=== PATIENT | male | born 1960 | race Caucasian/White ===

== ENCOUNTER → 2017-03-05 | Day surgery (SDC) | payer BC ==
[~2017-03-05] MED LIST: AMLODIPINE PO; ASPIR-LOW81 MG PO; BELLADONNA/OPIUM 60 MG SUPP PR ONE; DEXAMETHASONE SOD PHOS INJ 4 MG/ML VIAL ONE; FENTANYL CITRATE/PF 100MCG/2 ML INJ ONE; FENTANYL PATCH TOP; FENTANYL1 EAC1 TOP; FLUCONAZOLE PO; HYDROCODONE PO; IBUPROFEN PO; IOPAMIDOL 610MG/1ML 300 MG/ML VIAL IV ONE; KEYTRUDA IV; KLOR-CON20 MEQ PO; LIDOCAINE HCL 2% LOCAL INJ 5 ML SDV VIAL INJ ONE; LIOTHYRONINE SO5 MCG PO; LOSARTAN PO; METFORMIN HCL500 M2 PO; MIDAZOLAM HCL 2 MG/2 ML VIAL ONE; MYRBETRIQ50 MG PO; ONDANSETRON HCL INJ 2 MG/ML VIAL ONE; PANTOPRAZOLE SO40 MG PO; PIPERACILLIN/TAZO 2.25 GM 50 ML IV ONE; PRAVASTATIN PO; PRAVASTATIN SOD40 MG PO; PROPOFOL IV EMULSION 10 MG/ML 20 ML VIAL ONE; RANITIDINE HCL150 MG PO; SENNA LAX8.6 MG PO; SEVOFLURANE INHAL SOLN 250 ML PEN BTL ONE; TAMSULOSIN HCL0.4 MG PO; TYLENOL WITH C1 EAC1; TYLENOL WITH C1 EACH PO; VITAMIN D PO
--- NOTE | 2017-04-15 05:51 | Operative Report ---
DATE OF PROCEDURE: March 05, 2017 PREOPERATIVE DIAGNOSES 1. Bilateral ureteral strictures. 2. Bilateral hydronephrosis due to stricture. 3. Bilateral indwelling ureteral stents. POSTOPERATIVE DIAGNOSES 1. Bilateral ureteral strictures. 2. Bilateral hydronephrosis due to stricture. 3. Bilateral indwelling ureteral stents. OPERATIONS PERFORMED 1. Cystourethroscopy with complicated removal of bilateral indwelling double ureteral stents (separate procedure performed for the diagnosis of stents). 2. Cystourethroscopy with dilation of bilateral ureteral strictures (separate procedure performed for diagnosis of stricture). 3. Cystourethroscopy with insertion of a total of 4 indwelling ureteral stents, 2 in each side (separate procedure performed to relieve the hydronephrosis). 4. Radiological services for supervision and interpretation of stricture dilation. 5. Interpretation of retrograde ureteropyelography. 6. Supervision of fluoroscopy. No radiologist present. ANESTHESIA: General. COMPLICATIONS: None. CLINICAL SUMMARY: Please refer to prior operative reports. The patient's clinical status is unchanged. OPERATIVE PROCEDURE IN DETAIL: Informed consent was verified. Paulo Wolf was properly identified, taken to the operating room, placed on the cystoscopy table in supine position. Anesthesia was uneventfully begun. The patient was then carefully and gently repositioned in the dorsal lithotomy position with all pressure points well padded. His genitalia were prepared and draped in the usual sterile fashion. A 22.5-[place] cystoscope sheath with the visual obturator in place was atraumatically inserted into the patient's urethra. It was guided down the unremarkable distal urethra past the prostate bed and into the patient's bladder where panendoscopy revealed stents emerging from both ureteral orifices. A guidewire was then placed into the right ureter. We were then able to grasp both stents and extract them entirely and discard them. Dual lumen ureteral catheter was then utilized as a coaxial dilator sheath. It was introduced over the guidewire and guided to the level of the patient's kidney. Clear fluid was obtained. Contrast was injected. A secondary guidewire was placed. With cystoscopic and fluoroscopic guidance, 2 separate indwelling ureteral stents were placed on the right. They were both 6-[place] in size. An identical maneuver and identical results was obtained on the left hand side with the exception of the fact that dark cola colored urine was obtained from the left-sided hydronephrosis. This was sent for culture and sensitivity. With cystoscopic and fluoroscopic guidance, 2 separate indwelling ureteral stents were placed on left hand side, a 7-[place] and 6-[place] ureteral catheter. The retaining sutures were cut short. Interpretation of retrograde ureteropyelography: Contrast was instilled in a retrograde fashion bilaterally. There was bilateral hydronephrosis. It was worse on the left. The stents were in good position, coiled in the patient's kidneys as well as the patient's bladder at the end of the case. The patient's bladder was then drained. Cystoscope was withdrawn. A belladonna and opium suppository was placed revealing a smooth prostate that is difficult to size. No nodules were identified. The patient was then uneventfully reversed from anesthesia and taken to the recovery room in stable condition. There were no complications to the procedure. He tolerated the procedure well. Explicit postoperative instructions were given. We plan to follow the patient up in the office of course on a long-term basis. Job#: [id number] cc:MADALYN LAU MD
== END | disposition home or self-care (01) ==
LOC: OR 06:16
PROVIDERS: ATTEND Urology
DX: N13.1 Hydronephrosis with ureteral stricture, not elsewhere classified (principal); Z46.6 Encounter for fitting and adjustment of urinary device; E11.22 Type 2 diabetes mellitus with diabetic chronic kidney disease; I12.9 Hypertensive chronic kidney disease with stage 1 through stage 4 chronic kidney disease, or unspecified chronic kidney disease; N18.9 Chronic kidney disease, unspecified; Z85.118 Personal history of other malignant neoplasm of bronchus and lung
CPT/HCPCS: 52332; 52341; 74420; 87086; C2617 ×2; J1100; J2001; J2250; J2405; J2543; Q9967

== ENCOUNTER → 2017-05-04 | Outpatient (CLI) | payer BC ==
[~2017-05-04] MED LIST changes: -BELLADONNA/OPIUM 60 MG SUPP PR ONE; -DEXAMETHASONE SOD PHOS INJ 4 MG/ML VIAL ONE; -FENTANYL CITRATE/PF 100MCG/2 ML INJ ONE; -IOPAMIDOL 610MG/1ML 300 MG/ML VIAL IV ONE; -LIDOCAINE HCL 2% LOCAL INJ 5 ML SDV VIAL INJ ONE; -MIDAZOLAM HCL 2 MG/2 ML VIAL ONE; -ONDANSETRON HCL INJ 2 MG/ML VIAL ONE; -PIPERACILLIN/TAZO 2.25 GM 50 ML IV ONE; -PROPOFOL IV EMULSION 10 MG/ML 20 ML VIAL ONE; -SEVOFLURANE INHAL SOLN 250 ML PEN BTL ONE
--- NOTE | 2017-05-04 19:56 | Diagnostic Imaging Report ---
Renal Scan Reason for exam: 56 M with bilateral kidney stones x 30 years; dual bilateral ureteral stents replaced every 3 months since 08/2016. Radiopharmaceutical: Tc-99m MAG3 10 mCi Report: After administration of the radiopharmaceutical, dynamic images of the kidneys were obtained through 40 minutes. LEFT KIDNEY: Perfusion is prompt. The left kidney has a reniform shape with marked thinning of the renal cortex. Extraction of tracer from the blood pool by the remaining renal cortex is markedly decreased. No clearance of tracer from the renal parenchyma is seen during the study. The pelvicaliceal system is dilated. There is no pooling of tracer within the pelvicaliceal system. No drainage of tracer from the pelvicaliceal study occurs. No tracer is seen in the left ureter. RIGHT KIDNEY: Perfusion is prompt. The kidney has a reniform shape with mildly irregular contour and slight narrowing of the lower pole. Extraction of tracer from the blood pool is normal. Clearance of tracer from the renal parenchyma is prompt. The pelvicaliceal system is mild to moderately dilated. Increased pooling of tracer is seen within the pelvicaliceal system, predominantly in the renal pelvis. No net drainage of tracer is seen from the pelvicaliceal study during the study. No stasis of tracer is seen in the right ureter. DIFFERENTIAL RENAL FUNCTION: Left kidney 12% and right kidney 88% (normal 43-57%). Impression: 1. The left kidney consists of a thin rim of cortex but no tubular function is seen. The kidney contributes 12% of total renal function. 2. The right kidney shows some scarring but remaining renal parenchyma functions normally. Absence of net drainage of tracer from the pelvicalyceal system is worrisome for physiologically significant UPJ obstruction although this is not adequately assessed without Lasix washout. Signed by: Dr. Merary Castillo M.D. on 05/04/2017 7:53 PM
== END ==
LOC: NM 16:07
PROVIDERS: ATTEND Urology
DX: N13.30 Unspecified hydronephrosis (principal)
CPT/HCPCS: 78708; A9562

== ENCOUNTER → 2017-05-26 | Day surgery (SDC) | payer BC ==
[~2017-05-26] MED LIST changes: +BELLADONNA/OPIUM 60 MG SUPP PR ONE; +DEXAMETHASONE SOD PHOS INJ 4 MG/ML VIAL ONE; +FENTANYL CITRATE/PF 100MCG/2 ML INJ ONE; +FLUCONAZOLE 200 MG/100 ML 100 ML IV ONE; +IOPAMIDOL 610MG/1ML 300 MG/ML VIAL IV ONE; +LEVOTHYROXINE88 MCG PO; +LIDOCAINE HCL 2% LOCAL INJ 5 ML SDV VIAL INJ ONE; +MIDAZOLAM HCL 2 MG/2 ML VIAL ONE; +ONDANSETRON HCL INJ 2 MG/ML VIAL ONE; +PIPER-TAZ 3.375 GM 50 ML ONE; +PROPOFOL IV EMULSION 10 MG/ML 20 ML VIAL ONE; +SEVOFLURANE INHAL SOLN 250 ML PEN BTL ONE
--- OUTSIDE RECORDS SUMMARY | 2017-05-26 07:47 | XMS REPORT ---
Author Author [facility] Address Unknown Phone Unavailable Care Team Providers [facility] Specialist Name Role Phone SABRINA MARTINS Unavailable Unavailable Problems This patient has no known problems. Allergies, Adverse Reactions, Alerts This patient has no known allergies or adverse reactions. Medications This patient has no known medications. Results Test Description Test Time Test Comments Text Results Atomic Results Result Comments RENAL SCAN W/LASIX [place] [address] Patient Name: MARYBETH BISWAS MR #: [id number] : 1960 Age/Sex: 56/M Req #: [id number] Adm Physician: Ordered by: SABRINA MARTINS MD Report #: [id number] Location: [place] Room/Bed: Procedure: [id number] NM/ RENAL SCAN W/LASLARS Exam Date: 05/04/17 Exam Time: 1615 REPORT STATUS: Signed Renal Scan Reason for exam: 56 M with bilateral kidney stones x 30 years; dual bilateral ureteral stents replaced every 3 months since 08/2016. Radiopharmaceutical: Tc-99m MAG3 10 mCi Report: After administration of the radiopharmaceutical, dynamic images of the kidneys were obtained through 40 minutes. LEFT KIDNEY: Perfusion is prompt. The left kidney has a reniform shape with marked thinning of the renal cortex. Extraction of tracer from the blood pool by the remaining renal cortex is markedly decreased. No clearance of tracer from the renal parenchyma is seen during the study. The pelvicaliceal system is dilated. There is no pooling of tracer within the pelvicaliceal system. No drainage of tracer from the pelvicaliceal study occurs. No tracer is seen in the left ureter. RIGHT KIDNEY: Perfusion is prompt. The kidney has a reniform shape with mildly irregular contour and slight narrowing of the lower pole. Extraction of tracer from the blood pool is normal. Clearance of tracer from the renal parenchyma is prompt. The pelvicaliceal system is mild to moderately dilated. Increased pooling of tracer is seen within the pelvicaliceal system, predominantly in the renal pelvis. No net drainage of tracer is seen from the pelvicaliceal study during the study. No stasis of tracer is seen in the right ureter. DIFFERENTIAL RENAL FUNCTION: Left kidney 12% and right kidney 88% (normal 43-57%). Impression: 1. The left kidney consists of a thin rim of cortex but no tubular function is seen. The kidney contributes 12% of total renal function. 2. The right kidney shows some scarring but remaining renal parenchyma functions normally. Absence of net drainage of tracer from the pelvicalyceal system is worrisome for physiologically significant UPJ obstruction although this is not adequately assessed without Lasix washout. Signed by: Dr. Moshe Cast M.D. on 05/04/2017 7:53 PM Dictated By: MOSHE CAST MD 52 Transcribed By: RIKKI on 05/04/171952 COPY TO: SABRINA MARTINS MD
--- NOTE | 2017-07-18 13:08 | Operative Report ---
DATE OF PROCEDURE: May 26, 2017 PREOPERATIVE DIAGNOSES 1. Elevated prostate specific antigen. 2. Bilateral ureteral strictures. 3. Bilateral hydronephrosis due to stricture. 4. Bilateral ureteral stents (foreign bodies). POSTOPERATIVE DIAGNOSES 1. Elevated prostate specific antigen. 2. Bilateral ureteral strictures. 3. Bilateral hydronephrosis due to stricture. 4. Bilateral ureteral stents (foreign bodies). PROCEDURES PERFORMED 1. Prostate biopsies (separately performed from a separate approach for a separate diagnosis). 2. Interpretation of prostate ultrasound. 3. Interpretation of ultrasonographic guidance for needle biopsies of the prostate. 4. Cystourethroscopy with removal of bilateral ureteral stents (separate procedure performed for the diagnosis of stents). 5. Cystourethroscopy with dilation of bilateral ureteral strictures (separate procedure performed for the bilateral strictures). 6. Cystourethroscopy with placement of bilateral double ureteral stents (separate procedure performed to relieve the hydronephrosis with placing of 4 total stents into 2 ureters). 7. Urological services for supervision and interpretation for stricture dilation. 8. Interpretation of retrograde ureteropyelography. 9. Supervision of fluoroscopy; no radiologist present. ANESTHESIA: General. COMPLICATIONS: None. CLINICAL SUMMARY: Please refer to patient's voluminous chart and previous operative reports. The patient does have an elevated PSA and we plan on evaluating that further. OPERATIVE PROCEDURE IN DETAIL: Informed consent was verified. Paulo Wolf was properly identified, taken to the operating room, and placed on the cystoscopy table in supine position. Anesthesia was uneventfully begun. Patient was then carefully and gently repositioned in dorsal lithotomy position with all pressure points well padded. Transrectal sonography was performed. Real time sonography was performed. The patient's prostate was rather large at 95 mL. There were calcifications that were present diffusely. No suspicious hypoechoic lesions were identified. With ultrasonographic guidance, needle biopsies of the prostate were taken. Two biopsies were taken at each of 6 places. These were differentiated right versus left and base versus mid versus apex. Once all biopsies were obtained, the patient's genitalia were prepared and draped in usual sterile fashion. The 22.5-[place] cystoscope sheath with a visual obturator in place was atraumatically inserted in the patient's urethra and guided down the unremarkable urethra past some wide caliber non-clinically significant stricturing at the bulbar region and went through a normal sphincteric region and through the long prostate bed with significantly firm and visually obstructing bilateral BPH. Panendoscopy in the bladder revealed no suspicious lesions, no tumors, and no stones. Two sets of stents were each emerging from the respective ureteral orifices. We first gave our attention to the right kidney. A guidewire was then placed alongside the stents. The stents were grasped, completely removed, and discarded. Double-lumen ureteral catheter was then placed over the guidewire and utilized as a coaxial dilator sheath. It was passed to the level of the proximal ureter in the renal pelvis. Contrast was injected performing retrograde pyelograms and a secondary guidewire was placed. With cystoscopic and fluoroscopic guidance, 2 separate right-sided indwelling ureteral stents were placed. They were coiled in patient's kidney as well as patient's bladder. The retaining sutures were removed. An identical maneuver was performed on the left hand side with identical results. Interpretation of retrograde ureteropyelography: Contrast was instilled in a retrograde fashion bilaterally via the coaxial dilating double-lumen catheter. There was bilateral hydronephrosis and bilateral calyceal blunting. No suspicious lesions were identified. There was no evidence of any stones. The stents were in good position, coiled in the patient's kidneys as well as the patient's bladder at the end of the case. The patient's bladder was drained. Cystoscope was withdrawn. We will plan to follow the patient up in the office. Urine culture specimens were obtained from both renal pelves. Job#: [id number] RONI cc:Robi Card MD
== END | disposition home or self-care (01) ==
LOC: OR 07:45
PROVIDERS: ATTEND Urology
DX: N13.1 Hydronephrosis with ureteral stricture, not elsewhere classified (principal); R97.20 Elevated prostate specific antigen [PSA]; N42.30 Unspecified dysplasia of prostate; Z46.6 Encounter for fitting and adjustment of urinary device; N40.1 Benign prostatic hyperplasia with lower urinary tract symptoms; N41.0 Acute prostatitis; N13.8 Other obstructive and reflux uropathy; N42.89 Other specified disorders of prostate; E66.01 Morbid (severe) obesity due to excess calories; I10 Essential (primary) hypertension; I45.10 Unspecified right bundle-branch block; Z01.810 Encounter for preprocedural cardiovascular examination; Z79.82 Long term (current) use of aspirin; Z85.118 Personal history of other malignant neoplasm of bronchus and lung
CPT/HCPCS: 52332; 52341; 55700; 74420; 76872; 76942; 87086; 88305; 93005; C2617 ×2; J1100; J1450; J2001; J2250; J2405; J2543; Q9967

== ENCOUNTER → 2017-08-20 | Day surgery (SDC) | payer BC ==
[~2017-08-20] MED LIST changes: +FINASTERIDE5 MG PO; +FLUCONAZOLE100 MG PO; +VALACYCLOVIR500 MG PO
--- NOTE | 2017-08-20 10:07 | Diagnostic Imaging Report ---
PROCEDURE:ABDOMEN-1VIEW (KUB) TECHNIQUE:Supine AP abdomen totaling 2 radiographs INDICATION:Preoperative evaluation for urology surgery COMPARISON:[facility], DX, RETROGRADE PYELOGRAM, 05/26/2017, 8:26. FINDINGS: Double-J ureteral stents are in place bilaterally, 2 on each side. No evidence of stent encrustation or migration. 0.4 cm stone over the left mid segment. Otherwise, no conspicuous calcifications. Normal bowel gas pattern. L1 kyphoplasty. Intact regional skeleton. CONCLUSION: Indwelling double-J ureteral stents without acute abnormality. Dictated by: You Dan M.D. on 08/20/2017 at 10:09 Electronically approved by: You Dan M.D. on 08/20/2017 at 10:09
--- NOTE | 2017-09-26 02:52 | Operative Report ---
DATE OF PROCEDURE: August 20, 2017 PREOPERATIVE DIAGNOSES 1. Bilateral urethral strictures. 2. Bilateral hydronephrosis. 3. Bilateral double indwelling ureteral stents. POSTOPERATIVE DIAGNOSES 1. Bilateral urethral strictures. 2. Bilateral hydronephrosis. 3. Bilateral double indwelling ureteral stents. PROCEDURES PERFORMED 1. Cystourethroscopy with complicated removal of bilateral indwelling ureteral stents (separately performed for diagnosis of stents). 2. Cystourethroscopy with bilateral dilation of the urethral strictures (separately performed for diagnosis of the strictures). 3. Cystourethroscopy with placement of 2 indwelling ureteral stents on each side for a total of 4 stents being placed (separately performed to relieve the hydronephrosis). 4. Urological services for supervision and interpretation of stricture dilation. 5. Interpretation of retrograde ureteropyelography. 6. Supervision of fluoroscopy; no radiologist present. ANESTHESIA: General. COMPLICATIONS: None. CLINICAL SUMMARY: Paulo Wolf is a complicated 56-year-old man with advanced cancer. The patient has severe bilateral urethral strictures and has necessitated the maintenance of 2 separate indwelling ureteral stents on each side. The patient is brought for routine change. He has chronic renal insufficiency. He is aware of the risks of bleeding, infection and injury to adjacent structures, need for additional procedures. He understands these indwelling stents are temporary and require changing on a regular basis. He understood all these risks and elected to proceed. OPERATIVE PROCEDURE IN DETAIL: Informed consent was verified. Paulo Wolf properly identified, taken to the operating room, and placed on the cystoscopy table in supine position. Anesthesia was uneventfully begun. The patient was then carefully and gently repositioned in dorsal lithotomy position with all pressure points well padded. His genitalia were prepared and draped in usual sterile fashion. A 22.5-[place] cystoscope sheath with a visual obturator in place was atraumatically inserted per patient's urethra. It was guided down the urethra, which exhibited blanching of the mucosa and wide caliber scarring but no clinically significant strictures could be appreciated. The sphincter was normal. Prostate was significant for visually obstructing bilobar BPH. We entered the patient's bladder and panendoscopy revealed 2 stents emerging from each ureteral orifice. A guidewire was then placed into the right ureter and guided to the level of the patient's kidney. Both stents were then grasped and removed. We then placed a double-lumen ureteral catheter over the initial guidewire and brought it up to the renal pelvis as we injected contrast. We then dilated the patient's right ureter to the size of the coaxial dilator sheath. We obtained a relatively clear hydronephrotic drip. A secondary guidewire was then placed and the coaxial dilator was removed. Two separate right-sided indwelling ureteral stents were then placed with cystoscope and fluoroscopic guidance. These stents were coiled in the patient's kidney as well as the patient's bladder. The guidewire was then placed in the left ureter and guided to the level of the patient's kidney. The stents were then grasped and removed and discarded. Coaxial dilator sheath was then utilized in the form of the double lumen ureteral catheter was brought up into the patient's left kidney, and we obtained a slightly cloudy hydronephrotic drip. Once we dilated the stricture, contrast was left in place and a secondary guidewire was left in place. Two separate indwelling ureteral stents were then placed on the left hand side as well with cystoscopic and fluoroscopic guidance. The stents were coiled in the patient's kidney as well as the patient's bladder. Interpretation of retrograde ureteropyelography: Contrast was instilled in retrograde fashion bilaterally. There was bilateral hydronephrosis that was worse on the left hand side. There was calyceal blunting. The stents were in good position coiled in the patient's kidneys as well as the patient's bladder at the end of the case. Patient's bladder was drained. The cystoscope was withdrawn. A belladonna and opium suppository was placed, and the patient was uneventfully reversed from anesthesia and taken to the recovery room in stable condition. There were no complications to the procedure. He tolerated the procedure well. Explicit postoperative instructions were given and we will plan to return to the operating room in approximately one month, and of course, at that point in time, we will reevaluate him and determine the next operative date for the performance of this entire procedure again. Job#: [id number] RONI cc:MADALYN LAU MD
== END | disposition home or self-care (01) ==
LOC: OR 09:08
PROVIDERS: ATTEND Urology
DX: N13.5 Crossing vessel and stricture of ureter without hydronephrosis (principal); N13.30 Unspecified hydronephrosis; N40.1 Benign prostatic hyperplasia with lower urinary tract symptoms; N13.8 Other obstructive and reflux uropathy; N36.8 Other specified disorders of urethra; Z46.6 Encounter for fitting and adjustment of urinary device; B37.49 Other urogenital candidiasis; R97.20 Elevated prostate specific antigen [PSA]; E29.1 Testicular hypofunction; I12.9 Hypertensive chronic kidney disease with stage 1 through stage 4 chronic kidney disease, or unspecified chronic kidney disease; N18.9 Chronic kidney disease, unspecified; E66.01 Morbid (severe) obesity due to excess calories; I45.10 Unspecified right bundle-branch block; R73.03 Prediabetes; Z88.8 Allergy status to other drugs, medicaments and biological substances; Z79.82 Long term (current) use of aspirin; Z68.39 Body mass index [BMI] 39.0-39.9, adult; Z87.442 Personal history of urinary calculi; Z85.118 Personal history of other malignant neoplasm of bronchus and lung; Z80.42 Family history of malignant neoplasm of prostate
CPT/HCPCS: 52332; 52341; 74018; 87086; C2617; J1100; J1450; J2001; J2250; J2405; J2543; Q9967; 74420

== ENCOUNTER → 2018-01-14 | Day surgery (SDC) | payer BC ==
[~2018-01-14] MED LIST changes: +ACETAMINOPHEN325 M1 PO; +AMLODIPINE BESY10 MG PO; +CEFTRIAXONE SOD 1 GM VIAL ONE; -PIPER-TAZ 3.375 GM 50 ML ONE
--- NOTE | 2018-01-14 09:16 | Diagnostic Imaging Report ---
PROCEDURE:X-RAY ABDOMEN - KUB COMPARISON:08/20/2017. INDICATIONS:PREOPERATIVE XRAY FOR STENT EXCHANGE FINDINGS: A total of 4 internal ureteral stents are noted, 2 on each side. Proximal locking loops project over the expected areas of the renal pelves. The distal locking loops project over the urinary bladder at midline. No definite calcifications project over the renal shadows or along side the ureteral portion of the stent. No evidence of stent encrustation. Vertebroplasty cement at L1. Otherwise intact regional skeletal structures. Bowel gas pattern is nonobstructive. CONCLUSION: Appropriately positioned indwelling ureteral stents. No plain film evidence of urolithiasis. Dictated by: Paulo Pettit M.D. on 01/14/2018 at 9:24 Electronically approved by: Paulo Pettit M.D. on 01/14/2018 at 9:24
[2018-01-14 10:55] VITALS: BP 125/76
--- NOTE | 2018-03-03 01:22 | Operative Report ---
DATE OF PROCEDURE: January 14, 2018 PREOPERATIVE DIAGNOSES 1. Bilateral ureteral strictures. 2. Bilateral hydronephrosis due to stricture. 3. Bilateral indwelling ureteral stents. POSTOPERATIVE DIAGNOSES 1. Bilateral ureteral strictures. 2. Bilateral hydronephrosis due to stricture. 3. Bilateral indwelling ureteral stents. OPERATIONS PERFORMED 1. Cystourethroscopy with removal of bilateral indwelling ureteral stents (separate procedure performed for the diagnosis of stents). 2. Cystourethroscopy with bilateral dilation of ureteral strictures (separate procedure for the diagnosis of strictures). 3. Radiological services for supervision and interpretation of stricture dilation. 4. Cystourethroscopy with insertion of 4 separate indwelling ureteral stents, 2 on each side (separate procedure performed to relieve the hydronephrosis caused by the strictures). 5. Interpretation of retrograde ureteropyelography. 6. Supervision of fluoroscopy. No radiologist present. ANESTHESIA: General. COMPLICATIONS: None. CLINICAL SUMMARY: Paulo Wolf is a very complicated patient. Please refer to prior dictations for details. He has the above preoperative diagnoses and he is brought for the above procedures. He is aware of the risks of bleeding, infection, injury to adjacent structures, need for regular stent changes, and need for regular urological followup. He understood all these risks and elected to proceed. OPERATIVE PROCEDURE IN DETAIL: Informed consent was verified. Paulo Wolf was properly identified, taken to the operating room, placed on the cystoscopy table in supine position. Anesthesia was uneventfully begun. The patient was then carefully and gently repositioned in dorsal lithotomy position with all pressure points well padded. His genitalia were prepared and draped in usual sterile fashion. A 22.5-Jordanian cystoscope sheath was inserted in patient's urethra. It was guided down the relatively unremarkable urethra past a normal sphincteric region through the prostate bed, was significant for bilobar prostatic hypertrophy with kissing lateral lobes and visual obstruction. Panendoscopy of urinary bladder revealed no suspicious mucosal lesions. Two stents were emerging from each ureteral orifice. A guidewire was then placed into the right ureter and guided to level of patient's kidney. The stents were grasped, completely removed, and discarded. A double-lumen ureteral catheter was then placed over the guidewire and guided to the level of the patient's kidney. A relatively clear hydronephrotic drip was obtained. We dilated the ureteral strictures utilizing a double-lumen ureteral catheter as a coaxial dilator sheath. Contrast was injected. A secondary guidewire was placed. Under cystoscopic fluoroscopic guidance, 2 separate indwelling ureteral stents were placed. They were coiled in the patient's kidney, as well as patient's bladder. The retaining suture was cut short on the right. An identical procedure with identical results was performed on the left-hand side. Interpretation of retrograde ureteropyelography: Contrast was instilled in retrograde fashion bilaterally. There was bilateral chronic hydronephrosis. The stents were in good position and coiled in the patient's kidney, as well as patient's bladder at the end of the case. During this procedure, we changed the patient from having a total of 4 stents that were all 7-Jordanian x 26 cm in length, 2 of the stents that were 7-Jordanian x 24 cm in length. They seemed to fit better within the patient's collecting system. The patient's bladder was then drained. Cystoscope was withdrawn. Digital rectal examination revealed a 40-g prostate, smooth, and non-fluctuant, without any nodules. Patient was then uneventfully reversed from anesthesia and taken to recovery room in stable condition. There were no complications to the procedure. He tolerated the procedure well. Explicit postop instructions were given and will follow the patient up in the office and of course for regular stent changes. Job#: [id number]
== END | disposition home or self-care (01) ==
LOC: OR 07:55
PROVIDERS: ATTEND Urology
DX: N13.1 Hydronephrosis with ureteral stricture, not elsewhere classified (principal); N40.1 Benign prostatic hyperplasia with lower urinary tract symptoms; N13.8 Other obstructive and reflux uropathy; Z46.6 Encounter for fitting and adjustment of urinary device; Z96.0 Presence of urogenital implants; I12.9 Hypertensive chronic kidney disease with stage 1 through stage 4 chronic kidney disease, or unspecified chronic kidney disease; N18.9 Chronic kidney disease, unspecified; E03.9 Hypothyroidism, unspecified; I45.10 Unspecified right bundle-branch block; Z88.8 Allergy status to other drugs, medicaments and biological substances; Z01.810 Encounter for preprocedural cardiovascular examination; Z79.82 Long term (current) use of aspirin; Z85.118 Personal history of other malignant neoplasm of bronchus and lung
CPT/HCPCS: 52332; 52341; 74420; 93005; C2617; J0696; J1100; J1450; J2001; J2250; J2405; J2704; Q9967; 74018

== ENCOUNTER 2018-02-23 13:09 | Inpatient (IN) | payer BC ==
[~2018-02-23] VITALS: Ht 175.3 cm; Wt 113.0 kg
[~2018-02-23 13:09] MED LIST changes: -ACETAMINOPHEN325 M1 PO; -BELLADONNA/OPIUM 60 MG SUPP PR ONE; -CEFTRIAXONE SOD 1 GM VIAL ONE; -DEXAMETHASONE SOD PHOS INJ 4 MG/ML VIAL ONE; -FENTANYL CITRATE/PF 100MCG/2 ML INJ ONE; -FLUCONAZOLE 200 MG/100 ML 100 ML IV ONE; -IOPAMIDOL 610MG/1ML 300 MG/ML VIAL IV ONE; -LIDOCAINE HCL 2% LOCAL INJ 5 ML SDV VIAL INJ ONE; -MIDAZOLAM HCL 2 MG/2 ML VIAL ONE; -ONDANSETRON HCL INJ 2 MG/ML VIAL ONE; -PROPOFOL IV EMULSION 10 MG/ML 20 ML VIAL ONE; -SEVOFLURANE INHAL SOLN 250 ML PEN BTL ONE
[2018-02-23 13:49] LABS: BASOPHILS % 0.6 % (0.0-1.0); EOSINOPHILS # (AUTO) 0.2 (0.0-0.4); EOSINOPHILS % 3.1 % (0.0-6.0); HEMATOCRIT 36.8 % (38.2-49.6); LYMPHOCYTES # (AUTO) 0.5 (1.0-3.2); LYMPHOCYTES % 6.7 % (18.0-39.1); MEAN CORPUSCULAR HEMOGLOBIN 27.1 pg (28-32); MEAN CORPUSCULAR HGB CONC 32.6 g/dL (31-35); MEAN CORPUSCULAR VOLUME 83.1 fL (81-99); MONOCYTES # (AUTO) 0.6 (0.2-0.8); MONOCYTES % 8.4 % (4.4-11.3); NEUTROPHILS # (AUTO) 5.6 (2.1-6.9); NEUTROPHILS % 79.6 % (38.7-80.0); PLATELET COUNT 201 x10e3/uL (140-360); RED BLOOD COUNT 4.43 x10e6/uL (4.3-5.7); RED CELL DISTRIBUTION WIDTH 15.9 % (11.7-14.4)
[2018-02-23 14:01] LABS: ALBUMIN 3.1 g/dL (3.5-5.0); ALBUMIN/GLOBULIN RATIO 0.7 (0.8-2.0); ANION GAP 19.2 mmol/L (8-16); CALCIUM 9.6 mg/dL (8.4-10.2); CREATININE, SERUM 9.66 mg/dL (0.72-1.25)
[2018-02-23 14:07] LABS: POTASSIUM 5.2 mmol/L (3.5-5.1)
[2018-02-23 14:08] LABS: CREATINE KINASE MB 1.8 ng/mL (0-5.0)
--- NOTE | 2018-02-23 14:53 | Diagnostic Imaging Report ---
CT Abdomen and Pelvis without contrast INDICATION: Left flank pain and burning with urination, elevated creatinine, metastatic lung cancer. TECHNIQUE: Thin collimation axial images obtained from the diaphragm to the level of the pubic symphysis without nonionic intravenous contrast. Dose reduction techniques used: Automated exposure control, adjustment of the mAs and/or kVp according to patient size, standardized low-dose protocol, and/or iterative reconstruction technique. RADIATION DOSE: Total DLP: 917.3 mGy*cm Estimated effective dose: (DLP x 0.015 x size factor) mSv CTDIvol has been reviewed. It is below the limits set by the Radiation Protocol Committee (RPC). COMPARISON: Abdomen x-ray 09/30/2016, renal scan 05/04/2017. ABDOMEN FINDINGS: Lung Bases: Posterior layering right pleural effusion measures 3.3 cm. There is eventration of the right diaphragm. No evidence of left pleural effusion. There are calcifications along the mediastinum and right hilum that may or may not be postoperative. There is atelectasis at the hilum of the right lung. Coronary artery calculi are present, moderate. Small pericardial effusion. The esophagus is collapsed. Liver: Normal in attenuation without mass. Gallbladder: Present and appears normal. No ductal dilatation. Pancreas: Fatty atrophy. No mass or ductal dilatation. Spleen: Measures 13.3 cm in length. No mass. Adrenal Glands: No evidence for mass. Kidneys: Diffuse perinephric inflammation. Right: Marked hydronephrosis with 2 stents in the collecting system extending into the bladder. No encrustations. No calculus in the collecting system. An upper pole cyst measures 5.0 x 5.1 cm. Left: Marked hydronephrosis with 2 stents in the collecting system extending into the bladder. No encrustations. No intrarenal calculi. There is diffuse cortical atrophy. No mass. Lymph Nodes: A right paracaval lymph node measures 1.1 x 1.0 cm. Left periaortic lymph nodes are increased in number and size, measuring up to 13 mm. Aorta: Normal in diameter with scattered calcifications. PELVIS FINDINGS: Bowel: Stomach: Normal. Small Bowel: Normal in caliber with normal wall thickness. There is suggestion of a duodenal diverticulum at the second/third portion of the duodenum. Large Bowel: Normal in caliber with normal wall thickness. Appendix: Normal. Bladder: Mild circumferential mural thickening. No intraluminal calculi. Ureters: No calcifications along the course of the stents. The prostate gland measures 5.4 x 5.9 cm. No free fluid or fluid collection. Bones: Treated compression deformity of T1 is stable. There is mild kyphosis at T12-L1. No new compression deformities. Sclerotic, nondestructive lesion in the right seventh rib. No destructive lesions. IMPRESSION: 1. Bilateral hydronephrosis with 2 stents in each collecting system terminating in the bladder. If there has been a sudden marked increase in patient's creatinine, consider percutaneous nephrostomy to decompress the right renal collecting system. 2. Prominent retroperitoneal lymph nodes and may be secondary to chronic hydroureteronephrosis. A superimposed infection cannot be excluded. 3. Prostate hypertrophy. 4. Small right pleural and pericardial effusions. 5. Right renal cyst. 6. 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 Signed by: Dr. Teressa Petersen MD on 02/23/2018 2:49 PM
[2018-02-23] MEDS ORDERED: SOD POLYSTYRENE SULFONATE SUSP 15 GM/60 ML BTL PR ONE (17:15)
[2018-02-23 18:10] VITALS: BP 154/71
[2018-02-23 18:36] VITALS: BP 143/67
[2018-02-23 20:00] VITALS: BP 163/74
[2018-02-23] MEDS ORDERED: ACETAMINOPHEN325 M1 PO (21:35)
[2018-02-23] MEDS ORDERED: ACETAMINOPHEN 325 MG TAB PO PRN (21:45)
[2018-02-24] VITALS (7 sets, daily range): BP systolic 124–157; BP diastolic 67–86
[2018-02-24] MEDS: LEVOTHYROXINE SODIUM 75 MCG TAB PO SCH (02:00)
[2018-02-24] MEDS ORDERED: LIOTHYRONINE SODIUM 5 MCG TAB PO SCH ×2 (02:00→09:00)
[2018-02-24] MEDS ORDERED: LEVOTHYROXINE SODIUM 75 MCG TAB PO SCH (06:00)
[2018-02-24 06:05] LABS: ANION GAP 16.5 mmol/L (8-16); CALCIUM 8.9 mg/dL (8.4-10.2); CREATININE, SERUM 9.19 mg/dL (0.72-1.25); MAGNESIUM 2.1 MG/DL (1.3-2.1); POTASSIUM 4.5 mmol/L (3.5-5.1)
[2018-02-24 06:35] LABS: BASOPHILS % 0.5 % (0.0-1.0); EOSINOPHILS # (AUTO) 0.5 (0.0-0.4); EOSINOPHILS % 5.9 % (0.0-6.0); HEMOGLOBIN 11.2 g/dL (14.0-18.0); LYMPHOCYTES # (AUTO) 0.4 (1.0-3.2); LYMPHOCYTES % 5.5 % (18.0-39.1); MEAN CORPUSCULAR HEMOGLOBIN 27.3 pg (28-32); MEAN CORPUSCULAR HGB CONC 32.9 g/dL (31-35); MEAN CORPUSCULAR VOLUME 82.7 fL (81-99); MONOCYTES # (AUTO) 0.9 (0.2-0.8); MONOCYTES % 11.2 % (4.4-11.3); NEUTROPHILS % 75.2 % (38.7-80.0); PLATELET COUNT 182 x10e3/uL (140-360); RED BLOOD COUNT 4.11 x10e6/uL (4.3-5.7)
--- NOTE | 2018-02-24 06:36 | History and Physical ---
Patient is a 57-year-old gentleman who presented with elevated creatinine to . HISTORY OF PRESENT ILLNESS: The patient is a 57-year-old gentleman with a history of cancer, on chronic immunotherapy with treatment. Has a history of bilateral kidney stones due to hydronephrosis from stones, BPH, was seen as outpatient where creatinine was elevated to 10. He was admitted for further diagnosis and treatment. PAST MEDICAL HISTORY: Significant for cancer, BPH, hypothyroidism, hyperlipidemia. MEDICATIONS: See MAR. ALLERGIES: PHENERGAN. SOCIAL HISTORY: Lives at home with his . Nonsmoker and nondrinker. REVIEW OF SYSTEMS: No fevers. . PHYSICAL EXAMINATION VITALS: Temperature 96.1, pulse 91, blood pressure 121/67, sats 97% on room air. GENERAL: No apparent distress. NECK: Supple. No lymphadenopathy. CARDIOVASCULAR: Regular rate and rhythm. LUNGS: Clear to auscultation bilaterally. ABDOMEN: Good bowel sounds. EXTREMITIES: No clubbing or cyanosis. NEUROLOGICAL: Nonfocal. ASSESSMENT AND PLAN 1. [id number] renal failure: Will consult renal. Dr. Zendejas has already seen and evaluated the patient. 2. Bilateral hydronephrosis with stents: Dr. Zendejas will see the patient today to help out. 3. BPH: Continue with his Flomax. 4. Hyperlipidemia: Continue with his Pravastatin. 5. Hypothyroidism: Continue with his medications. Please see hospital chart for details. Job#: [id number] AL
[2018-02-24] MEDS: AMLODIPINE BESYLATE 10 MG TAB PO SCH (08:15)
[2018-02-24] MEDS: TAMSULOSIN HCL 0.4 MG CAP PO SCH ×2 (08:15→17:36)
[2018-02-24] MEDS: ASPIRIN 81 MG CHEW TAB PO SCH (08:15)
[2018-02-24] MEDS: SENNOSIDES 8.6 MG TAB PO SCH (08:47)
[2018-02-24] MEDS ORDERED: SENNOSIDES 8.6 MG TAB PO SCH (09:00)
[2018-02-24] MEDS ORDERED: LEVOTHYROXINE SODIUM 88 MCG TAB PO SCH (09:00)
[2018-02-24] MEDS ORDERED: NON-FORMULARY MEDICATION (Pravastatin Sodium 40 MG) PO SCH (09:00)
--- NOTE | 2018-02-24 16:20 | Consultation ---
DATE OF CONSULTATION: February 24, 2018 A 57-year-old gentleman with existing history of chronic kidney disease, history of lung cancer, lobectomy, chemotherapy, and now on immunotherapy with a history of bilateral hydronephrosis. Has had frequent stent exchanged. Went for his immunotherapy and found to have a creatinine of 10. Was referred here to the hospital. He chose to come to [facility] because he wanted to maintain his care with Dr. Jorge Zendejas. Dr. Jorge Zendejas has seen the patient. CT scan suggestive of the bilateral hydronephrosis, right more than left. He is afebrile. Denies any fever, chills, chest pain, shortness of breath. Sitting up. ALLERGIES: PROMETHAZINE. CURRENT LABS: Show a white count of 8, hemoglobin 11.2. Potassium 4.5, bicarbonate 16, creatinine 9.19. The patient states that he is making urine though. Urine cultures are pending. PAST HISTORY: Significant for chronic kidney disease, stage 3 with history of recurrent hydronephrosis and ureteral obstruction requiring frequent stent exchanges usually every 3 months. He missed in September. Also, history of hypertension. MEDICATIONS: Currently on: 1. Amlodipine 10 mg daily. 2. Aspirin 81 mg daily. 3. Levothyroxine 75 mcg once a day. 4. 5 mcg p.o. daily. 5. Pravastatin 40 mg at bedtime. 6. Flomax 0.4 mg p.o. b.i.d. SOCIAL HISTORY: Patient is . Does not smoke or drink. FAMILY HISTORY: Significant for hypertension. PHYSICAL EXAMINATION GENERAL: Awake, alert, and laying supine. No apparent distress. VITALS: Blood pressure of 130/60, pulse rate 80. HEAD AND NECK: Cornea clear. Mucosa moist. LUNGS: Clear. No rales. HEART: S1 and S2 audible. ABDOMEN: Otherwise soft and nontender. LOWER EXTREMITY EXAMINATION: Shows no edema. IMPRESSION 1. Bilateral hydronephrosis. 2. Obstructive uropathy with consequent distal renal tubular acidosis. 3. Underlying chronic kidney disease. 4. Nephrosclerosis. 5. Lung cancer survivor with multiple other comorbidities. Patient needs his stents replaced as soon as possible. Deferred to Dr. Jorge Zendejas. CT scan noted. CT scan reviewed with the patient. of lymph nodes. There is prostatic hypertrophy. There is a small right and small pericardial effusion with some elevation of right hemidiaphragm on CT scan. Please see official report. Job#: [id number] RI
[2018-02-24] MEDS: SODIUM BICARBONATE 8.4% SYRING 150 ML in DEXTROSE 5% 1,000 ML IV SCH (17:36)
[2018-02-24] MEDS ORDERED: PRAVASTATIN 20 MG TAB PO SCH (21:00)
[2018-02-24] MEDS ORDERED: CEFTRIAXONE SOD 1 GM VIAL IV SCH (21:30)
[2018-02-24] MEDS ORDERED: DIPHENHYDRAMINE HCL INJ 50 MG/ML VIAL IV PRN (22:15)
[2018-02-24] MEDS ORDERED: FLUCONAZOLE 200 MG/100 ML 100 ML IV ONE (23:14)
[2018-02-24] MEDS: FLUCONAZOLE 100 MG/NS 50 ML 50 ML IV SCH (23:18)
[2018-02-25] VITALS (8 sets, daily range): BP systolic 119–137; BP diastolic 59–86
[2018-02-25] MEDS: LEVOTHYROXINE SODIUM 75 MCG TAB PO SCH (02:01)
[2018-02-25] MEDS: LIOTHYRONINE SODIUM 5 MCG TAB PO SCH (02:01)
[2018-02-25 05:52] LABS: ALBUMIN 2.8 g/dL (3.5-5.0); ALBUMIN/GLOBULIN RATIO 0.8 (0.8-2.0); ANION GAP 18.9 mmol/L (8-16); CALCIUM 9.2 mg/dL (8.4-10.2); CREATININE, SERUM 8.45 mg/dL (0.72-1.25); POTASSIUM 3.9 mmol/L (3.5-5.1)
[2018-02-25] MEDS ORDERED: IOPAMIDOL 610MG/1ML 300 MG/ML VIAL IV ONE (08:46)
[2018-02-25] MEDS: TAMSULOSIN HCL 0.4 MG CAP PO SCH ×2 (09:00→18:06)
[2018-02-25] MEDS ORDERED: BELLADONNA/OPIUM 60 MG SUPP PR ONE (12:07)
[2018-02-25] MEDS: AMLODIPINE BESYLATE 10 MG TAB PO SCH (13:23)
[2018-02-25] MEDS: SODIUM BICARBONATE 8.4% SYRING 150 ML in DEXTROSE 5% 1,000 ML IV SCH ×2 (13:23→23:19)
[2018-02-25] MEDS: ASPIRIN 81 MG CHEW TAB PO SCH (13:23)
[2018-02-25] MEDS: PHENAZOPYRIDINE HCL 100 MG TAB PO SCH ×2 (13:23→18:06)
[2018-02-25] MEDS: SENNOSIDES 8.6 MG TAB PO SCH (13:23)
[2018-02-25] MEDS ORDERED: DEXAMETHASONE SOD PHOS INJ 4 MG/ML VIAL ONE (15:20)
[2018-02-25] MEDS ORDERED: DESFLURANE 240 ML BTL INH ONE (15:20)
[2018-02-25] MEDS ORDERED: ONDANSETRON HCL INJ 2 MG/ML VIAL ONE (15:20)
[2018-02-25] MEDS ORDERED: PROPOFOL IV EMULSION 10 MG/ML 20 ML VIAL ONE (15:20)
[2018-02-25] MEDS ORDERED: LIDOCAINE HCL 2% LOCAL INJ 5 ML SDV VIAL INJ ONE (15:20)
[2018-02-25] MEDS ORDERED: FINASTERIDE5 MG PO (15:37)
[2018-02-25] MEDS: FINASTERIDE 5 MG TAB PO SCH (15:52)
[2018-02-25] MEDS ORDERED: MIDAZOLAM HCL 2 MG/2 ML VIAL ONE (16:25)
[2018-02-25] MEDS ORDERED: FENTANYL CITRATE/PF 100MCG/2 ML INJ ONE (16:25)
[2018-02-25] MEDS ORDERED: MYRBETRIQ 50 MG PO SCH (21:00)
[2018-02-25] MEDS: FLUCONAZOLE 100 MG/NS 50 ML 50 ML IV SCH (21:11)
[2018-02-25] MEDS: SIMVASTATIN 20 MG TAB PO SCH (21:11)
[2018-02-26] VITALS (9 sets, daily range): BP systolic 119–137; BP diastolic 59–83
[2018-02-26] MEDS: LEVOTHYROXINE SODIUM 75 MCG TAB PO SCH (00:41)
[2018-02-26] MEDS: LIOTHYRONINE SODIUM 5 MCG TAB PO SCH (00:41)
[2018-02-26 08:25] LABS: ANION GAP 17.1 mmol/L (8-16); CALCIUM 9.5 mg/dL (8.4-10.2); CREATININE, SERUM 7.63 mg/dL (0.72-1.25); POTASSIUM 4.1 mmol/L (3.5-5.1)
--- NOTE | 2018-02-26 10:35 | Progress Note ---
DATE: SUBJECTIVE: Patient is here for nephrolithiasis, stents by Dr. Zendejas. Patient has ATN with creatinine, last of 8.46, seen by Dr. Waldron for that. Currently, no complaints except for aphthous ulcers in the oral cavity. No abdominal pain. 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 PHYSICAL EXAMINATION VITAL SIGNS: Temperature is 97.4, pulse of 87, blood pressure is 119/74, SpO2 of 95%. GENERAL: Alert and oriented x3, obese. LUNGS: Clear to auscultation bilaterally. NECK: No JVD present. CARDIOVASCULAR: S1, S2 normal. ABDOMEN: Nontender, nondistended. EXTREMITIES: Trace edema. MEDICATIONS: On fluconazole at this time. No other antibiotics. Blood pressure controlled with amlodipine and also anticoagulated with aspirin. Simvastatin on board. LAST LAB VALUES: BUN of 101, creatinine of 8.45, hemoglobin is 11.2, hematocrit of 34. No left shift present. ASSESSMENT 1. Status post revision of stents by Dr. Zendejas of her kidney stones. 2. Acute tubular necrosis, followed by Dr. Waldron. Continue with bicarb and also with fluid resuscitation. 3. Benign prostatic hypertrophy, on tamsulosin and finasteride. 4. History of small cell cancer. He is currently on Keytruda. Continue with this and simvastatin for his hyperlipidemia. 5. Labs to be followed today. We have not gotten a creatinine today. We will look into it and check his numbers today. 6. Further recommendations as per the clinical course. We will continue to monitor the patient and for further information, look in the chart. Job#: [id number] LPA
[2018-02-26] MEDS: ASPIRIN 81 MG CHEW TAB PO SCH (10:36)
[2018-02-26] MEDS: PHENAZOPYRIDINE HCL 100 MG TAB PO SCH ×3 (10:37→18:07)
[2018-02-26] MEDS: SENNOSIDES 8.6 MG TAB PO SCH (10:37)
[2018-02-26] MEDS: FINASTERIDE 5 MG TAB PO SCH (10:37)
[2018-02-26] MEDS: AMLODIPINE BESYLATE 10 MG TAB PO SCH (10:37)
[2018-02-26] MEDS: VALACYCLOVIR HCL 500 MG TAB PO SCH ×2 (10:37→18:07)
[2018-02-26] MEDS: TAMSULOSIN HCL 0.4 MG CAP PO SCH ×2 (11:08→18:38)
[2018-02-26] MEDS: SODIUM BICARBONATE 8.4% SYRING 150 ML in DEXTROSE 5% 1,000 ML IV SCH (13:31)
--- NOTE | 2018-02-26 16:10 | Progress Note ---
DATE: February 26, 2018 NEPHROLOGY PROGRESS NOTE SUBJECTIVE: Mr. Wolf feels well. He is urinating freely. His urine output has been increasing. Nephrology events noted. PHYSICAL EXAMINATION GENERAL: Alert, oriented adult male, in no acute distress. is at the bedside. VITAL SIGNS: Blood pressure 119/74, heart rate 87 per minute, afebrile. LUNGS: Bilaterally clear to auscultation. HEART: Normal heart sounds. No additional sounds. ABDOMEN: Soft, nontender. No organomegaly. EXTREMITIES: No cyanosis, clubbing, or edema. LABORATORY FINDINGS: Noted and reviewed. ASSESSMENT AND PLAN 1. Acute kidney injury on chronic kidney disease secondary to obstructive uropathy. BUN and creatinine are improving. His urine output is increasing. 2. Metabolic acidosis. Bicarbonate is improving. We will continue the sodium bicarbonate drip for now. 1. Hyperkalemia, corrected. 2. Disposition. We will follow this patient with you. I have evaluated the patient, discussed my evaluation, assessment and plan of care with the patient and his at the bedside in all details. All the questions were answered until he had none. Job#: [id number] DIRK
[2018-02-26] MEDS: FLUCONAZOLE 100 MG/NS 50 ML 50 ML IV SCH (21:00)
[2018-02-26] MEDS: MYRBETRIQ 50 MG PO SCH (21:00)
[2018-02-26] MEDS: SIMVASTATIN 20 MG TAB PO SCH (21:00)
[2018-02-27] VITALS (8 sets, daily range): BP systolic 109–137; BP diastolic 64–79
[2018-02-27] MEDS: LEVOTHYROXINE SODIUM 75 MCG TAB PO SCH (02:56)
[2018-02-27] MEDS: LIOTHYRONINE SODIUM 5 MCG TAB PO SCH (02:56)
[2018-02-27 06:20] LABS: BASOPHILS % 0.4 % (0.0-1.0); EOSINOPHILS # (AUTO) 0.3 (0.0-0.4); EOSINOPHILS % 2.7 % (0.0-6.0); HEMATOCRIT 35.5 % (38.2-49.6); HEMOGLOBIN 11.5 g/dL (14.0-18.0); LYMPHOCYTES # (AUTO) 0.5 (1.0-3.2); LYMPHOCYTES % 5.4 % (18.0-39.1); MEAN CORPUSCULAR HEMOGLOBIN 26.8 pg (28-32); MEAN CORPUSCULAR HGB CONC 32.4 g/dL (31-35); MEAN CORPUSCULAR VOLUME 82.8 fL (81-99); MONOCYTES # (AUTO) 0.9 (0.2-0.8); MONOCYTES % 9.1 % (4.4-11.3); NEUTROPHILS # (AUTO) 7.6 (2.1-6.9); NEUTROPHILS % 79.8 % (38.7-80.0); PLATELET COUNT 241 x10e3/uL (140-360); RED BLOOD COUNT 4.29 x10e6/uL (4.3-5.7); RED CELL DISTRIBUTION WIDTH 16.3 % (11.7-14.4)
[2018-02-27 06:37] LABS: ANION GAP 16.7 mmol/L (8-16); CALCIUM 9.4 mg/dL (8.4-10.2); CREATININE, SERUM 6.74 mg/dL (0.72-1.25); POTASSIUM 3.7 mmol/L (3.5-5.1)
--- NOTE | 2018-02-27 08:15 | Progress Note ---
DATE: SUBJECTIVE: Patient is here for nephrolithiasis, status post revision of stent, acute kidney injury, and metabolic acidosis. Patient alert and oriented x3. Complains of some aphthous ulcers, but are getting better. OBJECTIVE VITAL SIGNS: Temperature is 97.0, pulse 86, blood pressure is 119/73, and SpO2 of 97%. GENERAL: Patient is alert and oriented x3, obese. HEENT: Normocephalic, atraumatic. NECK: No JVD present. LUNGS: Clear to auscultation bilaterally. CARDIOVASCULAR: S1, S2 normal. ABDOMEN: Nontender, nondistended. EXTREMITIES: Trace edema present. LABORATORY DATA: BUN is improved to 6.74. Hemoglobin is stable at 11. ASSESSMENT 1. Status post revision of stent by Dr. Zendejas. 2. Acute kidney injury. Follow up with Dr. Waldron. 3. Metabolic acidosis. Bicarb has improved. 4. Benign prostatic hypertrophy. Continue on tamsulosin and finasteride. 5. History of small cell cancer. He is currently on Keytruda. We will continue with medication. Further recommendations as per clinical course. Patient is improving and will continue on his valacyclovir for his aphthous ulcer and currently on a renal diet. For further information, look into the chart. Job#: [id number] RONI
[2018-02-27] MEDS: AMLODIPINE BESYLATE 10 MG TAB PO SCH (08:55)
[2018-02-27] MEDS: FINASTERIDE 5 MG TAB PO SCH (08:55)
[2018-02-27] MEDS: VALACYCLOVIR HCL 500 MG TAB PO SCH ×2 (08:55→17:38)
[2018-02-27] MEDS: PHENAZOPYRIDINE HCL 100 MG TAB PO SCH ×3 (08:55→17:38)
[2018-02-27] MEDS: ASPIRIN 81 MG CHEW TAB PO SCH (08:55)
[2018-02-27] MEDS: SENNOSIDES 8.6 MG TAB PO SCH (08:55)
[2018-02-27] MEDS: TAMSULOSIN HCL 0.4 MG CAP PO SCH ×2 (09:55→18:27)
[2018-02-27 13:36] LABS: EOSINOPHILS % (MANUAL) 4 % (0-7); LYMPHOCYTES % (MANUAL) 8 % (19-48); MONOCYTES % (MANUAL) 9 % (3.4-9.0); NEUTROPHILS % (MANUAL) 79 % (40-74); PLATELET ESTIMATE ADEQUATE; PLATELET MORPHOLOGY COMMENT NORMAL; RBC MORPHOLOGY COMMENT NORMAL
[2018-02-27] MEDS: FLUCONAZOLE 100 MG/NS 50 ML 50 ML IV SCH (20:45)
[2018-02-27] MEDS: SIMVASTATIN 20 MG TAB PO SCH (20:45)
[2018-02-27] MEDS: MYRBETRIQ 50 MG PO SCH (20:45)
[2018-02-27] MEDS: SODIUM BICARBONATE 8.4% SYRING 150 ML in DEXTROSE 5% 1,000 ML IV SCH (20:51)
--- NOTE | 2018-02-27 23:36 | Operative Report ---
DATE OF PROCEDURE: February 25, 2018 PREOPERATIVE DIAGNOSES: 1. Bilateral ureteral strictures. 2. Bilateral hydronephrosis due to stricture. 3. Bilateral indwelling ureteral stents. POSTOPERATIVE DIAGNOSES: 1. Bilateral ureteral strictures. 2. Bilateral hydronephrosis due to stricture. 3. Bilateral indwelling ureteral stents. PROCEDURES PERFORMED: 1. Cystourethroscopy with complicated removal of bilateral double ureteral stents (separate procedure performed for the 4 stents present). 2. Bilateral cystourethroscopy with dilation of bilateral ureteral strictures (separate procedure performed for the diagnosis of strictures). 3. Urological services for supervision and interpretation for stricture dilation. 4. Cystourethroscopy with insertion of 4 ureteral stents, 2 stents on each side (separate procedures performed to relieve the hydronephrosis). 5. Interpretation of retrograde ureteropyelography. 6. Supervision of fluoroscopy. No radiologist present. ANESTHESIA: General. COMPLICATION: None. CLINICAL SUMMARY: Paulo Wolf is a 57-year-old man, who is extremely complicated. He has bilateral ureteral strictures. He has gone into renal failure when his stent seemed to be malfunctioning. Even though he is producing urine, his creatinine shot up to almost 10 from his baseline of around 3. He is brought for the above procedures to be performed on more urgent basis. He is aware of the risks of bleeding, infection, injury to adjacent structures, need for additional procedures and elected to proceed. OPERATIVE PROCEDURE IN DETAIL: Informed consent was verified. Paulo Wolf was properly identified, taken to the operating room and placed on the cystoscopy table in supine position. Anesthesia was uneventfully begun. The patient was then carefully and gently repositioned in the dorsal lithotomy position with all pressure points well padded. His genitalia were prepared and draped in the usual sterile fashion. The 22.5-Tongan cystourethroscope sheath with the visual obturator in place was atraumatically inserted into the patient's urethra and it was guided down the unremarkable urethra through the prostate bed which was significant for visually obstructing BPH with an significantly elevated median bar. The patient's bladder was entered and drained. Panendoscopy revealed 2 stents emerging from each ureteral orifice. The stents were not significantly encrusted with all. A guidewire was then placed into the right ureter and guided to the level of the patient's kidney. Both stents were then grasped completely and was then discarded. Double lumen ureteral catheter was then placed over the guidewire and guided to the level of the patient's renal pelvis. Contrast was injected. We utilized this double lumen catheter to dilate the ureteral strictures. This dilator received very minimal amount of resistance. The efflux obtained from the kidney was clear. Secondary guidewire was placed. With cystoscopic and fluoroscopic guidance, 2 separate indwelling ureteral stents were then placed. They were both coiled in the patient's kidney as well as the patient's bladder. The retaining sutures were removed. An identical set of procedures with identical results occurred then on the left hand side. On this side as well, the efflux was clear, coming out of the kidney upon placement of the double lumen ureteral catheter. Interpretation of retrograde ureteropyelography: Contrast was instilled in retrograde fashion bilaterally via the double lumen ureteral catheter. There were no tumors. There were no diverticula. There was chronic appearing hydronephrosis bilaterally. The stents were in good position, coiled in the patient's kidneys as well as the patient's bladder at the end of the case. The patient's bladder was drained. The cystoscope was withdrawn. A belladonna and opium suppository was placed revealing a 40 g prostate that is smooth, non-fluctuant without any nodules. The patient was then uneventfully reversed from anesthesia and taken to the recovery room in stable condition. There were no complications to the procedure. He tolerated the procedure well. We will proceed with routine postoperative care. We will of course monitor the patient's renal function along with the remaining physicians on the case, and hopefully his creatinine will return to baseline. Job#: [id number]
[2018-02-28 00:15] VITALS: BP 136/74
[2018-02-28] MEDS: SODIUM BICARBONATE 8.4% SYRING 150 ML in DEXTROSE 5% 1,000 ML IV SCH (01:53)
[2018-02-28] MEDS: LIOTHYRONINE SODIUM 5 MCG TAB PO SCH (02:17)
[2018-02-28] MEDS: LEVOTHYROXINE SODIUM 75 MCG TAB PO SCH (02:17)
[2018-02-28 04:10] VITALS: BP 122/70
[2018-02-28 06:31] LABS: BASOPHILS % 0.4 % (0.0-1.0); EOSINOPHILS # (AUTO) 0.4 (0.0-0.4); EOSINOPHILS % 4.5 % (0.0-6.0); HEMATOCRIT 36.9 % (38.2-49.6); HEMOGLOBIN 12.2 g/dL (14.0-18.0); LYMPHOCYTES # (AUTO) 0.4 (1.0-3.2); LYMPHOCYTES % 5.2 % (18.0-39.1); MEAN CORPUSCULAR HEMOGLOBIN 27.3 pg (28-32); MEAN CORPUSCULAR HGB CONC 33.1 g/dL (31-35); MEAN CORPUSCULAR VOLUME 82.6 fL (81-99); MONOCYTES # (AUTO) 0.9 (0.2-0.8); MONOCYTES % 10.8 % (4.4-11.3); NEUTROPHILS # (AUTO) 6.4 (2.1-6.9); NEUTROPHILS % 77.9 % (38.7-80.0); PLATELET COUNT 207 x10e3/uL (140-360); RED BLOOD COUNT 4.47 x10e6/uL (4.3-5.7); RED CELL DISTRIBUTION WIDTH 16.1 % (11.7-14.4)
[2018-02-28 06:48] LABS: ALBUMIN 3.3 g/dL (3.5-5.0); ALBUMIN/GLOBULIN RATIO 0.9 (0.8-2.0); ANION GAP 16.4 mmol/L (8-16); CALCIUM 9.5 mg/dL (8.4-10.2); CREATININE, SERUM 5.7 mg/dL (0.72-1.25); POTASSIUM 3.4 mmol/L (3.5-5.1)
[2018-02-28 08:00] VITALS: BP 138/69
[2018-02-28 08:34] VITALS: BP 138/69
[2018-02-28] MEDS: ASPIRIN 81 MG CHEW TAB PO SCH (08:54)
[2018-02-28] MEDS: TAMSULOSIN HCL 0.4 MG CAP PO SCH (08:54)
[2018-02-28] MEDS: AMLODIPINE BESYLATE 10 MG TAB PO SCH (08:55)
[2018-02-28] MEDS: PHENAZOPYRIDINE HCL 100 MG TAB PO SCH (08:55)
[2018-02-28] MEDS: SENNOSIDES 8.6 MG TAB PO SCH (08:55)
[2018-02-28] MEDS: FINASTERIDE 5 MG TAB PO SCH (08:55)
[2018-02-28] MEDS ORDERED: VALACYCLOVIR HCL 500 MG TAB PO SCH (09:00)
[2018-02-28] MEDS ORDERED: POTASSIUM CHLORIDE 20 MEQ TAB CR PO NR (11:45)
[2018-02-28 12:10] VITALS: BP 122/59
== END 2018-02-28 12:30 | disposition home or self-care (01) | DRG 660 ==
LOC: ER 13:09 → ERHOLD 14:21 → MED/SURG3 18:11
PROVIDERS: ADMIT Internal Medicine; ATTEND Internal Medicine
PROC: 0T788DZ Dilation of Bilateral Ureters with Intraluminal Device, Via Natural or Artificial Opening Endoscopic (ICD-10-PCS; 2018-02-25)
PROC: BT141ZZ Fluoroscopy of Kidneys, Ureters and Bladder using Low Osmolar Contrast (ICD-10-PCS; 2018-02-25)
PROC: 0TP98DZ Removal of Intraluminal Device from Ureter, Via Natural or Artificial Opening Endoscopic (ICD-10-PCS; principal; 2018-02-25 10:00)
DX: N13.1 Hydronephrosis with ureteral stricture, not elsewhere classified (principal); E87.2 Acidosis; N13.8 Other obstructive and reflux uropathy; C34.90 Malignant neoplasm of unspecified part of unspecified bronchus or lung; B37.49 Other urogenital candidiasis; N17.0 Acute kidney failure with tubular necrosis; N40.1 Benign prostatic hyperplasia with lower urinary tract symptoms; I12.9 Hypertensive chronic kidney disease with stage 1 through stage 4 chronic kidney disease, or unspecified chronic kidney disease; N18.4 Chronic kidney disease, stage 4 (severe); E03.9 Hypothyroidism, unspecified; E78.5 Hyperlipidemia, unspecified; E66.9 Obesity, unspecified; Z68.36 Body mass index [BMI] 36.0-36.9, adult; K12.0 Recurrent oral aphthae; D64.9 Anemia, unspecified; Z79.899 Other long term (current) drug therapy; Z79.82 Long term (current) use of aspirin; Z88.8 Allergy status to other drugs, medicaments and biological substances
CPT/HCPCS: 36415; 74176; 74420; 80048; 80053; 82550; 82553; 83735; 84484; 85025; 87086; 93005; 96361; 99284; C2617; J0696; J1100; J1200; J1450; J2001; J2250; J2405; J7070

== ENCOUNTER 2018-03-02 04:38 | Observation (INO) | payer BC ==
[~2018-03-02] VITALS: Ht 170.2 cm; Wt 109.9 kg
[~2018-03-02 04:38] MED LIST changes: +ACETAMINOPHEN325 M1 PO
--- NOTE | 2018-03-02 05:47 | Diagnostic Imaging Report ---
CHEST SINGLE (PORTABLE), 03/02/2018 4:58 AM Technique: CHEST SINGLE (PORTABLE) Comparison: None available. Clinical history: Cough, painful respiration Findings: Normal cardiac silhouette. Clips overlie the right mediastinum. Small right pleural effusion with associated atelectasis. No consolidation or edema. Impression: Small right pleural effusion. Signed by: Dr Althea Mcnamara MD on 03/02/2018 5:44 AM
[2018-03-02 05:54] LABS: BASOPHILS % 0.3 % (0.0-1.0); EOSINOPHILS # (AUTO) 0.6 (0.0-0.4); EOSINOPHILS % 4.4 % (0.0-6.0); HEMATOCRIT 39.9 % (38.2-49.6); HEMOGLOBIN 12.8 g/dL (14.0-18.0); LYMPHOCYTES # (AUTO) 0.7 (1.0-3.2); MEAN CORPUSCULAR HEMOGLOBIN 27.2 pg (28-32); MEAN CORPUSCULAR HGB CONC 32.1 g/dL (31-35); MEAN CORPUSCULAR VOLUME 84.9 fL (81-99); MONOCYTES # (AUTO) 1.4 (0.2-0.8); MONOCYTES % 10.1 % (4.4-11.3); NEUTROPHILS # (AUTO) 11.1 (2.1-6.9); NEUTROPHILS % 79.4 % (38.7-80.0); PLATELET COUNT 273 x10e3/uL (140-360); RED CELL DISTRIBUTION WIDTH 16.1 % (11.7-14.4)
[2018-03-02 06:20] LABS: ALANINE AMINOTRANSFERASE 13 IU/L (0-55); ALBUMIN 3.7 g/dL (3.5-5.0); ALBUMIN/GLOBULIN RATIO 0.9 (0.8-2.0); ALKALINE PHOSPHATASE 81 IU/L (40-150); ANION GAP 16.6 mmol/L (8-16); BLOOD UREA NITROGEN 58 mg/dL (7-26); BUN/CREATININE RATIO 11 (6-25); CALCIUM 10.1 mg/dL (8.4-10.2); CARBON DIOXIDE 23 mmol/L (22-29); CHLORIDE 103 mmol/L (98-107); CREATINE KINASE 26 IU/L (30-200); CREATININE, SERUM 5.16 mg/dL (0.72-1.25); EST GLOMERULAR FILTRATION RATE 12 ML/MIN (60-); GLUCOSE 120 mg/dL (74-118); POTASSIUM 3.6 mmol/L (3.5-5.1); SODIUM 139 mmol/L (136-145)
[2018-03-02 06:56] LABS: BILIRUBIN,URINE NEGATIVE (NEGATIVE); CLARITY,URINE HAZY (CLEAR); COLOR,URINE YELLOW (YELLOW); KETONES,URINE NEGATIVE (NEGATIVE); LEUKOCYTE ESTERASE ,URINE 1+ (NEGATIVE); NITRITE,URINE NEGATIVE (NEGATIVE); PROTEIN,URINE DIPSTICK NEGATIVE (NEGATIVE); URINE UROBILINOGEN 0.2 mg/dL (0.2 - 1)
[2018-03-02 07:16] LABS: BACTERIA,URINE MODERATE /HPF; EPITHELIAL CELLS,URINE MODERATE /LPF; RBC,URINE 0-5 /HPF (0-5)
[2018-03-02] MEDS ORDERED: ASPIRIN 81 MG ENTERIC COATED PO SCH (09:00)
--- NOTE | 2018-03-02 11:42 | Diagnostic Imaging Report ---
Ventilation/perfusion lung scan Clinical Information: 57 M with pleuritic chest pain. S/P RLL lobectomy in 2016 for lung cancer. Comparison: Chest radiograph 03/02/2018 Discussion: Xenon-133 gas 9.7 mCi was administered via inhalation. Dynamic images of the lungs in the posterior projection were obtained through single breath, equilibrium, and washout phases. The right lung volume is decreased. Distribution of tracer activity is minimally irregular throughout the lungs. There are no segmental ventilatory defects. Washout of tracer is diffusely delayed with no air trapping. Perfusion images of the lungs were obtained in multiple projections following intravenous administration of approximately 7 mCi of Tc-99m MAA. Again, the right lung volume is decreased. Distribution of tracer is minimally irregular throughout the lungs. The contours of the lungs are well demarcated. There are no segmental perfusion defects of any size. The perfusion images are well-matched to the ventilation images. The cardiomediastinal silhouette is unremarkable. Impression: Scan findings represent a VERY LOW probability for acute pulmonary embolic disease based on the PIOPED II criteria. Scan evidence of obstructive lung disease. Decreased right lung volume consistent with RLL lobectomy. Signed by: Dr. Merary Castillo M.D. on 03/02/2018 11:39 AM
[2018-03-02 12:28] VITALS: BP 128/72
[2018-03-02 13:30] LABS: CREATINE KINASE 26 IU/L (30-200)
[2018-03-02 15:03] VITALS: BP 128/72
[2018-03-02 16:00] VITALS: BP 113/70
[2018-03-02 16:32] VITALS: BP 113/70
[2018-03-02] MEDS ORDERED: VALACYCLOVIR HCL 500 MG TAB PO SCH ×2 (17:00→21:00)
--- NOTE | 2018-03-02 17:34 | Consultation ---
DATE OF CONSULTATION: CARDIOLOGY CONSULTATION REASON FOR ADMISSION: Chest pain. HISTORY OF PRESENT ILLNESS: This is a 57-year-old man with a history of chronic kidney disease with bilateral hydronephrosis, status post ureteral stent, prior history of lung cancer, status post lobectomy, chemotherapy, and currently on immunotherapy, oropharyngeal herpes simplex virus, who presented to the emergency department with chest pain. The patient states for the last 24-48 hours, he developed atypical sharp moderate intensity central chest pain, worse with deep inspiration and lying supine, improved with leaning forward. No exertional symptoms. Patient states that he had prior stress test, which was within normal limits. Upon arrival here, the patient was noted to be hemodynamically stable with elevated heart rates and negative cardiac enzymes x1. REVIEW OF SYSTEMS: A 12-point review of systems was conducted, is otherwise above in HPI. PAST MEDICAL HISTORY: Hypertension, lung cancer, hydronephrosis, chronic kidney disease. PAST SURGICAL HISTORY: Ureteral stent. FAMILY HISTORY: No premature coronary artery disease or sudden cardiac . SOCIAL HISTORY: No illicit drug use, alcohol use or tobacco use. ALLERGIES: PHENERGAN. MEDICATIONS: See medication reconciliation form. PHYSICAL EXAMINATION VITALS: Temperature is 98.3, heart rate is 108, respirations are 19, blood pressure is 128/72, oxygen saturation 98% on room air. GENERAL: He is a well-appearing obese man, lying comfortably in bed. HEENT: Head is normocephalic, atraumatic. Eyes, anicteric, the extraocular muscles are intact. Conjunctivae are clear. NECK: No JVD, no bruits. CARDIOVASCULAR: Regular rate and rhythm. No murmurs, rubs or gallops. LUNGS: Clear to auscultation. ABDOMEN: Soft, nontender. EXTREMITIES: No edema. VASCULAR: 2+ pulses. SKIN: Warm, dry, intact. NEUROLOGIC: No focal deficits noted. LABORATORY DATA: Reviewed. Notable for white blood cell count of 13.3, hemoglobin of 12.8, creatinine of 5.16, troponin is less than 0.001 times 2 sets. IMAGING DATA 1. Chest x-ray shows a small right pleural effusion. 2. V/Q scan shows a very low probability for pulmonary embolism. 3. A 2-E echocardiogram showed normal left ventricular size and function with an estimated ejection fraction of 55%-60% with a small pericardial effusion without any echocardiographic evidence of tamponade. IMPRESSIONS 1. Precordial pain likely secondary to pericarditis or pleuritic etiology. 2. Chronic kidney disease. 3. Hypertension. 4. Lung cancer, status post lobectomy and chemotherapy. RECOMMENDATIONS: Patient's presenting symptoms are fairly classic for pericardial pain. he has a small pericardial effusion without tamponade. Unfortunately, patient cannot take any nonsteroidal therapies or steroids due to his prior cancer and immunotherapy. Possibly can consider colchicine; however, his creatinine is 5.16 and severe adverse affects can be encountered with this lack of renal clearance. Continue to monitor the patient clinically. His troponins are within normal limits and his echocardiogram showed normal left ventricular size and function. There is no evidence of acute coronary syndrome. Will continue to follow along with you. Thank you for the consultation. Job#: [id number] CQ
[2018-03-02] MEDS ORDERED: ACETAMINOPHEN 325 MG TAB PO PRN ×2 (17:45→18:00)
[2018-03-02] MEDS: TAMSULOSIN HCL 0.4 MG CAP PO SCH (18:00)
[2018-03-02] MEDS ORDERED: SENNOSIDES 8.6 MG TAB PO SCH (18:00)
[2018-03-02] MEDS: FINASTERIDE 5 MG TAB PO SCH (18:00)
[2018-03-02] MEDS: AMLODIPINE BESYLATE 10 MG TAB PO SCH (18:00)
[2018-03-02] MEDS ORDERED: ACETAMINOPHEN 325 MG TAB PO SCH (18:00)
[2018-03-02] MEDS: ASPIRIN 81 MG CHEW TAB PO SCH (18:00)
[2018-03-02 20:38] VITALS: BP 116/71
[2018-03-02] MEDS ORDERED: PRAVASTATIN 20 MG TAB PO SCH (21:00)
[2018-03-02 21:46] VITALS: BP 116/71
[2018-03-03] MEDS ORDERED: LIOTHYRONINE SODIUM 5 MCG TAB PO SCH ×2 (02:00→07:30)
[2018-03-03] MEDS ORDERED: LEVOTHYROXINE SODIUM 75 MCG TAB PO SCH ×2 (02:00→06:00)
[2018-03-03] MEDS ORDERED: VALACYCLOVIR HCL 500 MG TAB PO SCH (03:00)
[2018-03-03 05:27] LABS: BASOPHILS # (AUTO) 0.1 (0.0-0.1); BASOPHILS % 0.4 % (0.0-1.0); EOSINOPHILS # (AUTO) 0.9 (0.0-0.4); EOSINOPHILS % 7.3 % (0.0-6.0); HEMOGLOBIN 12.2 g/dL (14.0-18.0); LYMPHOCYTES # (AUTO) 0.7 (1.0-3.2); LYMPHOCYTES % 5.5 % (18.0-39.1); MEAN CORPUSCULAR HEMOGLOBIN 27.1 pg (28-32); MEAN CORPUSCULAR HGB CONC 32.1 g/dL (31-35); MEAN CORPUSCULAR VOLUME 84.3 fL (81-99); MONOCYTES # (AUTO) 1.2 (0.2-0.8); MONOCYTES % 9.4 % (4.4-11.3); NEUTROPHILS # (AUTO) 9.8 (2.1-6.9); NEUTROPHILS % 76.6 % (38.7-80.0); PLATELET COUNT 250 x10e3/uL (140-360); RED BLOOD COUNT 4.51 x10e6/uL (4.3-5.7); RED CELL DISTRIBUTION WIDTH 16.2 % (11.7-14.4)
[2018-03-03 05:54] VITALS: BP 109/60
[2018-03-03 05:55] LABS: ALBUMIN 3.2 g/dL (3.5-5.0); ALBUMIN/GLOBULIN RATIO 0.8 (0.8-2.0); ANION GAP 16.8 mmol/L (8-16); CALCIUM 9.9 mg/dL (8.4-10.2); CREATININE, SERUM 4.99 mg/dL (0.72-1.25); POTASSIUM 3.8 mmol/L (3.5-5.1)
[2018-03-03 07:02] LABS: CREATINE KINASE 18 IU/L (30-200)
[2018-03-03 07:05] VITALS: BP 113/61
[2018-03-03 07:07] VITALS: BP 109/60
[2018-03-03] MEDS: ASPIRIN 81 MG CHEW TAB PO SCH (08:23)
[2018-03-03] MEDS: TAMSULOSIN HCL 0.4 MG CAP PO SCH (08:23)
[2018-03-03] MEDS: AMLODIPINE BESYLATE 10 MG TAB PO SCH (08:23)
[2018-03-03] MEDS: FINASTERIDE 5 MG TAB PO SCH (08:24)
[2018-03-03] MEDS ORDERED: (Mirabegron (Myrbetriq) 50 MG) PO SCH (09:00)
[2018-03-03] MEDS ORDERED: NON-FORMULARY MEDICATION (Pravastatin Sodium 40 MG) PO SCH (09:00)
[2018-03-03] MEDS ORDERED: LEVOTHYROXINE SODIUM 88 MCG TAB PO SCH (09:00)
[2018-03-03] MEDS ORDERED: TAMSULOSIN HCL 0.4 MG CAP PO SCH (09:00)
[2018-03-03] MEDS ORDERED: SENNOSIDES 8.6 MG TAB PO SCH ×2 (09:00)
== END 2018-03-03 09:10 | disposition home or self-care (01) ==
LOC: ER 04:38 → ERHOLD 07:01 → INTOOBSV 07:01 → MED/SURG2 12:14
PROVIDERS: ADMIT Internal Medicine; ATTEND Internal Medicine
DX: R07.2 Precordial pain (principal); N17.9 Acute kidney failure, unspecified; I12.0 Hypertensive chronic kidney disease with stage 5 chronic kidney disease or end stage renal disease; N18.5 Chronic kidney disease, stage 5; N39.0 Urinary tract infection, site not specified; R31.29 Other microscopic hematuria; N13.30 Unspecified hydronephrosis; Z96.0 Presence of urogenital implants; I31.3 Pericardial effusion (noninflammatory); J90 Pleural effusion, not elsewhere classified; D72.829 Elevated white blood cell count, unspecified; D64.9 Anemia, unspecified; E78.5 Hyperlipidemia, unspecified; E03.9 Hypothyroidism, unspecified; N40.0 Benign prostatic hyperplasia without lower urinary tract symptoms; B00.2 Herpesviral gingivostomatitis and pharyngotonsillitis; E66.9 Obesity, unspecified; Z68.37 Body mass index [BMI] 37.0-37.9, adult; Z85.118 Personal history of other malignant neoplasm of bronchus and lung; Z90.2 Acquired absence of lung [part of]; Z92.21 Personal history of antineoplastic chemotherapy; Z79.899 Other long term (current) drug therapy; Z79.82 Long term (current) use of aspirin; Z88.1 Allergy status to other antibiotic agents; Z88.8 Allergy status to other drugs, medicaments and biological substances
CPT/HCPCS: 36415 ×2; 71045; 78582; 80053 ×2; 80061; 81001; 82550 ×2; 82553 ×2; 84484 ×2; 85025 ×2; 85379; 87086; 87186; 93005; 93306; 99284; A9540; A9558; G0378 ×2

== ENCOUNTER → 2018-03-25 | Outpatient (CLI) | payer BC | LOC: RAD 14:14 | PROVIDERS: ATTEND Internal Medicine | DX: I10 Essential (primary) hypertension (principal); I40.8 Other acute myocarditis | CPT/HCPCS: 93306 ==

== ENCOUNTER → 2018-03-28 | Outpatient (CLI) | payer BC ==
[~2018-03-28] MED LIST changes: +LEVAQUIN500 MG PO; +VALACYCLOVIR PO
--- NOTE | 2018-03-28 14:55 | Diagnostic Imaging Report ---
Renal Scan Reason for exam: 57 M with chronic kidney disease. History of bilateral renal calculi, Ureteric stents are replaced every 2 months. Comparison: Prior renal scan 05/04/2017 Radiopharmaceutical: Tc-99m MAG3 10.8 mCi Report: After administration of the radiopharmaceutical, dynamic images of the kidneys were obtained through 40 minutes. LEFT KIDNEY: Perfusion is barely perceptible. The left kidney is very small with a C-shape due to thinning of the renal cortex. Extraction of tracer from the blood pool is markedly decreased. There is some but minimal clearance of tracer from the renal parenchyma. The pelvicaliceal system does not appear dilated but cannot be reliably assessed due to the extremely poor function of the kidney. There is no significant increase in pooling of tracer within the pelvicaliceal system. Drainage of tracer from the pelvicaliceal system cannot be assessed. No stasis of tracer is seen in the left ureter. RIGHT KIDNEY: Perfusion is mildly delayed. The kidney has reniform shape with moderate thinning of the renal cortex. . Extraction of tracer from the blood pool is markedly decreased. . Clearance of tracer from the renal parenchyma is prolonged. The pelvicaliceal system is mildly dilated, predominantly the calices. Increase in pooling of tracer is seen within the pelvicaliceal system. No net drainage of tracer from the pelvicaliceal study is seen. No stasis of tracer is seen in the right ureter. DIFFERENTIAL RENAL FUNCTION: Left kidney 19% and right kidney 81% (normal 43-57%). Impression: 1. Medical renal disease is present in the left kidney. The kidney is reduced to a small size compared to the left kidney and this accounts of the decreased differential function of 19%. The function is too impaired to assess for hydronephrosis or obstruction. Compared to the prior study of 05/04/2017, there is better tubular function in the kidney today allowing some tracer to appear in the pelvicalyceal system. The appearance of the kidney is otherwise unchanged. 2. Medical renal disease is present in the right kidney. There is also significant loss of renal parenchyma due to scarring and thinning of the renal cortex. Moderate hydronephrosis is present. Obstruction at the UPJ is suspected but not adequately assessed without a Lasix washout. Compared ot the prior study of 05/04/2017, some interval loss of renal parenchyma is present evidenced by the more thinned appearance of the renal cortex. The drainage pattern is unchanged. 3. The differential function of 19% in the left kidney is in comparison to a significantly impaired right kidney. Signed by: Dr. Merary Castillo M.D. on 03/28/2018 2:51 PM
== END ==
LOC: NM 10:41
PROVIDERS: ATTEND Urology
DX: R80.9 Proteinuria, unspecified (principal); N18.9 Chronic kidney disease, unspecified
CPT/HCPCS: 78707; A9562

== ENCOUNTER → 2018-04-08 | Day surgery (SDC) | payer BC ==
[~2018-04-08] MED LIST changes: +BELLADONNA/OPIUM 30 MG SUPP RC ONE; +DEXAMETHASONE SOD PHOS INJ 4 MG/ML VIAL ONE; +FENTANYL CITRATE/PF 100MCG/2 ML INJ ONE; +FLUCONAZOLE 200 MG/100 ML 100 ML IV ONE; +IOPAMIDOL 610MG/1ML 300 MG/ML VIAL IV ONE; +LEVOFLOXACIN 250MG/D5W 50ML 50 ML ONE; +LIDOCAINE HCL 2% LOCAL INJ 5 ML SDV VIAL INJ ONE; +MIDAZOLAM HCL 2 MG/2 ML VIAL ONE; +ONDANSETRON HCL INJ 2MG/ML 2ML 2 MG/ML VIAL ONE; +PROPOFOL IV EMULSION 10 MG/ML 20 ML VIAL ONE; +SEVOFLURANE INHAL SOLN 250 ML PEN BTL ONE
[2018-04-08 18:55] VITALS: BP 151/86
--- NOTE | 2018-05-23 09:02 | Operative Report ---
DATE OF PROCEDURE: 04/08/2018 SURGEON: Jorge Zendejas MD PREOPERATIVE DIAGNOSES: 1. Bilateral ureteral strictures. 2. Bilateral hydronephrosis due to strictures. 3. Bilateral double ureteral stents. POSTOPERATIVE DIAGNOSES: 1. Bilateral ureteral strictures. 2. Bilateral hydronephrosis due to strictures. 3. Bilateral double ureteral stents. OPERATIONS PERFORMED: 1. Cystourethroscopy with complicated removal of bilateral indwelling ureteral stent (performed for the diagnosis of the stents). 2. Cystourethroscopy with bilateral dilation of ureteral strictures (surgery performed for the diagnosis of the strictures). 3. Urological Services for supervision and interpretation of stricture dilation. 4. Cystourethroscopy with insertion of 4 total stents, 2 on each side (surgery performed to relieve the hydronephrosis). 5. Interpretation of retrograde urethrography. 6. Supervision of fluoroscopy, no radiologist was present. ANESTHESIA: General. COMPLICATIONS: None. CLINICAL SUMMARY: Paulo Wolf is a complex [id number] with extensive hospital records, please refer to them. He was brought for the above procedures. He was aware of the risks of bleeding, infection, injury to the adjacent structures, and need for future procedures, and elected to proceed. PROCEDURE IN DETAIL: Informed consent was verified. Paulo Wolf was properly identified, taken to the operating room, and placed on the cystoscopy table in the supine position. Anesthesia was uneventfully begun. The patient was then carefully and gently repositioned in the dorsal lithotomy position with all pressure points well padded. His genitalia were prepped and draped in the usual sterile fashion. A 22.5-Syrian cystoscope sheath with the visual obturator in place, was atraumatically inserted into the patient's urethra. It was guided unremarkably into the urethra through the normal sphincteric region through the prostate measured significant for visually obstructing BPH with kissing lateral lobes and into the patient's bladder, where we identified stents emerging from both the urethral orifices. The stent was pulled out of the right ureteral orifice and got out to the urethral meatus. A guidewire was then placed through the stent. The secondary stent was then grasped. Both stents were then removed on the right hand side. Coaxial dilator sheath that was utilized was a dual-lumen catheter. The dual-lumen ureteral catheter was then placed over the guidewire and guided to the level of the patient's renal pelvis. Clear fluid was obtained from the kidney. This dilation was carried out with fluoroscopic guidance, contrast was injected. Secondary guidewire was left in place. With cystoscopic and fluoroscopic guidance, two separate indwelling ureteral stents were placed in the right hand side, coiled the patient's kidneys as well as the patient's bladder, retaining sutures were removed. An identical procedure with identical findings was performed on the left hand side. The patient's bladder was then drained. The cystoscope was withdrawn. Interpretation of Retrograde Ureteropyelography: Contrast was instilled in a retrograde fashion bilaterally. There was bilateral chronic hydronephrosis. All four stents were present in the appropriate position with coils in the patient's kidneys as well as the patient's bladder. The patient was then uneventfully reversed from anesthesia and taken to the recovery room in stable condition. There were no complications from the procedure. He tolerated the procedure well. Plans will be to perform a similar procedure again within one and half to two months. Jorge Zendejas MD [facility]/MOD[facility] /[id number] cc: Robi Card MD
== END | disposition home or self-care (01) ==
LOC: OR 12:25
PROVIDERS: ATTEND Urology
DX: N13.1 Hydronephrosis with ureteral stricture, not elsewhere classified (principal); N17.9 Acute kidney failure, unspecified; Z46.6 Encounter for fitting and adjustment of urinary device; I12.9 Hypertensive chronic kidney disease with stage 1 through stage 4 chronic kidney disease, or unspecified chronic kidney disease; N18.9 Chronic kidney disease, unspecified; N40.1 Benign prostatic hyperplasia with lower urinary tract symptoms; N13.8 Other obstructive and reflux uropathy; R35.1 Nocturia; N39.0 Urinary tract infection, site not specified; R97.20 Elevated prostate specific antigen [PSA]; E29.1 Testicular hypofunction; R80.9 Proteinuria, unspecified; C34.91 Malignant neoplasm of unspecified part of right bronchus or lung; C79.9 Secondary malignant neoplasm of unspecified site; J40 Bronchitis, not specified as acute or chronic; E66.9 Obesity, unspecified; Z88.1 Allergy status to other antibiotic agents; Z88.8 Allergy status to other drugs, medicaments and biological substances; Z01.810 Encounter for preprocedural cardiovascular examination; Z79.82 Long term (current) use of aspirin; Z68.39 Body mass index [BMI] 39.0-39.9, adult; Z87.442 Personal history of urinary calculi
CPT/HCPCS: 52332; 52341; 74420; 93005; C1766; C2617; J1100; J1450; J1956; J2001; J2250; J2405; J2704; Q9967

== ENCOUNTER → 2018-06-10 | Day surgery (SDC) | payer BC ==
[~2018-06-10] MED LIST changes: +B COMPLEX1 EACH; +LORATADINE10 MG PO
[2018-06-10 11:05] VITALS: BP 136/81
--- NOTE | 2018-07-27 05:32 | Operative Report ---
DATE OF PROCEDURE: 06/10/2018 SURGEON: Jorge Zendejas MD PREOPERATIVE DIAGNOSES: 1. Bilateral ureteral strictures. 2. Bilateral hydronephrosis due to stricture. 3. Bilateral double indwelling ureteral stents for total of four stents between the two ureters. POSTOPERATIVE DIAGNOSES: 1. Bilateral ureteral strictures. 2. Bilateral hydronephrosis due to stricture. 3. Bilateral double indwelling ureteral stents for total of four stents between the two ureters. OPERATION PERFORMED: 1. Cystourethroscopy with for the diagnosis of the bilateral double stents. 2. Cystourethroscopy with bilateral ureteral stricture dilation (separate procedure performed for the diagnosis of the strictures.). 3. Radiological services with supervision and interpretation with stricture dilation. 4. Cystourethroscopy with insertion of four separate indwelling ureteral stents, two on each side (separate procedure performed to relieve the hydronephrosis). 5. Interpretation of retrograde ureteropyelography. 6. Supervision of fluoroscopy, no radiologist present. ANESTHESIA: General. COMPLICATIONS: None. CLINICAL SUMMARY: Paulo Wolf is a very complicated 57-year-old man with significant renal insufficiency. The patient is chronically ill and is getting ongoing treatment and chemotherapy for his lung cancer that is metastatic. The patient has also had urinary tract infections and most notably recurrent urinary candidal infections which cause obstruction of the stents on a regular basis. We have subsequently progressively decreased the interval between stent changes and ureteral stricture dilation. The patient has had no elevation of creatinine beyond his already elevated baseline. He was brought to the operating room to perform the usual procedure. He is aware of the risks of bleeding, infection, injury to adjacent structures, need for further procedures, and the fact that he will have a temporary indwelling ureteral stents or require followup and removal or exchange. He understood these risks and wanted to proceed. OPERATIVE PROCEDURE IN DETAIL: Informed consent verified. Paulo Wolf was properly identified, taken to the operating room, placed on the cystoscopy table in supine position. Anesthesia was uneventfully begun. The patient was then carefully and gently repositioned in a dorsal lithotomy position with all pressure points were padded. His genitalia were prepared and draped in the usual sterile fashion. The cystoscope sheath with the visual obturator in place was atraumatically inserted into the patient's urethra, was guided down the urethra and through the normal sphincteric region and through the prostate bed which exhibited visually obstructing BPH and into the patient's bladder. The patient's bladder capacity was small. Panendoscopy revealed stent emerging from both ureteral orifices. There was no significant encrustation on the stents, but there were very fine fibrous like material on the stents consistent with candidal infection. The guide was then placed into the right ureter kidney. The stents were then grasped, completely removed and discarded. Double-lumen ureteral catheter was then placed over the guidewire and brought to the level of the patient's kidney and performing a dilation utilizing the double-lumen ureteral catheter as a coaxial dilator sheath. Once this was performed, contrast was injected and secondary guidewire was placed. With cystoscopic and fluoroscopic guidance, two separate indwelling ureteral stents were then placed to coil the patient's right kidney as well as the patient's bladder. The retaining sutures were removed. An identical procedure was performed on the left hand side. It should be noted that the patient's ureteral strictures do not seem as dense as they used to be in the past. Interpretation of retrograde ureteropyelography: Contrast was instilled in retrograde fashion bilaterally. There was fullness of both upper collecting systems. The hydronephrosis was fairly significant bilaterally. The stents were in good position, coiled the patient's kidneys as well as the patient's bladder at the end of the case. The patient's bladder was drained and the cystoscope was withdrawn. Belladonna and opium suppository was placed. The patient was uneventfully reversed from anesthesia and taken to the recovery room in stable condition. Explicit postop instructions were given. We will follow the patient up in the office and we will plan to change the stents in a couple of months. Jorge MD [facility]/MODL /[id number] cc: Robi Card MD
== END | disposition home or self-care (01) ==
LOC: OR 06:52
PROVIDERS: ATTEND Urology
DX: N13.1 Hydronephrosis with ureteral stricture, not elsewhere classified (principal); N17.9 Acute kidney failure, unspecified; I12.9 Hypertensive chronic kidney disease with stage 1 through stage 4 chronic kidney disease, or unspecified chronic kidney disease; N18.9 Chronic kidney disease, unspecified; N40.1 Benign prostatic hyperplasia with lower urinary tract symptoms; N13.8 Other obstructive and reflux uropathy; C34.90 Malignant neoplasm of unspecified part of unspecified bronchus or lung; C79.9 Secondary malignant neoplasm of unspecified site; E03.9 Hypothyroidism, unspecified; Z88.1 Allergy status to other antibiotic agents; Z88.8 Allergy status to other drugs, medicaments and biological substances; Z46.6 Encounter for fitting and adjustment of urinary device; Z79.899 Other long term (current) drug therapy; Z79.82 Long term (current) use of aspirin; Z87.440 Personal history of urinary (tract) infections
CPT/HCPCS: 52332; 52341; 74420; 87086; C1758; C2617; J1100; J1450; J1956; J2001; J2250; J2405; J2704; Q9967

== ENCOUNTER → 2018-07-29 | Day surgery (SDC) | payer BC ==
[~2018-07-29] MED LIST changes: -DEXAMETHASONE SOD PHOS INJ 4 MG/ML VIAL ONE; -FENTANYL CITRATE/PF 100MCG/2 ML INJ ONE; +LEVOFLOXACIN 250MG/D5W 50ML 0 ML ONE; -LEVOFLOXACIN 250MG/D5W 50ML 50 ML ONE; +LEVOFLOXACIN 500MG/D5W 100ML 100 ML IV ONE; -ONDANSETRON HCL INJ 2MG/ML 2ML 2 MG/ML VIAL ONE; +PROCARDIA XL30 MG PO
[2018-07-29 12:20] VITALS: BP 141/84
--- NOTE | 2018-08-10 06:06 | Operative Report ---
DATE OF PROCEDURE: 07/29/2018 SURGEON: Jorge Zendejas MD PREOPERATIVE DIAGNOSES: 1. Bilateral indwelling ureteral stents. 2. Bilateral ureteral strictures. 3. Bilateral hydronephrosis due to stricture. POSTOPERATIVE DIAGNOSES: 1. Bilateral indwelling ureteral stents. 2. Bilateral ureteral strictures. 3. Bilateral hydronephrosis due to stricture. OPERATION PERFORMED: 1. Cystourethroscopy with complicated removal of bilateral double stents (separate procedure performed for the diagnosis of stents). 2. Cystourethroscopy with bilateral ureteral stricture dilation (separate procedure performed for the strictures). 3. Urological Services with supervision and interpretation of stricture dilation. 4. Cystourethroscopy with insertion of a total of four stents, two on each side (separate procedure performed to relieve the hydronephrosis). 5. Interpretation of retrograde ureteropyelography. 6. Supervision of fluoroscopy, no radiologist present. ANESTHESIA: General. COMPLICATIONS: None. CLINICAL SUMMARY: Paulo Wolf is an extremely complicated 57-year-old man with bilateral hydronephrosis, bilateral strictures, bilateral renal failure with recurrent candiduria that plugs up his stents. The patient has acute on chronic renal failure and is brought for the above procedures. He is aware of the risks of bleeding, infection, injury to adjacent structures, need for additional procedures and elected to proceed. OPERATIVE PROCEDURE IN DETAIL: Informed function was verified. Paulo Wolf was properly identified, taken to the operating room, placed on the cystoscopy table. Anesthesia was uneventfully begun. He was carefully and gently repositioned in dorsal lithotomy position with all pressure points were well padded. His genitalia were prepared and draped in usual sterile fashion. A 22.5-Mongolian cystoscope sheath with the visual obturator in place was atraumatically inserted into the patient's urethra and was guided down to remarkable distal urethra through some nonsignificant stricturing at the bulbar region through the prostate bed, which was significant for bilobar prostatic hypertrophy with obstructive BPH. We entered the patient's bladder. We identified that the stents were all surrounded with fibrous like debris consistent with candiduria. Double stents were emerging from each ureteral orifice. A guidewire was then placed into the right ureter and guided to the level of the patient's kidney. The two right ureteral stents were removed and discarded. A double-lumen ureteral catheter was then utilized as a coaxial dilator sheath was brought up over the guidewire to the level of the patient's right kidney. A relatively clear hydronephrotic drip was obtained. Contrast was injected. Secondary guidewire was then placed. With cystoscope and fluoroscopic guidance, two stents were placed over the two guidewires into the right kidney, coiled in the kidney as well as the patient's bladder. The retaining sutures were removed. An identical procedure was performed on the left hand side with identical results. Interpretation of retrograde ureteropyelography: Contrast was instilled in retrograde fashion bilaterally. There was severe hydronephrosis present bilaterally. The stents were in good position, coiled the patient's kidneys as well as the patient's bladder at the end of the case. The patient's bladder was drained. Cystoscope was withdrawn. Belladonna and opium suppository were placed revealing a large prostate, smooth and non-fluctuant without any nodules. The patient was then uneventfully reversed from anesthesia and taken to the recovery room in stable condition. There were no complications to the procedure. He tolerated the well. Explicit postop instructions were given. We will follow the patient up by returning him to the operating room in approximately 1 month to perform the same procedure. Jorge Zendejas MD [facility]/MODL /[id number] cc: Robi Card MD
== END | disposition home or self-care (01) ==
LOC: OR 08:47
PROVIDERS: ATTEND Urology
DX: N13.1 Hydronephrosis with ureteral stricture, not elsewhere classified (principal); N17.9 Acute kidney failure, unspecified; Z46.6 Encounter for fitting and adjustment of urinary device; N40.1 Benign prostatic hyperplasia with lower urinary tract symptoms; N13.8 Other obstructive and reflux uropathy; I12.9 Hypertensive chronic kidney disease with stage 1 through stage 4 chronic kidney disease, or unspecified chronic kidney disease; N18.4 Chronic kidney disease, stage 4 (severe); B37.49 Other urogenital candidiasis; R97.20 Elevated prostate specific antigen [PSA]; E29.1 Testicular hypofunction; R80.9 Proteinuria, unspecified; R05 Cough; E03.9 Hypothyroidism, unspecified; E66.9 Obesity, unspecified; Z88.1 Allergy status to other antibiotic agents; Z88.8 Allergy status to other drugs, medicaments and biological substances; Z01.810 Encounter for preprocedural cardiovascular examination; Z01.812 Encounter for preprocedural laboratory examination; Z79.82 Long term (current) use of aspirin; Z68.37 Body mass index [BMI] 37.0-37.9, adult; Z87.442 Personal history of urinary calculi; Z85.118 Personal history of other malignant neoplasm of bronchus and lung
CPT/HCPCS: 36415; 52332; 52341; 74420; 83735; 93005 ×2; C2617; J1450; J1956; J2001; J2250; J2704; Q9967

== ENCOUNTER → 2018-08-29 | Day surgery (SDC) | payer BC ==
[~2018-08-29] MED LIST changes: +ACETAMINOPHEN650 MG PO; +ALOXI0.25 MG/5 IV; +B&O 60MG R/S 60 MG SUPP PR ONE; -BELLADONNA/OPIUM 30 MG SUPP RC ONE; +BENADRYL25 M1 IV; +CARBOPLATIN150 MG IV; +CLOBETASOL TOP; +DEXAMETHASONE SOD PHOS INJ 4 MG/ML VIAL ONE; +DEXAMETHASONE4 MG IV; +EMEND150 MG IV; +FENTANYL CITRATE/PF 100MCG/2 ML INJ ONE; -FLUCONAZOLE 200 MG/100 ML 100 ML IV ONE; -LEVOFLOXACIN 250MG/D5W 50ML 0 ML ONE; +LEVOFLOXACIN 250MG/D5W 50ML 50 ML ONE; -LEVOFLOXACIN 500MG/D5W 100ML 100 ML IV ONE; +NEULASTA6 MG/0.6 M SQ; +ONDANSETRON HCL INJ 2MG/ML 2ML 2 MG/ML VIAL ONE; +PACLITAXEL6 MG/1 ML IV; +PEPCID20 MG IV; +PREDNISONE10 MG PO; +TRIAMCINOLONE A15 G1 TOP; +TRIAMCINOLONE TOP; +VIT D PO; +ZOFRAN8 MG PO; +penicillin PO
--- OUTSIDE RECORDS SUMMARY | 2018-08-29 05:13 | XMS REPORT | Clinical Summary ---
Author Author JEFF [facility] Organization [facility] Address Unknown Phone Unavailable Care Team Providers Care Sawmilling Operator Name Role Phone Robi Card PCP Allergies Comments Active Allergy Reactions Severity Noted Date Makes Nausea WORSE Promethazine 07/21/2016 Medications End Date Status Medication Sig Dispensed Refills Start Date Active aspirin 81 MG chewable Take 81 mg by 0 tablet mouth daily. Active senna (SENOKOT) 8.6 mg Take 1 tablet 0 tablet by mouth daily. Active DABRAFENIB MESYLATE Take by 0 (TAFINLAR ORAL) mouth. Active pravastatin (PRAVACHOL) Take 40 mg by 0 40 MG tablet mouth daily. Active levothyroxine (SYNTHROID, Take 75 mcg 0 LEVOTHROID) 75 MCG tablet by mouth daily. Active liothyronine (CYTOMEL) 5 Take 5 mcg by 4 MCG tablet mouth Every 8 morning on an empty stomach. Active MYRBETRIQ 50 mg Tb24 ER Take 50 mg by 1 tablet mouth daily. 8 Active tamsulosin (FLOMAX) 0.4 Take 0.4 mg 3 mg Cp24 24 hr capsule by mouth 2 8 (two) times daily. Active finasteride (PROSCAR) 5 Take 5 mg by 3 mg tablet mouth daily. 8 Active pembrolizumab (KEYTRUDA Inject 0 IV) intravenously once every 3 weeks. 10/07/2017 Discontinued losartan-hydroCHLOROthiaz Take 1 tablet 0 heide (HYZAAR) 50-12.5 mg by mouth per tablet daily. 10/07/2017 Discontinued amLODIPine (NORVASC) 10 Take 10 mg by 0 MG tablet mouth daily. 10/07/2017 Discontinued metFORMIN (GLUCOPHAGE) Take 500 mg 0 500 MG tablet by mouth 2 (two) times daily with breakfast and dinner. 10/07/2017 Discontinued IBUPROFEN (ADVIL ORAL) Take by 0 mouth. 10/07/2017 Discontinued fentaNYL (DURAGESIC) 100 Place 1 patch 0 mcg/hr patch onto the skin every third day. 10/07/2017 Discontinued TRAMETINIB DIMETHYL Take by 0 SULFOXIDE (MEKINIST ORAL) mouth. 10/07/2017 Discontinued POTASSIUM CHLORIDE Take 1 tablet 0 (KLOR-CON ORAL) by mouth. 10/07/2017 Discontinued cholecalciferol (VITAMIN Take 1,000 0 D3) 1,000 unit tablet Units by mouth daily. 10/20/2017 fluconazole (DIFLUCAN) Take 100 mg 0 100 MG tablet by mouth 8 daily. 10/15/2017 Discontinued liothyronine (CYTOMEL) 25 Take 25 mcg 0 MCG tablet by mouth Every morning on an empty stomach. 11/14/2017 sodium bicarbonate 650 MG Take 1 tablet 90 tablet 1 tablet (650 mg 8 total) by mouth 3 (three) times daily for 30 days. 11/15/2017 amLODIPine (NORVASC) 10 Take 1 tablet 30 tablet 1 MG tablet (10 mg total) 8 by mouth daily for 30 days. Active Problems Problem Noted Date MULUGETA (acute kidney injury) 10/06/2017 Lung cancer 10/06/2017 Benign prostatic hyperplasia with lower urinary tract symptoms 10/06/2017 Encounters Care Team Description Date Type Specialty Radhames Martinez CRNA 10/13/2017 Anesthesia Event Jorge Zendejas MD CYSTOSCOPY,RETROGRADES 10/13/2017 Surgery Tal Corona MD Shiekh Sroujieh, MD Jacob Peralta Titilola R., MD Tirukkovalluri, Srilakshmi, MD MULUGETA (acute kidney injury) (HCC) (Primary Dx); Adenocarcinoma (HCC); Essential hypertension; General weakness; Malignant neoplasm of lung, unspecified laterality, unspecified part of lung (HCC); Benign prostatic hyperplasia with urinary obstruction; CKD (chronic kidney disease) stage 3, GFR 30-59 ml/min; Hydronephrosis, unspecified hydronephrosis type; Metabolic acidosis; Bilateral hydronephrosis; Urinary tract infection without hematuria, site unspecified 10/06/2017 Hospital General Internal Medicine - Encounter 10/15/2017 after 08/28/2017 Social History Date Tobacco Use Types Packs/Day Years Used Never Smoker Smokeless Tobacco: Never Used Alcohol Use Drinks/Week oz/Week Comments No Sex Assigned at Date Recorded Not on file Industry Job Start Date Occupation Not on file Not on file Not on file Travel End Travel History Travel Start No recent travel history available. Last Filed Vital Signs Time Taken Vital Sign Reading 10/15/2017 3:25 PM CDT Blood Pressure 127/80 10/15/2017 3:25 PM CDT Pulse 96 10/15/2017 3:25 PM CDT Temperature 36.8 C (98.3 F) 10/15/2017 3:25 PM CDT Respiratory Rate 18 10/15/2017 3:25 PM CDT Oxygen Saturation 98% - Inhaled Oxygen - Concentration 10/07/2017 12:37 AM CDT Weight 110.2 kg (243 lb) 10/07/2017 12:37 AM CDT Height 172.7 cm (5' 8") 10/07/2017 12:37 AM CDT Body Mass Index 36.95 Plan of Treatment Not on file Implants Device Identifier Shelf Expiration Date Model / Serial / Lot Implanted Type Area Manufactur er 10/01/2019 192-143 / / [id number] Stent Uret Ult Steven [id number] 192-143 - Uro Stent Right: Ureter [employer] [id number] SCI:UROLOG Implanted: Qty: 1 on 10/13/2017 by Y/Jorge Lau MD GY 11/28/2017 192-143 / / [id number] Stent Uret Ult Steven [id number] 192-143 - Uro Stent Right: Ureter [employer] [id number] SCI:UROLOG Implanted: Qty: 1 on 10/13/2017 by Tashia/Jorge Lau MD GY 02/17/2018 [id number] / / [id number] Stent Uret Cntour Inj [id number] Uro Stent Left: Ureter [employer] [id number] - [id number] SCI:UROLOG Implanted: Qty: 2 on 10/13/2017 by Tashia/Jorge Lua MD GY Procedures Comments Procedure Name Priority Date/Time Associated Diagnosis RHYTHM STRIP - SCAN 10/19/2017 8:50 AM CDT BASIC METABOLIC PANEL (7) Routine 10/15/2017 5:22 AM CDT CBC W/PLT COUNT & AUTO Routine 10/14/2017 DIFFERENTIAL 6:09 AM CDT CBC W/PLT COUNT & AUTO Routine 10/14/2017 DIFFERENTIAL 6:09 AM CDT BASIC METABOLIC PANEL (7) Routine 10/14/2017 4:25 AM CDT CREATININE, RANDOM URINE Routine 10/13/2017 9:52 PM CDT SURGICALLY OBTAINED Routine 10/13/2017 CULTURE + GRAM STAIN 9:52 PM CDT SURGICALLY OBTAINED Routine 10/13/2017 CULTURE + GRAM STAIN 9:52 PM CDT CREATININE, RANDOM URINE Routine 10/13/2017 9:52 PM CDT FL ENERGY ENGINEER IN OR 30 Routine 10/13/2017 MINUTE INCREMENTS 9:25 PM CDT CYSTOSCOPY,INSERTION 10/13/2017 Stricture or kinking of URETERAL STENTS 8:00 PM CDT ureter Special Needs REQ 1900 CYSTOSCOPY,RETROGRADES 10/13/2017 Stricture or kinking of 8:00 PM CDT ureter Special Needs REQ 1900 POCT-GLUCOSE METER Routine 10/13/2017 5:30 PM CDT CBC W/PLT COUNT & AUTO Routine 10/13/2017 DIFFERENTIAL 5:40 AM CDT BASIC METABOLIC PANEL (7) Routine 10/13/2017 5:40 AM CDT CBC W/PLT COUNT & AUTO Routine 10/13/2017 DIFFERENTIAL 5:40 AM CDT BASIC METABOLIC PANEL (7) Routine 10/12/2017 4:22 AM CDT BASIC METABOLIC PANEL (7) Routine 10/11/2017 8:41 AM CDT US RENAL COMPLETE Routine 10/11/2017 4:05 AM CDT BASIC METABOLIC PANEL (7) STAT 10/10/2017 5:18 AM CDT BASIC METABOLIC PANEL (7) STAT 10/09/2017 5:36 AM CDT BASIC METABOLIC PANEL (7) STAT 10/08/2017 9:33 AM CDT PROTHROMBIN TIME/INR Routine 10/08/2017 6:13 AM CDT APTT Routine 10/08/2017 6:[address] ABDOMEN & PELVIS - GELY 10/07/2017 RENAL STONE EVALUATION 7:05 PM CDT WITHOUT IV CONTRAST PHOSPHORUS Routine 10/07/2017 5:45 AM CDT MAGNESIUM Routine 10/07/2017 5:45 AM CDT BASIC METABOLIC PANEL (7) Routine 10/07/2017 5:45 AM CDT CBC W/PLT COUNT & AUTO Routine 10/07/2017 DIFFERENTIAL 4:11 AM CDT CBC W/PLT COUNT & AUTO Routine 10/07/2017 DIFFERENTIAL 4:11 AM CDT US RENAL COMPLETE STAT 10/06/2017 8:50 PM CDT URINALYSIS W/ MICROSCOPIC STAT 10/06/2017 3:31 PM CDT URINE CULTURE STAT 10/06/2017 3:31 PM CDT CBC W/PLT COUNT & AUTO STAT 10/06/2017 DIFFERENTIAL 3:29 PM CDT CBC W/PLT COUNT & AUTO STAT 10/06/2017 DIFFERENTIAL 3:29 PM CDT BASIC METABOLIC PANEL (7) STAT 10/06/2017 3:29 PM CDT after 08/28/2017 Results * RHYTHM STRIP - SCAN (10/19/2017 8:50 AM CDT) Narrative Performed At * Basic Metabolic Panel (10/15/2017 5:22 AM CDT) Only the most recent of 10 results within the time period is included. Sodium 138 136 - 145 meq/L [facility] Potassium 4.7 3.5 - 5.1 meq/L [facility] Chloride 107 98 - 107 meq/L [facility] CO2 18 (L) 22 - 29 meq/L [facility] BUN 70 (H) 7 - 21 mg/dL [facility] Creatinine 5.74 (H) 0.57 - 1.25 mg/dL [facility] Glucose 99 70 - 105 mg/dL [facility] Calcium 9.8 8.4 - 10.2 mg/dL [facility] EGFR 10Comment: ESTIMATED GFR IS mL/min/1.73 sq m [facility] NOT ACCURATE CREATININE [facility] CLEARANCE IN PREDICTING GLOMERULAR FILTRATION RATE. ESTIMATED GFR IS NOT APPLICABLE FOR DIALYSIS PATIENTS. Specimen Blood Performing Organization Address City/State/Zipcode Phone Number [facility] [address] [place] [address] [facility] * CBC with platelet count + automated diff (10/14/2017 6:09 AM CDT) Only the most recent of 4 results within the time period is included. WBC 5.8 3.5 - 10.5 K/L [facility] RBC 4.24 (L) 4.63 - 6.08 M/L [facility] Hemoglobin 11.8 (L) 13.7 - 17.5 GM/DL [facility] Hematocrit 37.8 (L) 40.1 - 51.0 % [facility] MCV 89.2 79.0 - 92.2 fL [facility] MCH 27.8 25.7 - 32.2 pg [facility] MCHC 31.2 (L) 32.3 - 36.5 GM/DL [facility] RDW 18.5 (H) 11.6 - 14.4 % [facility] Platelets 143 (L) 150 - 450 K/CU MM [facility] MPV 9.5 9.4 - 12.4 fL [facility] nRBC 0 0 - 0 /100 WBC [facility] % Neutros 91 % [facility] % Lymphs 6 % [facility] % Monos 2 % [facility] % Eos 0 % [facility] % Baso 0 % [facility] # Neutros 5.22 1.78 - 5.38 K/L [facility] # Lymphs 0.36 (L) 1.32 - 3.57 K/L [facility] # Monos 0.13 (L) 0.30 - 0.82 K/L [facility] # Eos 0.00 (L) 0.04 - 0.54 K/L [facility] # Baso 0.02 0.01 - 0.08 K/L [facility] Immature 0 0 - 1 % [facility] Granulocytes-Relative [facility] Specimen Blood Performing Organization Address City/State/Zipcode Phone Number [facility] [address] [place] [address] [facility] * Surgically obtained culture + gram stain (10/13/2017 9:52 PM CDT) Only the most recent of 2 results within the time period is included. Result JEANNE ALBICANS (A) [facility] Gram Stain Result 4+ White blood cells seen [facility] Gram Stain Result No organisms seen [facility] Specimen Other - Other Performing Organization Address City/[facility]/Zipcode Phone Number [facility] [address], [place] [phone] [facility] * Creatinine, random urine (10/13/2017 9:52 PM CDT) Only the most recent of 2 results within the time period is included. Creatinine, Ur 23.2 mg/dL [facility] Specimen Urine - Urine, Surgically Obtained Narrative Performed At Reference Range: No Normals [facility] LEFT KIDNEY FLUID for Creatinine level [facility] Performing Organization Address City/[facility] Cent[facility] Phone Number [facility] [address], [place] [phone] [facility] * [place] radio repairman in or 30 minute increments (10/13/2017 9:25 PM CDT) Specimen Narrative Performed At FINAL REPORT [employer] Retrograde Pyelography Clinical History: Cystoscopy, ureteral stent placement Impression: Intraoperative images are obtained. The radiologist is not present during the procedure. Images are presented for interpretation at the completion of the procedure.Please refer to the procedure report for more details. Number of images obtained:28 Fluoroscopy time: 2.26 minutes Signed: Thor Sterling MD Report Verified Date/Time:10/13/2017 23:54:50 Reading Location: [address] Consult Reading Room Procedure Note Interface, External Ris In - 10/13/2017 11:56 PM CDT FINAL REPORT Retrograde Pyelography Clinical History: Cystoscopy, ureteral stent placement Impression: Intraoperative images are obtained. The radiologist is not present during the procedure. Images are presented for interpretation at the completion of the procedure. Please refer to the procedure report for more details. Number of images obtained: 28 Fluoroscopy time: 2.26 minutes Signed: Thor Sterling MD Report Verified Date/Time: 10/13/2017 23:54:50 Reading Location: [address] Consult Reading Room Performing Organization Address City/[facility] Centercode Phone Number [employer] * POC-Glucose meter (10/13/2017 5:30 PM CDT) POC-Glucose Meter 98Comment: TESTED AT [facility] 70 - 110 mg/dL [facility] [address] [facility] [address] [facility] Specimen Blood Performing Organization Address City/State/Zipcode Phone Number [facility] [address] [place] [address] [facility] * US renal complete (10/11/2017 4:05 AM CDT) Only the most recent of 2 results within the time period is included. Specimen Narrative Performed At FINAL REPORT [facility] U/S, RENAL, COMPLETE CLINICAL INDICATION:"follow up hydronephrosis and compare to prior study" COMPARISON: CT abdomen and pelvis 10/07/2017 TECHNIQUE:The kidneys and urinary bladder were evaluated using real time valadez scale and color Doppler sonography. FINDINGS: Right kidney: Redemonstration of severe hydronephrosis. The proximal portion of the ureteral stent is visualized in the renal pelvis. Simple cyst in the superior pole of the kidney. Left kidney: Redemonstration of severe hydronephrosis. The proximal portion of the ureteral stent is visualized in the renal pelvis. Renal Vasculature: Doppler interrogation reveals preserved vascular flow in the main renal arteries and veins bilaterally. The visualized portions of the abdominal aorta and IVC are unremarkable. Urinary bladder: Decompressed by a Luke catheter and otherwise not evaluated. IMPRESSION: Stable severe bilateral hydronephrosis with the proximal portions of the ureteral stents resting in the renal pelvis. Signed: Gaetano Herrera MD Report Verified Date/Time:10/11/2017 04:54:48 Reading Location: [address] Reading Room Procedure Note Interface, External Ris In - 10/11/2017 4:56 AM CDT FINAL REPORT U/S, RENAL, COMPLETE CLINICAL INDICATION: "follow up hydronephrosis and compare to prior study" COMPARISON: CT abdomen and pelvis 10/07/2017 TECHNIQUE: The kidneys and urinary bladder were evaluated using real time valadez scale and color Doppler sonography. FINDINGS: Right kidney: Redemonstration of severe hydronephrosis. The proximal portion of the ureteral stent is visualized in the renal pelvis. Simple cyst in the superior pole of the kidney. Left kidney: Redemonstration of severe hydronephrosis. The proximal portion of the ureteral stent is visualized in the renal pelvis. Renal Vasculature: Doppler interrogation reveals preserved vascular flow in the main renal arteries and veins bilaterally. The visualized portions of the abdominal aorta and IVC are unremarkable. Urinary bladder: Decompressed by a Luke catheter and otherwise not evaluated. IMPRESSION: Stable severe bilateral hydronephrosis with the proximal portions of the ureteral stents resting in the renal pelvis. Signed: Gaetano Herrera MD Report Verified Date/Time: 10/11/2017 04:54:48 Reading Location: [address] Transitional Reading Room Performing Organization Address City/[facility] Centercode Phone Number [employer] * aPTT (10/08/2017 6:13 AM CDT) PTT 35.6 22.5 - 36.0 seconds [facility] Specimen Blood Performing Organization Address City/[facility] Centercode Phone Number [facility] [address] [place] [address] [facility] * Prothrombin time/INR (10/08/2017 6:13 AM CDT) Protime 16.1 (H) 11.7 - 14.7 seconds [facility] INR 1.3 <=5.9 [facility] Specimen Blood Narrative Performed At RECOMMENDED COUMADIN/WARFARIN INR THERAPY RANGES [facility] STANDARD DOSE: 2.0 - 3.0 Includes: PROPHYLAXIS for venous thrombosis, [facility] systemic embolization; TREATMENT for venous thrombosis and/or pulmonary embolus. HIGH RISK: Target INR is 2.5-3.5 for patients with mechanical heart valves. Performing Organization Address [facility] Centercoin Phone Number [facility] [address] [place] [address] [facility] * CT abdomen & pelvis - renal stone evaluation without iv contrast (10/07/2017 7:05 PM CDT) Specimen Narrative Performed At FINAL REPORT [employer] HISTORY : stent placement eval Technique: Multiple axial images of the abdomen and pelvis were performed without the administration of IV or oral contrast. This exam was performed according to our departmental dose optimization program which includes automated exposure control, adjustment of the mA and/or kV according to patient size and/or use of iterative reconstructive technique. COMPARISON :None COMMENT : There is a trace right-sided pleural effusion. The visualized liver, spleen, adrenal glands, gallbladder, stomach and duodenum are within normal limits. There is some nonspecific bilateral peripancreatic edema. This could represent some extension of the edema from the perinephric changes. Findings should be correlated with amylase and lipase values to exclude the possibility of pancreatitis. The kidneys are atrophic. Arising from the upper pole of the right kidney, there is a 4.9 cm cyst. There are bilateral ureteral stents in place. There is a moderate-severe degree of bilateral hydronephrosis, right greater than left. There is no significant hydroureter. No definite CT opaque stones are identified along the lateral ureteral stents. The etiology of the hydronephrosis is unclear based on this noncontrast CT. There is atherosclerotic vascular disease. There is no abdominal, retroperitoneal or pelvic lymphadenopathy. There are small bilateral fat-containing inguinal hernias. No bowel contents are seen within the hernias, however. Multilevel degenerative disc changes of the thoracolumbar spine are seen. Vertebroplasty changes are seen at L1. There is no free fluid or free air in the abdomen or pelvis. No findings of any bowel obstruction. The small bowel is within normal limits. There is colonic diverticulosis. There are no CT findings to suggest diverticulitis, however. The appendix is visualized. There are no CT findings to suggest appendicitis. The prostate gland is enlarged. The seminal vesicles are grossly within normal limits. Impression: 1. Bilateral ureteral stents in place. There is a moderate-severe degree of bilateral hydronephrosis. No significant hydroureter seen. No renal/ureteral stones are identified. 2. Right renal cyst. 3. Enlarged prostate gland. Signed: Conor Hu MD Report Verified Date/Time:10/08/2017 09:41:13 Reading Location: [facility] Diagnostic Imaging Reading Room - [place] [id number] Procedure Note Interface, External Ris In - 10/08/2017 9:43 AM CDT FINAL REPORT HISTORY : stent placement eval Technique: Multiple axial images of the abdomen and pelvis were performed without the administration of IV or oral contrast. This exam was performed according to our departmental dose optimization program which includes automated exposure control, adjustment of the mA and/or kV according to patient size and/or use of iterative reconstructive technique. COMPARISON : None COMMENT : There is a trace right-sided pleural effusion. The visualized liver, spleen, adrenal glands, gallbladder, stomach and duodenum are within normal limits. There is some nonspecific bilateral peripancreatic edema. This could represent some extension of the edema from the perinephric changes. Findings should be correlated with amylase and lipase values to exclude the possibility of pancreatitis. The kidneys are atrophic. Arising from the upper pole of the right kidney, there is a 4.9 cm cyst. There are bilateral ureteral stents in place. There is a moderate-severe degree of bilateral hydronephrosis, right greater than left. There is no significant hydroureter. No definite CT opaque stones are identified along the lateral ureteral stents. The etiology of the hydronephrosis is unclear based on this noncontrast CT. There is atherosclerotic vascular disease. There is no abdominal, retroperitoneal or pelvic lymphadenopathy. There are small bilateral fat-containing inguinal hernias. No bowel contents are seen within the hernias, however. Multilevel degenerative disc changes of the thoracolumbar spine are seen. Vertebroplasty changes are seen at L1. There is no free fluid or free air in the abdomen or pelvis. No findings of any bowel obstruction. The small bowel is within normal limits. There is colonic diverticulosis. There are no CT findings to suggest diverticulitis, however. The appendix is visualized. There are no CT findings to suggest appendicitis. The prostate gland is enlarged. The seminal vesicles are grossly within normal limits. Impression: 1. Bilateral ureteral stents in place. There is a moderate-severe degree of bilateral hydronephrosis. No significant hydroureter seen. No renal/ureteral stones are identified. 2. Right renal cyst. 3. Enlarged prostate gland. Signed: Conor Hu MD Report Verified Date/Time: 10/08/2017 09:41:13 Reading Location: [facility] Diagnostic Imaging Reading Room - [place] [address] Performing Organization Address City/State/Zipcode Phone Number [facility] * Phosphorus (10/07/2017 5:45 AM CDT) Phosphorus 6.8 (H) 2.3 - 4.7 mg/dL [facility] Specimen Blood Performing Organization Address City/State/Zipcode Phone Number [facility] [address] [place] [address] [facility] * Magnesium (10/07/2017 5:45 AM CDT) Magnesium 2.4 1.6 - 2.6 mg/dL [facility] Specimen Blood Performing Organization Address City/[facility]/Zipcode Phone Number [address] [address] [phone] [place] [address] * Urinalysis w/Microscopic (10/06/2017 3:31 PM CDT) Color, UA Light Yellow [facility] Clarity, UA Hazy [facility] Specific [place], UA 1.006 1.001 - 1.035 [facility] pH, UA 5.5 5.0 - 8.0 [facility] Protein, UA 50 mg/dL (A) Negative [facility] Glucose, UA Negative Negative [facility] Ketones, UA Negative Negative [facility] Bilirubin, UA Negative Negative [facility] Blood, UA Large (A) Negative [facility] Nitrite, UA Negative Negative [facility] Leukocytes, UA Large (A) Negative [facility] Urobilinogen, UA 0.2 0.2 - 1.0 mg/dL [facility] RBC, UA 16 /HPF [facility] WBC, UA 128 /HPF [facility] Bacteria, UA Occasional [facility] Yeast Rare [facility] Specimen Source [facility] Specimen Urine Performing Organization Address City/State/Zipcode Phone Number [facility] [address] [place] [address] [facility] * Urine culture (10/06/2017 3:31 PM CDT) Result JEANNE ALBICANS (A) [facility] Specimen Urine Narrative Performed At <10,000 col/mL skin blaine [facility] Performing Organization Address City/State/Zipcode Phone Number [facility] [address] [place] [address] [facility] after 08/28/2017 Insurance Payer Benefit Subscriber ID Type Phone Address Plan / Group BLUE CROSS/BLUE SHIELD BCBS ADV xxxxxxxxxxxx [phone] [address] [place] [address] EXCHANGE Advance Directives For more information, please contact: [address] [address] Date Inactivated Comments Code Status Date Activated 10/15/2017 8:46 PM Full Code 10/06/2017 11:02 PM This code status was determined by: Patient
--- OUTSIDE RECORDS SUMMARY | 2018-08-29 05:13 | XMS REPORT | Clinical Summary ---
Author Author Piotr [facility] Organization [facility] Address Unknown Phone Unavailable Care Team Providers Care Senior Quality Assurance Engineer Name Role Phone Asked, No Pcp PCP Unavailable Allergies Comments Active Allergy Reactions Severity Noted Date Severe nausea Promethazine GI 03/10/2016 Intolerance Medications End Date Status Medication Sig Dispensed Refills Start Date Active acetaminophen-codeine 0 (TYLENOL WITH CODEINE #4) 6 300-60 mg per tablet Active amLODIPine (NORVASC) 2.5 TAKE ONE (1) 1 mg tablet TABLET(S) BY 6 MOUTH ONCE A DAY. Active TAFINLAR 75 mg chemo 0 capsule 6 Active MEKINIST 2 mg chemo 0 tablet 6 Active losartan-hydrochlorothiaz TAKE ONE (1) 1 heide (HYZAAR) 100-25 mg TABLET(S) BY 6 per tablet MOUTH DAILY. Active metFORMIN XR TAKE ONE (1) 1 (GLUCOPHAGE-XR) 500 mg 24 TABLET(S) BY 6 hr tablet MOUTH DAILY. Active evildhab-afnezewuz-vgcprj INSTILL ONE 0 thasone (MAXITROL) (1) DROP IN 6 3.5mg/mL-10,000 BOTH EYES 4 unit/mL-0.1 % ophthalmic TIMES A DAY. suspension Active KLOR-CON 10 10 mEq CR TAKE ONE (1) 11 tablet TABLET(S) BY 6 MOUTH ONCE A DAY. Active pravastatin (PRAVACHOL) TAKE ONE (1) 1 40 MG tablet TABLET(S) BY 6 MOUTH DAILY DIRECTED. Active SENNA LAX 8.6 mg tablet 0 6 Active fentaNYL (DURAGESIC) 12.5 PLACE ONE (1) 0 mcg/hr PATCH ON THE 6 SKIN EVERY 72 HOURS. Active cholecalciferol, vitamin Take 1,000 0 D3, (VITAMIN D3) 1,000 Units by unit tablet mouth daily. Active aspirin (ECOTRIN) 81 MG Take 81 mg by 0 enteric coated tablet mouth daily. 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 Last Filed Vital Signs Not on file Plan of Treatment Not on file Results Not on fileafter 08/28/2017 Insurance Type Payer Benefit Subscriber ID Effective Phone Address Plan / Dates Group Exchange HUMANA EXCHANGE HUMANA PPO xxxxxxxxx 2015-P EXCHANGE resent HMO HUMANA HUMANA xxxxxxxxx 2015-P HMO/POS/EP resent O/OPEN ACCESS Advance Directives Patient has advance care planning documents on file. For more information, dinorah sierra contact: Piotr Lawson [address] [place] [address]
[2018-08-29 08:45] VITALS: BP 131/77
--- NOTE | 2018-10-10 04:32 | Operative Report ---
DATE OF PROCEDURE: 08/29/2018 SURGEON: Jorge Zendejas MD PREOPERATIVE DIAGNOSES: 1. Bilateral ureteral strictures. 2. Bilateral hydronephrosis. 3. Bilateral indwelling ureteral stents. POSTOPERATIVE DIAGNOSES: 1. Bilateral ureteral strictures. 2. Bilateral hydronephrosis. 3. Bilateral indwelling ureteral stents. OPERATIONS PERFORMED: 1. Cystourethroscopy with complicated removal of a total of four indwelling ureteral stents (separate procedure performed for the diagnosis of the stents). 2. Cystourethroscopy with bilateral dilation of ureteral strictures (separate procedure performed for the diagnosis of stricture). 3. Radiological services for supervision and interpretation of stricture dilation. 4. Cystourethroscopy with insertion of a total of four indwelling ureteral stents, two on each side (separate procedure performed to relieve the hydronephrosis). 5. Interpretation of retrograde ureteropyelography. 6. Supervision of fluoroscopy, no radiologist present. ANESTHESIA: General. COMPLICATIONS: None. CLINICAL SUMMARY: Pualo Wolf is a complicated 57-year-old man with the above preoperative diagnoses. He has an atrophic left kidney. He has recurrent candiduria. He has chronic renal insufficiency and has had an acute exacerbation. He is brought for the above procedures. He is aware of the risks of bleeding, infection, injury to adjacent structures, need for additional procedures and elected to proceed. OPERATIVE PROCEDURE IN DETAIL: Informed consent was verified. Paulo Wolf was properly identified, taken to the operating room, placed on the cystoscopy table in supine position. Anesthesia was uneventfully begun. The patient was then carefully gently repositioned in the dorsal lithotomy position with all pressure points well padded. His genitalia were prepared and draped in usual sterile fashion. The cystoscope sheath was inserted under direct vision with the visual obturator in place. It was guided down the unremarkable distal urethra and passed a wide caliber, probably not clinically significant strictures outside the sphincteric region. We passed through the normal sphincteric region and went through the prostate bed, which was significant for bilobar prostatic hypertrophy with kissing lateral lobes and visual obstruction. Panendoscopy of the urinary bladder revealed two stents emerging from each ureteral orifice. We first performed the procedure on the right side and then we performed the procedure on the left side. A guidewire was then placed alongside the stents into the right ureter and guided to the level of the patient's kidney. The stents were then grasped, completely removed and then discarded. A dilator sheath was then placed atraumatically over the guidewire and guided to the level of the patient's renal pelvis thus dilating the ureter. Contrast was left in place. Secondary guidewire was left in place. With cystoscopic and fluoroscopic guidance, two separate indwelling ureteral stents were placed, coiled in the patient's right kidney as well as the patient's bladder. The retaining sutures were removed. An identical procedure was performed on the left hand side with similar findings. Interpretation of retrograde ureteropyelography: Contrast was instilled in a retrograde fashion via the dilating sheath. There was bilateral hydronephrosis. It was more severe on the right than on the left. Calyceal blunting was present throughout. The stents were in good position, coiled in the patient's kidneys as well as in the patient's bladder at the end of the case. The patient's bladder was drained. Cystoscope was withdrawn. Belladonna and opium suppository were placed revealing a large prostate, smooth, non-fluctuant without any nodules. The patient was then uneventfully reversed from anesthesia and taken to recovery room in stable condition. There were no complications to the procedure. He tolerated the procedure well. Plan will be to perform the same procedure in approximately two months. Jorge Zendejas MD [place]/MODL /[id number] cc: Robi Card MD
== END | disposition home or self-care (01) ==
LOC: OR 05:00
PROVIDERS: ATTEND Urology
DX: N13.5 Crossing vessel and stricture of ureter without hydronephrosis (principal); N13.30 Unspecified hydronephrosis; Z46.6 Encounter for fitting and adjustment of urinary device; N40.0 Benign prostatic hyperplasia without lower urinary tract symptoms; I12.9 Hypertensive chronic kidney disease with stage 1 through stage 4 chronic kidney disease, or unspecified chronic kidney disease; N18.9 Chronic kidney disease, unspecified; E66.01 Morbid (severe) obesity due to excess calories; Z88.1 Allergy status to other antibiotic agents; Z88.8 Allergy status to other drugs, medicaments and biological substances; Z79.82 Long term (current) use of aspirin; Z85.118 Personal history of other malignant neoplasm of bronchus and lung
CPT/HCPCS: 52332; 52341; 74420; C2617; J1100; J1956; J2001; J2250; J2405; J2704; Q9967; C1788; J3010

== ENCOUNTER → 2018-10-22 | Day surgery (SDC) | payer BC ==
[~2018-10-22] MED LIST changes: +FLUCONAZOLE 200 MG/100 ML 100 ML IV ONE; +LEVOFLOXACIN 250MG/D5W 50ML 50 ML IV ONE; -LEVOFLOXACIN 250MG/D5W 50ML 50 ML ONE
[2018-10-22 08:45] LABS: BASOPHILS % 0.3 % (0.0-1.0); EOSINOPHILS # (AUTO) 0.6 (0.0-0.4); EOSINOPHILS % 8.7 % (0.0-6.0); HEMATOCRIT 42.5 % (38.2-49.6); HEMOGLOBIN 12.6 g/dL (14.0-18.0); LYMPHOCYTES # (AUTO) 0.4 (1.0-3.2); LYMPHOCYTES % 6.3 % (18.0-39.1); MEAN CORPUSCULAR HEMOGLOBIN 27.4 pg (28-32); MEAN CORPUSCULAR HGB CONC 29.6 g/dL (31-35); MEAN CORPUSCULAR VOLUME 92.4 fL (81-99); MONOCYTES # (AUTO) 0.8 (0.2-0.8); MONOCYTES % 11.2 % (4.4-11.3); NEUTROPHILS # (AUTO) 4.9 (2.1-6.9); NEUTROPHILS % 72.9 % (38.7-80.0); RED CELL DISTRIBUTION WIDTH 17.4 % (11.7-14.4)
[2018-10-22 08:52] LABS: PLATELET COUNT 103 x10e3/uL (140-360)
[2018-10-22 09:04] LABS: EOSINOPHILS % (MANUAL) 8 % (0-7); LYMPHOCYTES % (MANUAL) 5 % (19-48); METAMYELOCYTES % (MANUAL) 1 % (0-0); MONOCYTES % (MANUAL) 9 % (3.4-9.0); NEUTROPHILS % (MANUAL) 76 % (40-74)
[2018-10-22 09:05] LABS: ANISOCYTOSIS SLIGHT; PLATELET ESTIMATE SLIGHTLY DECREASED; PLATELET MORPHOLOGY COMMENT NORMAL; RBC MORPHOLOGY COMMENT ABNORMAL
--- OUTSIDE RECORDS SUMMARY | 2018-10-22 10:44 | XMS REPORT | Clinical Summary ---
Author Author Piotr [facility] Organization [facility] Address Unknown Phone Unavailable Care Team Providers Care Tomato Pulper Operator Name Role Phone Asked, No Pcp PCP [...] BY 6 hr tablet MOUTH DAILY. Active xkvjkctt-jxadfnfly-pbjvdf INSTILL ONE 0 thasone (MAXITROL) (1) DROP [...] Not on file Results Not on fileafter 10/21/2017 Insurance Type Payer Benefit Subscriber ID Effective Phone Address Plan / Dates Group Exchange HUMANA EXCHANGE HUMANA PPO xxxxxxxxx 2015-P EXCHANGE resent HMO HUMANA HUMANA xxxxxxxxx 2015-P HMO/POS/EP resent O/OPEN ACCESS Advance Directives Patient has advance care planning documents on file. For more information, dinorah sierra contact: Piotr Lawson [address] [place] [address]
--- OUTSIDE RECORDS SUMMARY | 2018-10-22 10:44 | XMS REPORT | Clinical Summary ---
Author Author JEFF [facility] Organization [facility] Address Unknown Phone Unavailable Care Team Providers Care Interventional Sale Consultant Name Role Phone Robi Card PCP Allergies [...] 0 IV) intravenously once every 3 weeks. 11/14/2017 sodium bicarbonate 650 MG Take 1 [...] hyperplasia with lower urinary tract symptoms 10/06/2017 Social History Date Tobacco Use Types Packs/Day [...] file Plan of Treatment Not on file Implants Device Identifier Shelf Expiration Date Model / Serial / Lot Implanted Type Area Manufactur er 10/01/2019 192-143 / / [id number] Stent Uret Ult Steven [id number] 192-143 - Uro Stent Right: Ureter [employer]ON [id number] SCI:UROLOG Implanted: Qty: 1 on 10/13/2017 by Tashia/Jorge Lau MD GY 11/28/2017 192-143 / / [id number] Stent Uret Ult Steven [id number] 192-143 - Uro Stent Right: Ureter [employer] [id number] SCI:UROLOG Implanted: Qty: 1 on 10/13/2017 by Tashia/Jorge Lau MD GY 02/17/2018 [id number] / / [id number] Stent Uret Cntour Inj [id number] Uro Stent Left: Ureter [employer]ON [id number] SCI:UROLOG Implanted: Qty: 2 on 10/13/2017 by Tashia/Jorge Lau MD GY Results Not on fileafter 10/21/2017 Insurance Payer Benefit Subscriber ID Type Phone Address Plan / Group BLUE CROSS/BLUE SHIELD BCBS ADV xxxxxxxxxxxx [phone] [address] [place] [address] EXCHANGE Advance Directives For more information, please contact: [facility] [address] [place] [address] Date Inactivated Comments Code Status Date Activated 10/15/2017 8:46 PM Full Code 10/06/2017 11:02 PM This code status was determined by: Patient
[2018-10-22 11:15] VITALS: BP 132/78
--- NOTE | 2018-12-22 07:17 | Operative Report ---
DATE OF PROCEDURE: 10/22/2018 SURGEON: Jorge Zendejas MD PREOPERATIVE DIAGNOSES: 1. Bilateral ureteral strictures. 2. Bilateral hydronephrosis. 3. Bilateral indwelling ureteral stents. POSTOPERATIVE DIAGNOSES: 1. Bilateral ureteral strictures. 2. Bilateral hydronephrosis. 3. Bilateral indwelling ureteral stents. OPERATIONS PERFORMED: 1. Cystourethroscopy with complicated removal of bilateral double stents for total of four stents removed. 2. Cystourethroscopy with bilateral dilation of ureteral stricture (surgery performed for the diagnosis of stricture). 3. Radiological services for supervision and interpretation of ureteral stricture dilation. 4. Cystourethroscopy with insertion of a total of four stents, two on each side (separate procedure performed to provide maximal drainage of the patient's kidneys). 5. Interpretation of retrograde ureteropyelography. 6. Supervision of fluoroscopy, no radiologist present. ANESTHESIA: General. COMPLICATIONS: None. CLINICAL SUMMARY: Paulo Wolf is a complicated 57-year-old man with the above preoperative diagnoses. He was managed with bilateral double stents. He was brought for the above procedure. The patient has chronic renal insufficiency with acute exacerbations, which are fairly dependent on his stent functions and usually responds with improvement of his poor renal function with the changing of stents. He is aware of the risks of bleeding, infection, injury to adjacent structures, need for additional procedures and elected to proceed. OPERATIVE PROCEDURE IN DETAIL: Informed consent was verified. Paulo Wolf was properly identified and taken to the operating room and placed on the cystoscopy table in supine position. Anesthesia was uneventfully begun. The patient was then carefully and gently repositioned in dorsal lithotomy position with all pressure points well padded. His genitalia were prepared and draped in usual sterile fashion. The cystoscope sheath with a visual obturator in place was atraumatically inserted into the patient's urethra, it was guided down the urethra, which was significant for panurethral stricture disease, which was wide and caliber, not clinically significant. We went through the prostate bed, which was significant for severely obstructing bilobar BPH and we entered the patient's bladder. We identified the bilateral double stents that had some mild encrustation consistent with candidal infection or colonization, which the patient is permanently experiencing. A guidewire was then placed into the right ureter and guided to the level of the patient's kidney. There were two stents on the right-hand side, were grasped and removed and discarded. The double-lumen ureteral catheter was then utilized over the guidewire to dilate the ureter, it was recannulated the upper tract system. Contrast was injected. A secondary guidewire was placed. With cystoscopic and fluoroscopic guidance, two separate stents were placed in the right to pull aside the collecting system, coiled in the patient's renal pelvis as well as the patient's bladder. The retaining sutures were removed. An identical maneuver was performed on the left side with similar findings. The patient's bladder was drained. Cystoscope was withdrawn. Belladonna and opium suppository were placed revealing a large prostate that is smooth, non-fluctuant without any nodules. The patient was uneventfully reversed from anesthesia and taken to recovery in stable condition. Interpretation of retrograde ureteropyelography contrast was injected in retrograde fashion via the dilating and ureteral catheters. There was bilateral significant hydronephrosis. The stents were in good position, coiled the patient's kidneys as well as the patient's bladder at the end of the case. Plan will be to change the patient's stents in approximately two months. Hopefully, the patient's renal function will remain relatively stable until that time. Jorge Zendejas MD [place]/MODL /[id number] cc: Robi Card MD
== END | disposition home or self-care (01) ==
LOC: OR 08:00
PROVIDERS: ATTEND Urology
DX: N13.5 Crossing vessel and stricture of ureter without hydronephrosis (principal); N13.30 Unspecified hydronephrosis; Z46.6 Encounter for fitting and adjustment of urinary device; N40.1 Benign prostatic hyperplasia with lower urinary tract symptoms; N13.8 Other obstructive and reflux uropathy; R35.1 Nocturia; R97.20 Elevated prostate specific antigen [PSA]; E29.1 Testicular hypofunction; R80.9 Proteinuria, unspecified; B37.49 Other urogenital candidiasis; E11.22 Type 2 diabetes mellitus with diabetic chronic kidney disease; I12.9 Hypertensive chronic kidney disease with stage 1 through stage 4 chronic kidney disease, or unspecified chronic kidney disease; N18.9 Chronic kidney disease, unspecified; C34.90 Malignant neoplasm of unspecified part of unspecified bronchus or lung; I45.10 Unspecified right bundle-branch block; C79.9 Secondary malignant neoplasm of unspecified site; E66.9 Obesity, unspecified; Z79.82 Long term (current) use of aspirin; Z68.37 Body mass index [BMI] 37.0-37.9, adult
CPT/HCPCS: 36415; 52332; 52341; 74420; 85025; C2617; J1100; J1450; J1956; J2001; J2250; J2405; J2704; J3010; Q9967

== ENCOUNTER → 2018-12-09 | Day surgery (SDC) | payer BC ==
[~2018-12-09] MED LIST changes: +AMOXICILLIN250 MG PO; +DIFLUCAN100 MG PO; -LEVOFLOXACIN 250MG/D5W 50ML 50 ML IV ONE; +LEVOFLOXACIN 500MG/D5W 100ML 100 ML IV ONE
--- OUTSIDE RECORDS SUMMARY | 2018-12-09 10:06 | XMS REPORT | Summary of Care ---
Author Author [facility] Organization [facility] Address Unknown Phone Unavailable Care Team Providers Care Manager Critical Care Name Role Phone Robi Card PCP Reason for Referral * Infusion Clinic (Routine) Referred By Contact Referred To Contact Status Reason Specialty Diagnoses / Procedures Rimma Irving MD [address] [address] Pending New Treatment Infusion Center Diagnoses Infusion Metastatic non-small cell lung cancer P rocedures [place] OFFICE OUTPATIENT NEW 30 MINUTES * (Routine) Referred By Contact Referred To Contact Status Reason Specialty Diagnoses / Procedures Rimma Irving MD [address] [address] Pending Diagnoses Metastatic non-small cell lung cancer P rocedures IR FLUOROSCOPY GUIDED NEEDLE PLACEMENT Reason for Visit * Reason Comments Follow Up 3 week f/u * Consult, Test & Treat (Routine) Referred By Contact Referred To Contact Status Reason Specialty Diagnoses / Procedures Robi Card [address] [facility] [address] [place] [address] Rimma Irving MD [address] [address] Patient Medical Oncology Diagnoses Responsible / Hematology and Adenocarcinoma of Oncology lung, right f/u in 3 wks P rocedures [place] OFFICE OUTPATIENT VISIT 15 MINUTES ESTABLISHED OFFICE VISIT Encounter Details Care Team Description Date Type Department Rimma Irving MD [address] [address] [phone] Follow Up (3 week f/u) 11/16/2018 Office Visit [facility] Hematology and Oncology [address] [facility] 7th Floor, [address] [place] [phone] Allergies Comments Active Allergy Reactions Severity Noted Date Makes nausea worse Makes nausea worse Promethazine Nausea And 06/05/2015 Vomiting tingling lips Ceftriaxone Sodium In 03/16/2018 Dextrose documented as of this encounter (statuses as of 11/16/2018) Medications End Date Status Medication Sig Dispensed Refills Start Date Active pravastatin (PRAVACHOL) Take 40 mg by 0 40 MG tabletIndications: mouth daily. Malignant neoplasm of right lung, unspecified part of lung Active loratadine (CLARITIN) 10 Take 10 mg by 0 MG tabletIndications: mouth daily Malignant neoplasm of as needed. right lung, unspecified part of lung Active Tamsulosin HCl 0.4 MG Take 0.4 mg 0 CAPSIndications: by mouth Malignant neoplasm of daily. Take 2 lower lobe, right tabs by mouth bronchus or lung, daily Gastroesophageal reflux disease without esophagitis Active B Glbfqxa-M-A-Zn (MYBEC Take by 0 OR)Indications: Malignant mouth daily. neoplasm of lower lobe, right bronchus or lung Active liothyronine (CYTOMEL) 25 Take 25 mcg 0 MCG tabletIndications: by mouth Adenocarcinoma of lung, daily. Take 2 right tabs once daily Active aspirin 81 MG Take 81 mg by 0 tabletIndications: mouth daily. Adenocarcinoma of lung, right, Cancer related pain Active senna (RA SENNA) 8.6 MG Take 2 tabs 60 Tab 4 tabletIndications: by mouth 8 Adenocarcinoma of lung, daily right, Other constipation Active finasteride (PROSCAR) 5 Take 5 mg by 0 MG tabletIndications: mouth daily. Adenocarcinoma of lung, right Active levothyroxine (SYNTHROID) Take 75 mcg 0 75 MCG tabletIndications: by mouth Adenocarcinoma of lung, daily. right Active VALACYCLOVIR HCL OR Take by 0 mouth. 1/2 tab daily Active NIFEdipine (ADALAT CC) 30 Take 30 mg by 0 MG CR tablet mouth daily. Active clobetasol (TEMOVATE) Apply 50 mL 11 0.05 % external solution topically 9 twice a day as needed Active predniSONE (DELTASONE) 10 4 tabs by 80 Tab 2 MG tablet mouth for 7 9 days then 3 for 7 days then 2 for 7 days then 1 for 7 days then 1/2 tab for 7 days Active triamcinolone (KENALOG) Apply to 454 g 3 0.1 % cream affected area 9 twice a day as needed documented as of this encounter (statuses as of 11/16/2018) Active Problems Problem Noted Date Renal insufficiency 10/06/2017 History of immunotherapy 06/23/2017 Cancer related pain 02/10/2017 Nephrolithiasis 08/28/2016 Enlarged lymph node in neck 07/16/2016 Liver mass 07/01/2016 Overview: 3.4 cm on pet/ct 06/26/16 AK (actinic keratosis) 06/15/2016 Keratosis seborrheica 06/15/2016 Lentigines 06/15/2016 Multiple nevi 06/15/2016 Binocular vision disorder with diplopia 03/13/2016 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 Convergent squint 02/12/2016 Adenocarcinoma of lung, right 04/03/2015 Cancer Staging: Clinical stage from 05/23/2013: Stage IIIA (T1b, N2, M0) - Signed by Andreina Tang MD on 09/25/2017 Metastatic non-small cell lung cancer documented as of this encounter (statuses as of 11/16/2018) Resolved Problems Problem Noted Date Resolved Date 6th nerve palsy 09/17/2015 09/25/2017 documented as of this encounter (statuses as of 11/16/2018) Social History Date Tobacco Use Types Packs/Day Years Used Never Smoker Smokeless Tobacco: Never Used Drinks/Week oz/Week Comments Alcohol Use No Alcohol Habits Answer Date Recorded How often do you have a drink containing alcohol? Never 03/16/2018 How many drinks containing alcohol do you have on Not asked a typical day when you are drinking? How often do you have six or more drinks on one Not asked occasion? Sex Assigned at Date Recorded Not on file Industry Job Start Date Occupation Not on file Not on file Not on file Travel End Travel History Travel Start No recent travel history available. documented as of this encounter Last Filed Vital Signs Reading Time Taken Comments Vital Sign 124/78 11/16/2018 11:23 AM CDT Blood Pressure 89 11/16/2018 11:23 AM CDT Pulse 36.6 C (97.8 F) 11/16/2018 11:23 AM CDT Temperature - - Respiratory Rate - - Oxygen Saturation - - Inhaled Oxygen Concentration 117 kg (258 lb) 11/16/2018 11:23 AM CDT Weight 175.3 cm (5' 9") 11/16/2018 11:23 AM CDT Height 38.1 11/16/2018 11:23 AM CDT Body Mass Index documented in this encounter Patient Instructions * Patient Instructions* Brittany Crabtree CMA - 11/16/2018 11:30 AM CDT [facility] SECTION OF ONCOLOGY/HEMATOLOGY [phone] FAX [phone] Please note that all labs and or imaging results will be discussed at the next o ffice visit unless told otherwise. if a problem occurs after hours please contact our office and have physician disability liaison officer paged [phone] Patient Instructions: (to be completed before next visit) IR biopsy pelvic lymph node Infusion consult (carboplatin/taxol/ neulasta) TELL US ABOUT YOUR EXPERIENCE You may receive an email or letter from [facility] via our partn er, Lilliam Miller. This is a survey about your experience today. Your feedback is important to us so we can improve. If any question does not apply to your visit, please leave it blank. Our goal is to ensure you have an exceptional experience at [facility]. If for any reason you cannot rate your experience as very good, pl ease let a member of our staff know so we can make immediate improvements. Please don't hesitate to call if you have any questions or concerns before your appt. Thanks Brittany Crabtree CMA II documented in this encounter Progress Notes * Rimma Irving MD - 11/16/2018 11:30 AM CDT Chief complaint: patient with metastatic NSCLC is here for imaging result and fu rther treatment planning History of present illness/ Oncological history Stage IV NSCLC (Adenocarcinoma), BRAF V600E mutated - 05/23/2013 Initial Diagnosis -CT Chest: showed a 2.5 cm nodule in the right l ower lobe combined with a right hilar and subcarinal adenopathy. No other signif icant abnormalities. - 05/31/2013 Biopsy bronchoscopy with a right lower lobe biopsy revealed poorly di fferentiated adenocarcinoma. - 06/16/2013 - Cancer Staged: PET/CT showed a 2.5 cm right lower lobe mass. Multi ple pathologic FDG avid mediastinal and right hilar lymph nodes compatible with metastases. Nonspecific prostamegaly with nonspecific mild diffuse uptake. - 07/17/2013 bilateral [address]teral stent [address] [facility] Visit: Previously untreated d maria dolorese - 07/20/2013 - Cancer Staged: CT CHEST: The primary malignancy in the right lower lobe, appears smaller. There is multicompartmental mediastinal, right hilar and infrahilar adenopathy, that appears grossly stable. There are also a couple of prominent lymph nodes in the left supraclavicular region. - 08/10/2013 - 11/08/2013: Neoadjuvant Cisplatin, Pemetrexed x4 cycles - 11/22/2013 - 01/03/2014 Radiation: The chest was treated to 60 Gy in 30 fraction s using IMRT and 6 MV photons. - 10/16/2014 Relapse/Recurrence: increased soft tissue density right lower lobe w ithin radiation fibrosis - 10/22/2014 Biopsy: (A) LUNG, RIGHT, BIOPSY: Minute fragments of fibroconnective tissue and lung parenchyma; no tumor present - 03/26/2015 Relapse/Recurrence: PETCT: increased soft tissue density right lowe r lobe within radiation fibrosis same size as in December with SUV 22.7 - 04/25/2015 Biopsy: (A) RIGHT LUNG, CORE BIOPSY: ADENOCARCINOMA - 05/14/2015 Surgery: (A) LUNG, RIGHT UPPER LOBE, WEDGE BIOPSY: Lung parenchyma w ith ossified nodule, no tumor present. (B) LUNG, RIGHT LOWER LOBE, LOBECTOMY: AD ENOCARCINOMA, MODERATELY TO POORLY DIFFERENTIATED. TUMOR SIZE: 5.0 CM IN GREATES T DIMENSION. Pleural invasion absent. LYMPHOVASCULAR INVASION PRESENT. Bronchial, vascular and parenchymal margins: negative for tumor. Three peribronc hial lymph nodes, no tumor present (0/3). (C) LEVEL 4R LYMPH NODES: Three lymph nodes, no tumor present (0/3). (D) LEVEL 7 SUBCARINAL LYMPH NODES: One lymph nod e, no tumor present (0/1). BRAF V600E positive, PD-L1 positive (90%) 09/05/2015 Progression ? PET/CT: The patient is status post right lower lobectomy and right upper lobe wedge resection. Intense focal right hilar uptake concerning for recurrent disea se Multiple new hypermetabolic osseous lesions concerning for new osseous metast ases (L1, T9, T12) New focal opacity in the lateral aspect of the right lung is indeterminate, may be inflammatory or neoplastic ? MRI brain 09/08: metastasis to the skull base particularly involving the clivus /adjacent petrous apices is noted associated with plaque-like epidural tumor juan r t slightly indents the ventral aspect of the prepontine cistern but with no evid ence of brainstem Compression ? 09/12/2015 - 09/25/2015 Radiation Palliative XRT to T12-L2, R Iliac: 09/11-09/15 Palliative XRT to clivus and L 9th rib: 09/18-09/2410/08/2015 Progression ? PET/CT 1. Focal consolidation laterally in the right lower lung has resolved a nd presumably was infectious or inflammatory. 2. Metabolic activity that projects at the right hilum may actually be in the ne w liver metastasis. There is a 2nd small liver lesion also concerning for metast asis. 3. Renal metastases appear new from June and underappreciated on the PET/ CT. 4. Bone metastases are better evaluated at PET/CT. ? 10/24/2015 - Chemotherapy/Biotherapy/Hormonal Initiated dabrafenib-trametinib i nitiated 10/2015 and=>achieved metabolic CR Lost insurance coverage at [facility] and sought assistance at [facility]-> continued treatment w/ dabrafenib/trametinib. Went in to on 09/25/16 and discharged around 09/30/16. Amoxicillin PO started wi th two weeks left USG: renal showed L hydro, and small L stone, and R stone has disappeared - pet/ct scan (06/29/16): hypermetabolic nodes are seen in the low left neck, retr ocrural mediastinum and abdomen that are likely malignant. Strong pet/ct evidenc e for a single liver metastasis - left cervical lymph node biopsy (07/21/2016): poorly differentiated adenocarci noma -CT scan neck (08/19/2016): Stable right upper lobectomy surgical changes for re section of adenocarcinoma. No suspicious pulmonary nodules. Confluent left supra clavicular lymphadenopathy and ill-defined hepatic mass correlate with the abnor mality seen on PET/CT. Sclerotic lesion at T6 vertebral body is unchanged from P ET/CT on 06/26/2016but new since 10/08/2015 and may represent a new metastasis - CT AP 09/13/16 @ [facility]: Distal L ureteral calculus with resulting minimal L hydroureter and hydronephrosis - 09/15/16: discharged from [facility] after admitted with L flank pain, dehydra tion, acute renal disease. L ureteral stent placed. Started on Fentanyl patch 25 mcg - Keytruda 200 mg C1 09/17/16, C2 10/07, C3 10/29/16 - PET 11/16/16: Positive response to treatment with smaller liver lesion with low er uptake and resolution of level IV and retroclavicular nodes - Keytruda 200 mg C4 11/18/16, C5 /, C6 12/30/16 - PET/CT 01/18/17: Positive response to treatment, resolution of mediastinal nod e and liver lesion Saw urologist: stent changes (q3mo), did not feel that prostate bx was necessary and that testosterone was needed, on fluconazole x 10d - Keytruda 200 mg C7 01/20/17, C8 02/10, C9 03/03, C10 03/24, C11 04/20/17, C12 - 05/04/17- (SLEH)NM renal scan: L kidney shows thin rim of cortex, no tubular fun ction (12% of total renal fxn). R kidney shows some scarring but remaining renal parenchyma functions normally. Absence of net drainage of tracer from the pelvi calyceal system is worrisome for physiologically significant UPJ obstruction alt tommy. - 05/20/17 PET/CT: Interval development of hypermetabolic focus in R upper quadra nt, possibly portocaval lymph node vs caudate lobe lesion - Keytruda 200 mg C13 06/02/17, C14 06/23, C15 07/14, C16 08/04, - 08/16/17 PET/CT (petimaging): excellent response to therapy w/ respect to preum ed hypermetabolic metastatic portocaval LN, no nw suspicious upptake , new poste rior R chest SC stranding, watch, tiny nodule R lung base, new since last exam, too small to characterize by PEtCT , mod R hydronephrosis. - 09/14/17 CT chest: no report, but no consolidation - Keytruda 200 mg: C17 08/25, C18 09/15, C19 10/06 held for admission re: MULUGETA; reso lved with exchange of ureteral stents - 10/13/17 Ureteral stent exchange [facility] - Keytruda 200 mg #19 11/10, #20 12/01, #21 12/22 - 01/07/18 PET/CT: New development of R external iliac and L common iliac node, otherwise stable - Keytruda 200 mg #22 01/12, #23 02/02, #24 02/23 (on hold since February due to stent dysfunction requiring another exchange followed by pericarditis and pleura l effusion) - 03/14/18 PET/CT shows resolution of iliac nodes, likely inflammatory in nature originally as treatment had not changed. Some new nodes with mild SUV elevation (portacaval and R external iliac). small pericardial effusion and bilateral pul monary effusion noticed - admitted between 02/23/18 to 02/28/18 for MULUGETA and ureteral stent exchange. Admi tted again between 03/01-03/02/18 for pericarditis and pleural effusion treated co nservatively. Keytruda dose of 03/16/18 and 04/06/18 were held due to concern of a utoimmune process. - 03/25/18, repeat 2d echo showed resolution of pericardial effusion - keytruda resumed on 04/26/18 - PET/CT scan (07/14/18): mixed response - 09/14/18: grade 3 rash, keytruda held and started on prednisone - 10/05/18: rash improved to grade 1, keytruda received - 10/26/18: rash worsened, grade 2 now. keytruda stopped - PET/CT scan 11/11/18: disease progression with respect to the presume metastat ic lymph nodes in the abdomen and pelvis. Stable post-treatment fibrosis in the right lung. Stable mild uptake in a left posterior neck lymph node that is proba jess on a reactive basis but continued monitoring is recommended. Decreased small right pleural effusion that remains unassociated with abnormal uptake. Interval increased metabolic activity in the right adrenal gland that is progressively c oncerning for being metastatic. Interval history Patient is here with his . Rash much improved to complete prednisone taper next week Had right shoulder cutaneous lesion re-excision last week Denies new complaints since last visit PMH: Past Medical History: Diagnosis Date Adenocarcinoma of lung Borderline diabetes DVT (deep venous thrombosis) Kidney stone PSH: Past Surgical History: Procedure Laterality Date HX KYPHOSIS SURGERY HX LOBECTOMY HX TONSILLECTOMY Social history: Social History Socioeconomic History Marital status: Spouse name: Not on file Number of children: Not on file Years of education: Not on file Highest education level: Not on file Occupational History Not on file Social Needs Financial resource strain: Not on file Food insecurity: Worry: Not on file Inability: Not on file Transportation needs: Medical: Not on file Non-medical: Not on file Tobacco Use Smoking status: Never Smoker Smokeless tobacco: Never Used Substance and Sexual Activity Alcohol use: No Frequency: Never Drug use: Not on file Sexual activity: Not on file Lifestyle Physical activity: Days per week: Not on file Minutes per session: Not on file Stress: Not on file Relationships Social connections: Talks on phone: Not on file Gets together: Not on file Attends scientologist service: Not on file Active member of club or organization: Not on file Attends meetings of clubs or organizations: Not on file Relationship status: Not on file Intimate partner violence: Fear of current or ex partner: Not on file Emotionally abused: Not on file Physically abused: Not on file Forced sexual activity: Not on file Other Topics Concerns: Not on file Social History Narrative Not on file Family history: Family History Problem Relation Name Age of Onset Prostate Cancer Father Medications: Outpatient Medications Prior to Visit Medication Sig Dispense Refill aspirin Take 81 mg by mouth daily. B Fetuhlx-P-L-Zn (MYBEC OR) Take by mouth daily. clobetasol Apply topically twice a day as needed (Patient not taking: Report ed on 11/16/2018) 50 mL 11 finasteride Take 5 mg by mouth daily. levothyroxine Take 75 mcg by mouth daily. liothyronine Take 25 mcg by mouth daily. Take 2 tabs once daily loratadine Take 10 mg by mouth daily as needed. NIFEdipine Take 30 mg by mouth daily. pravastatin Take 40 mg by mouth daily. predniSONE 4 tabs by mouth for 7 days then 3 for 7 days then 2 for 7 days th en 1 for 7 days then 1/2 tab for 7 days 80 Tab 2 senna Take 2 tabs by mouth daily 60 Tab 4 Tamsulosin HCl Take 0.4 mg by mouth daily. Take 2 tabs by mouth daily triamcinolone Apply to affected area twice a day as needed (Patient lebron aquino: Reported on 11/16/2018) 454 g 3 VALACYCLOVIR HCL OR Take by mouth. 1/2 tab daily No facility-administered medications prior to visit. Review of system: Review of Systems Constitutional: Positive for malaise/fatigue (mild unchanged). HENT: Negative. Eyes: Negative. Respiratory: Positive for cough (dry ). Negative for hemoptysis, sputum producti on, shortness of breath and wheezing. Cardiovascular: Negative. Gastrointestinal: Negative. Genitourinary: Negative. Musculoskeletal: Negative. Skin: Positive for rash (much improved). Neurological: Negative. Endo/Heme/Allergies: Negative. Psychiatric/Behavioral: Negative. Physical exam: Physical Exam Constitutional: He is oriented to person, place, and time. He appears well-devel oped and well-nourished. No distress. ECOG PS 1 HENT: Head: Normocephalic and atraumatic. Mouth/Throat: No oropharyngeal exudate. Eyes: Pupils are equal, round, and reactive to light. Conjunctivae are normal. N o scleral icterus. Neck: Normal range of motion. Neck supple. No JVD present. Cardiovascular: Normal rate, regular rhythm and normal heart sounds. Exam reveal s no gallop and no friction rub. No murmur heard. Pulmonary/Chest: Effort normal and breath sounds normal. No respiratory distress . He has no wheezes. He has no rales. He exhibits no tenderness. Abdominal: Soft. Bowel sounds are normal. He exhibits no distension and no mass. There is no tenderness. There is no rebound and no guarding. Musculoskeletal: Normal range of motion. He exhibits edema (1+ pitting edema on LEs). Lymphadenopathy: He has no cervical adenopathy. Neurological: He is alert and oriented to person, place, and time. No cranial ne rve deficit. Skin: Skin is warm. Rash (much improved) noted. No pallor. Psychiatric: He has a normal mood and affect. Vital signs: Vitals: 11/16/18 1123 BP: 124/78 BP Location: left arm Patient Position: Sitting Pulse: 89 Temp: 97.8 F (36.6 C) TempSrc: Oral Weight: 258 lb (117 kg) Height: 5' 9" (1.753 m) Labs: Results for orders placed or performed in visit on 03/16/18 CBC W/AUTO DIFF WITH PLATELETS Result Value WHITE BLOOD CELL COUNT 7.9 RED BLOOD CELL COUNT 4.45 HEMOGLOBIN 12.2 (L) HEMATOCRIT 37.7 MEAN CORPUSCULAR VOLUME 84.7 MEAN CORPUSCULAR HEMOGLOBIN 27.4 MEAN CORPUSCULAR HEMOGLOBIN CONC 32.4 RED CELL DISTRIBUTION WIDTH 17.5 (H) NEUTROPHILS % 83 (H) BANDS % 4 LYMPHOCYTES % 2 (L) MONOCYTES % 8 EOSINOPHILS % 1 BASOPHILS % 0 METAMYELOCYTES PERCENT 1 (H) MYELOCYTES % 1 (H) PLATELET COUNT 224 COMMENTS (NOTE) Results for orders placed or performed in visit on 03/16/18 COMPREHENSIVE METABOLIC PANEL Result Value GLUCOSE 96 BLOOD UREA NITROGEN 68 (H) CREATININE 6.98 (H) EGFR AA 9 (L) EGFR 8 (L) BUN/CREAT RATIO 10 SODIUM 137 POTASSIUM 4.9 CHLORIDE 108 CO2 15 (L) CALCIUM 8.9 PROTEIN TOTAL 6.3 ALBUMIN 3.6 GLOBULINS, SERUM, TOTAL 2.7 A/G RATIO 1.3 BILIRUBIN TOTAL 0.3 ALKALINE PHOSPHATASE 83 AST (SGOT) 19 ALT (SGPT) 14 Assessment and plan: Stage 4 BRAF-mutant NSCLC (adenocarcinoma) Diagnosed in 2013 w/ locally advanced disease s/p neoadjuvant cisplatin/pemetrex ed, chest XRT, local recurrence s/p RLL lobectomy/LN dissection, recurrence with bony mets s/p palliative bone XRT, s/p dabrafenib/trametinib with initial good response then failure in lymph nodes, now on Keytruda since August 2016 with initi ally good disease control 2 doses of keytruda were held (03/16/18 and 04/06/18) due to pericarditis. However given the self resolution of pericarditis that occurred in the context of acute renal failure it was felt that it is not auto-immune and after discussion with the patient he was agreeable to resume treatment keytruda resumed on 04/26/18 with PET/CT scan from 07/14/18 showed mixed response in favor of some progression in right iliac lymph node. Given that he was asymptomatic from his disease and possibility of pseudoprogres robert or inflammation changes decision was to continue with keytruda keytruda held on 09/14/18 due to grade 3 rash felt to be related to immunotherap y Rash improved to grade 1 on prednisone and keytruda received on 10/05/18 rash got worse after re-challenge with keytruda Report and images of PET/CT scan from 11/11/18 was reviewed with the patient, morena king disease progression in abdominal and pelvic lymph nodes Discontinue keytruda (disease progression, >2 years, and poor tolerance). Refer to IR for biopsy for tissue confirmation and molecular Not candidate for pemetrexed given poor renal function Discussed referral to [facility] for evaluation for clinical trials, stated his insuran ce doesn't cover. Also given his poor renal function unlikely will be candidate for clinical trial Discussed option of palliative carboplatin and taxol with neulasta support if bi opsy shows lung cancer, which is very highly suggestive to be. Risks, benefits, palliative intent of chemotherapy, prognosis, no guarantee of r esponse, treatment calendar explained in details to the patient. Handout on carb o/taxol provided to patient If good response options include evaluation for consolidative xrt, surveillance or single agent gemcitabine maintenance No bevacizumab given renal failure and frequent instrumentations. Plan of care discussed with patient and and they are in agreement to pursue the above plan. Will consent the patient for chemo with next visit. rtc in 3 weeks Drug-related rash Grade 3 initially keytruda related Improved initially on prednisone and holding keytruda Got worse when re-challenged with keytruda Much improved On prednisone taper Followed by dermatology Hydronephrosis w/ eval showing ureter stricture w/ renal insufficiency Followed by urology and nephrology Getting stent exchanged at short interval Creatinine today is 3.22 Continue f/u with nephrology and urology Anemia Chronic Asymptomatic Will monitor Cutaneous lesion S/p excision left upper back lesion (10/26/18): Scar with biopsy site changes. No residual atypical melanocytic proliferation S/p right shoulder lesion shave biopsy (10/26/18): positive invasive squamous ce ll carcinoma. Right shoulder re-excision on (11/08/18) showed residual SCC, negative margins Follow-up by dermatology, has appt on 11/22 All questions answered to patient and his up to their satisfaction Amount of face to face was 40 minutes more than half spent in counseling and car e coordination Rimma Irving MD FACP [employer] Hematology-Oncology [facility] 11/16/18 documented in this encounter Plan of Treatment Care Team Description Date Type Specialty Adelia Rubi MD [address] [facility] 6th Floor, [address] [place] [address] [phone] 11/22/2018 Office Visit Dermatology Rimma Irving MD [address] [place], [place] [address] 12/07/2018 Office Visit Hematology and Oncology Silvia Larose MD [address] [facility] [address]th [address] [place], [place] [address] 02/06/2019 Office Visit Dermatology Order Schedule Name Type Priority Associated Diagnoses 1 Occurrences starting 11/16/2018 until 11/17/2019 IR FLUOROSCOPY GUIDED Imaging Routine Metastatic non-small cell NEEDLE PLACEMENT lung cancer Order Schedule Name Type Priority Associated Diagnoses Ordered: 11/16/2018 AMB REF TO INFUSION Outpatient Routine Metastatic non-small cell CENTER Referral lung cancer Health Maintenance Due Date Last Done Comments TETANUS SHOT (ADULT) 1973 BMI FOLLOW UP PLAN 1976 HIV SCREENING 1976 FLU VACCINE > 6 MONTHS 10/27/2018 COLON CANCER SCREENIN07/30/2021 07/30/2016 COLONOSCOPY HEPATITIS C SCREENING Completed 08/19/2016 documented as of this encounter Results Not on filedocumented in this encounter Visit Diagnoses Diagnosis Metastatic non-small cell lung cancer - Primary documented in this encounter Insurance Type Payer Benefit Subscriber ID Effective Phone Address Plan / Dates Group O HistoryFile BLUE Tindie BLUE xxxxxxxxxxxx 2017-P [address] resent [id number] [employer] [facility] - [phone] BCBS documented as of this encounter
--- OUTSIDE RECORDS SUMMARY | 2018-12-09 10:06 | XMS REPORT | Clinical Summary ---
Author Author [facility] [place] [facility] Address Unknown Phone Unavailable Care Team Providers Care Vp Genetic Name Role Phone Robi Card PCP Allergies Comments Active Allergy Reactions Severity Noted Date Makes Nausea WORSE Promethazine 07/21/2016 "MY LIPS SWELL WITH TINGLING" Ceftriaxone Swelling High 12/05/2018 Medications End Date Status Medication Sig Dispensed [...] 0 IV) intravenously once every 3 weeks. 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 Last Filed Vital Signs Time Taken Vital Sign Reading 12/05/2018 4:20 PM CDT Blood Pressure 141/86 12/05/2018 4:20 PM CDT Pulse 87 12/05/2018 3:35 PM CDT Temperature 36.7 C (98 F) 12/05/2018 4:20 PM CDT Respiratory Rate 18 12/05/2018 4:20 PM CDT Oxygen Saturation 99% - Inhaled Oxygen - Concentration 12/05/2018 11:31 AM CDT Weight 115.7 kg (255 lb) 12/05/2018 11:31 AM CDT Height 175.3 cm (5' 9") 12/05/2018 11:31 AM CDT Body Mass Index 37.66 Plan of Treatment Not on file Implants Device Identifier Shelf Expiration Date Model / Serial / Lot Implanted Type Area Manufactur er 10/01/2019 192-143 / / [id number] Stent Uret Ult Steven [id number] 192-143 - Uro Stent Right: Ureter [employer] [id number] SCI:UROLOG Implanted: Qty: 1 on 10/13/2017 by Y/Jorge Lau MD GY 11/28/2017 192-143 / / [id number] Stent Uret Ult Steven [id number] 192-143 - Uro Stent Right: Ureter [employer] [id number] SCI:UROLOG Implanted: Qty: 1 on 10/13/2017 by Tashia/Jorge Lau MD GY 02/17/2018 [id number] / / [id number] Stent Uret Cntour Inj [id number] Uro Stent Left: Ureter DENISE [id number] - [id number] SCI:UROLOG Implanted: Qty: 2 on 10/13/2017 by Y/Jorge Lau MD GY Procedures Comments Procedure Name Priority Date/Time Associated Diagnosis CT GUIDED BIOPSY ABDOMEN Routine 12/05/2018 Adenocarcinoma of lung, 3:39 PM CDT right (HCC) 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 Dose modulation, iterative reconstruction, and/or weight-based adjustment of the mA/kV was utilized to reduce the radiation dose to as low as reasonably achievable. INDICATION: Right pelvic lymphadenopathy. COMPARISON: Prior outside facility PET/CT. SEDATION: Intravenous moderate sedation was administered by radiology nursing and monitored under the direction of the undersigned radiologist. The patient's vital signs were monitored throughout the procedure and recorded in the patient's medical record by radiology nursing. Total intraservice time of sedation was 45 minutes. MEDICATIONS: 1.5 mg Versed, 75 mcg fentanyl DESCRIPTION: After obtaining informed written consent, the patient was brought to the procedure room and placed in the supine position. Preliminary CT scan revealed right pelvic lymphadenopathy. The more inferior right external iliac lymph node was targeted for biopsy. The overlying skin was prepped and draped in the usual, sterile fashion and local 2% lidocaine anesthesia was administered. Under CT guidance, a 19-gauge introducer needle was placed into the right iliac lymph node, and four 20-gauge biopsies were obtained. These biopsies were placed in formalin. Follow-up exam revealed no evidence for hematoma. There were no immediate complications. IMPRESSION: Successful core biopsy of a right external iliac lymph node. Signed: Wale Pat MD Report Verified Date/Time:12/05/2018 21:10:25 Reading Location: [address] Body Reading Room Procedure Note Interface, External Ris In - 12/05/2018 9:12 PM CDT FINAL REPORT PROCEDURE: CT guided core biopsy of a right pelvic lymph node. Dose modulation, iterative reconstruction, and/or weight-based adjustment of the mA/kV was utilized to reduce the radiation dose to as low as reasonably achievable. INDICATION: Right pelvic lymphadenopathy. COMPARISON: Prior outside facility PET/CT. SEDATION: Intravenous moderate sedation was administered by radiology nursing and monitored under the direction of the undersigned radiologist. The patient's vital signs were monitored throughout the procedure and recorded in the patient's medical record by radiology nursing. Total intraservice time of sedation was 45 minutes. MEDICATIONS: 1.5 mg Versed, 75 mcg fentanyl DESCRIPTION: After obtaining informed written consent, the patient was brought to the procedure room and placed in the supine position. Preliminary CT scan revealed right pelvic lymphadenopathy. The more inferior right external iliac lymph node was targeted for biopsy. The overlying skin was prepped and draped in the usual, sterile fashion and local 2% lidocaine anesthesia was administered. Under CT guidance, a 19-gauge introducer needle was placed into the right iliac lymph node, and four 20-gauge biopsies were obtained. These biopsies were placed in formalin. Follow-up exam revealed no evidence for hematoma. There were no immediate complications. IMPRESSION: Successful core biopsy of a right external iliac lymph node. Signed: Wale Pat MD Report Verified Date/Time: 12/05/2018 21:10:25 Reading Location: [address] Body Reading Room Performing Organization Address City/State/Zipcode Phone Number GE RIS * Tissue Exam (12/05/2018 3:23 PM CDT) Case Report Surgical Pathology [facility] Report [facility] Case: [id number] Authorizing Provider:Rimma Irving MDCollected: 12/05/2018 1523 Ordering Location: [facility] Radiology Cat Scan Received: 12/05/2018 8484 Pathologist: Giovanna Thomas MD Specimen:Lymph Node, Pelvic, Right DIAGNOSIS LYMPH NODE, RIGHT PELVIC, [facility] CT-GUIDED CORE BIOPSY: [facility] - METASTATIC POORLY DIFFERENTIATED ADENOCARCINOMA, COMPATIBLE WITH LUNG PRIMARY (SEE COMMENT) Signing Pathologist Direct Phone Line: [phone] COMMENT The tumor cells are positive [facility] for TTF-1 and Napsin A. The [facility] morphology and immunoprofile are compatible with metastatic adenocarcinoma, lung primary. CPT Code(s) 36538; 8342; 00416 [facility] GROSS DESCRIPTION The specimen is received in a [facility] single part labeled with the [facility] patient's name, date of , accession number all of which match the information provided on the requisition slip. A. Received in formalin in a container labeled "pelvic lymph node, right" are multiple pieces of rodriguez-yellow to rodriguez-pink tissue ranging in size between 0.1 x 0.1 x 0.1 cm to 0.9 x 0.1 x 0.1 cm. Submitted entirely in cassette A1. EC/pl MICROSCOPIC DESCRIPTION Performed [facility] SPECIAL STUDIES The interpretation of this [facility] case included the use of [facility] immunohistochemistry or special stains. TTF-1 and Napsin A Control Slides Examined: In-house known positive controls were evaluated along with the test tissue. These control slides run alongside of the patients sample show appropriate staining. Internal positive and negative controls when available are evaluated Immunohistochemistry technical testing was performed at [facility] Pathology Laboratory where it was developed and its performance characteristics were determined. It has not been cleared or approved by the U.S. Food and Drug Administration. The FDA has determined that such clearance or approval is not necessary. The test is used for clinical purposes. It should not be regarded as investigational or for research. This laboratory is certified under the Clinical Laboratory Improvement Amendments of 1988 (CLIA-88) as qualified to perform high complexity clinical laboratory testing. Specimen Tissue - Lymph Node, Pelvic, Right Performing Organization Address City/State/Zipcode Phone Number [facility] [address] [place] [address] [facility] * CBC with platelet count + automated diff (12/05/2018 10:57 AM CDT) WBC 6.7 3.5 - 10.5 K/L [facility] RBC 4.55 (L) 4.63 - 6.08 M/L [facility] Hemoglobin 12.5 (L) 13.7 - 17.5 GM/DL [facility] Hematocrit 40.6 40.1 - 51.0 % [facility] MCV 89.2 79.0 - 92.2 fL [facility] MCH 27.5 25.7 - 32.2 pg [facility] MCHC 30.8 (L) 32.3 - 36.5 GM/DL [facility] RDW 15.2 (H) 11.6 - 14.4 % [facility] Platelets 139 (L) 150 - 450 K/CU MM [facility] MPV 8.7 (L) 9.4 - 12.4 fL [facility] nRBC 0 0 - 0 /100 WBC [facility] % Neutros 74 % [facility] % Lymphs 8 % [facility] % Monos 12 % [facility] % Eos 4 % [facility] % Baso 0 % [facility] # Neutros 4.96 1.78 - 5.38 K/L [facility] # Lymphs 0.51 (L) 1.32 - 3.57 K/L [facility] # Monos 0.81 0.30 - 0.82 K/L [facility] # Eos 0.26 0.04 - 0.54 K/L [facility] # Baso 0.03 0.01 - 0.08 K/L [facility] Immature 2 (H) 0 - 1 % [facility] Granulocytes-[facility] Specimen Blood Performing Organization Address City/[facility] Phone Number [place] [phone] * aPTT (12/05/2018 10:57 AM CDT) PTT 30.0 22.5 - 36.0 seconds [facility] Specimen Blood Performing Organization Address City/[facility] [place] [place] [address] [phone] [place] [address] * Prothrombin time/INR (12/05/2018 10:57 AM CDT) Protime 13.2 11.9 - 14.2 seconds [facility] INR 1.1 <=5.9 [facility] Specimen Blood Narrative Performed At Effective 08/24/2018: PT Reference Range Change [facility] New: 11.9-14.2Previous: 11.7-14.7 [facility] RECOMMENDED COUMADIN/WARFARIN INR THERAPY RANGES STANDARD DOSE: 2.0-3.0Includes: PROPHYLAXIS for venous thrombosis, systemic embolization; TREATMENT for venous thrombosis and/or pulmonary embolus. HIGH RISK: Target INR is 2.5-3.5 for patients wiht mechanical heart valves. Performing Organization Address City/[facility] Phone Number [address] [address] [facility] * Basic Metabolic Panel (12/05/2018 10:57 AM CDT) Sodium 145 136 - 145 meq/L [facility] Potassium 4.5 3.5 - 5.1 meq/L [facility] Chloride 114 (H) 98 - 107 meq/L [facility] CO2 23 22 - 29 meq/L [facility] BUN 40 (H) 7 - 21 mg/dL [facility] Creatinine 4.25 (H) 0.57 - 1.25 mg/dL [facility] Glucose 93 70 - 105 mg/dL [facility] Calcium 9.4 8.4 - 10.2 mg/dL [facility] EGFR 14Comment: ESTIMATED GFR IS mL/min/1.73 sq m [facility] NOT ACCURATE CREATININE [facility] CLEARANCE IN PREDICTING GLOMERULAR FILTRATION RATE. ESTIMATED GFR IS NOT APPLICABLE FOR DIALYSIS PATIENTS. Specimen Blood Performing Organization Address City/State/Zipcode Phone Number [facility] [address] [place], [place] [phone] [facility] after 12/08/2017 Insurance Payer Benefit Subscriber ID Type Phone Address Plan / Group BLUE CROSS/BLUE SHIELD BCBS ADV xxxxxxxxxxxx [phone] [address] [place] [address] EXCHANGE Advance Directives For more information, please contact: [address] [phone] Date Inactivated Comments Code Status Date Activated 10/15/2017 8:46 PM Full Code 10/06/2017 11:02 PM This code status was determined by: Patient
--- OUTSIDE RECORDS SUMMARY | 2018-12-09 10:06 | XMS REPORT | Summary of Care ---
Author Author [facility] Organization 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 rt shoulder rt shoulder P rocedures SR1 AND REPAIR Reason for Visit * Reason Comments Remove Sutures Left shoulder Encounter Details Care Team Description Date Type Department Adelia Rubi MD [address] [place] [address] 6th Floor, [address] [place] [address] [phone] Remove Sutures (Left shoulder) 11/08/2018 Office Visit [facility] Dermatology [address] [place], [place] [address] [address] [place] [phone] Allergies Comments Active Allergy Reactions Severity Noted Date Makes nausea worse Makes nausea worse Promethazine Nausea And 06/05/2015 Vomiting tingling lips Ceftriaxone Sodium In 03/16/2018 Dextrose documented as of this encounter (statuses as of 11/08/2018) Medications End Date Status Medication Sig Dispensed [...] Gastroesophageal reflux disease without esophagitis Active B Efbbrkm-N-J-Zn (MYBEC Take by 0 OR)Indications: Malignant mouth [...] as of this encounter (statuses as of 11/08/2018) Active Problems Problem Noted Date Renal insufficiency [...] Signed by Andreina Tang MD on 09/25/2017 documented as of this encounter (statuses as of 11/08/2018) Resolved Problems Problem Noted Date Resolved Date 6th nerve palsy 09/17/2015 09/25/2017 documented as of this encounter (statuses as of 11/08/2018) Social History Date Tobacco Use Types Packs/Day [...] of this encounter Last Filed Vital Signs Not on filedocumented in this encounter Progress Notes * Adelia Rubi MD - 11/08/2018 3:00 PM CDT S/p exc 2 weeks ago for severly dys nev on left upper back Path: clear SPECIMEN SUBMITTED: Skin; left upper back, excision DIAGNOSIS: Skin and subcutaneous tissue, left upper back, re-excision - Scar with biopsy site changes - No residual atypical melanocytic proliferation Site looks great No evidence of infection or recurrence S/r F/u 6m Patient also scheduled for mohs for scc on right shoulder Will excise today documented in this encounter Plan of Treatment Care Team Description Date Type Specialty Adelia Rubi MD [address] [place] [address] 6th Floor, [address] [place] [address] Skin Lesion (SR1 ON RIGHT SHOULDER) 11/08/2018 Procedure visit Dermatology Rimma Irving MD [address] [facility] [address] [place] [address] [phone] 11/16/2018 Office Visit Hematology and Oncology 12, [facility] Chair [address] [facility] 7th Floor, [address] [place] [address] 11/16/2018 Appointment Infusion Center Silvia Larose MD [address] [facility] 6th Floor,[address] [place], [place] [id number] [phone] 02/06/2019 Office Visit Dermatology Order Schedule Name Type Priority Associated Diagnoses Ordered: 11/08/2018 SR1 AND REPAIR Dermatology Routine Squamous cell carcinoma of right shoulder Health Maintenance Due Date Last Done Comments TETANUS SHOT (ADULT) 1973 BMI FOLLOW UP PLAN 1978 HIV SCREENING 1978 FLU VACCINE > 6 MONTHS 10/27/2018 COLON CANCER SCREENIN07/30/2021 07/30/2016 COLONOSCOPY HEPATITIS C SCREENING Completed 08/19/2016 documented as of this encounter Results Not on filedocumented in this encounter Visit Diagnoses Diagnosis 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
--- OUTSIDE RECORDS SUMMARY | 2018-12-09 10:06 | XMS REPORT | Summary of Care ---
Author Author [facility] Organization [facility] Address Unknown Phone Unavailable Care Team Providers Care Rescue Worker Name Role Phone Robi Card PCP Reason for Visit * Reason Comments Post-op Follow-up suture removal Encounter Details Care Team Description Date Type Department Adelia Rubi MD [address] [facility] 6th Floor, [address] [place] [address] Post-op Follow-up (suture removal) 11/22/2018 Office Visit [facility] Dermatology [address] [facility] [place] [address] [place] [address] Allergies Comments Active Allergy Reactions Severity Noted Date Makes nausea worse Makes nausea worse Promethazine Nausea And 06/05/2015 Vomiting tingling lips Ceftriaxone Sodium In 03/16/2018 Dextrose documented as of this encounter (statuses as of 11/22/2018) Medications End Date Status Medication Sig Dispensed [...] Gastroesophageal reflux disease without esophagitis Active B Krwobrg-S-D-Zn (MYBEC Take by 0 OR)Indications: Malignant mouth [...] as of this encounter (statuses as of 11/22/2018) Active Problems Problem Noted Date Renal insufficiency [...] as of this encounter (statuses as of 11/22/2018) Resolved Problems Problem Noted Date Resolved Date 6th nerve palsy 09/17/2015 09/25/2017 documented as of this encounter (statuses as of 11/22/2018) Social History Date Tobacco Use Types Packs/Day [...] Progress Notes * Adelia Rubi MD - 11/22/2018 3:00 PM CDT November 22, 2018 RE: Paulo Wolf : 1960 Mr. Wolf is 2 weeks S/P Mohs Micrographic surgery for: SCC of the right shoulder . The patient's defect was repaired in our clinic with: a complex linear closure. The patient reports being pleased with the cosmetic result. PE: The incision is well healed. Mild erythema around the incision site. No indurati on, pus or other signs of soft tissue infection. Impression: S/P Mohs Micrographic Surgery with good cosmetic and functional results. Plan: S/R on right shoulder. No signs of soft tissue infection. S/S placed. For pruritus at the surgical site, recommended Curad scar revision bandage to be re-used for 2 weeks. Follow-Up in: 6 months for skin check documented in this encounter Plan of Treatment Care Team Description Date Type Specialty Rimma Irving MD [address] [facility] [address] [place] [address] 12/07/2018 Office Visit Hematology and Oncology Silvia Larose MD [address] [place] [address] 6th Floor,[address] [place] [address] [phone] 02/06/2019 Office Visit Dermatology Health Maintenance Due Date Last Done Comments TETANUS SHOT (ADULT) 1973 BMI FOLLOW UP PLAN 1976 HIV SCREENING 1976 FLU VACCINE > 6 MONTHS 10/27/2018 COLON CANCER SCREENIN07/30/2021 07/30/2016 COLONOSCOPY HEPATITIS C SCREENING Completed 08/19/2016 documented as of this encounter Results Not on filedocumented in this encounter Visit Diagnoses Diagnosis Visit for suture removal - Primary Encounter for removal of sutures documented in this encounter Insurance Type Payer Benefit Subscriber ID Effective Phone Address Plan / Dates Group [facility] [employer] BLUE SHIELD BLUE xxxxxxxxxxxx 2017-P [address] resent [phone] [employer] [facility] - [phone] BCBS documented as of this encounter
--- OUTSIDE RECORDS SUMMARY | 2018-12-09 10:06 | XMS REPORT | Clinical Summary ---
Author Author [facility] Address Unknown Phone Unavailable Care Team Providers Care Laundry Folder Name Role Phone Asked, No Pcp PCP [...] BY 6 hr tablet MOUTH DAILY. Active jhkdheqs-ynqzuesyw-[id number] INSTILL ONE 0 thasone (MAXITROL) (1) DROP [...] Day Smoker Cigarettes Smokeless Tobacco: Never Used Drinks/Week oz/Week Comments Alcohol Use No Sex Assigned at Date Recorded Not on file Industry Job Start Date Occupation Not on file Not on file Not on file Travel End Travel History Travel Start No recent travel history available. Last Filed Vital Signs Not on file Plan of Treatment Not on file Results Not on fileafter 12/08/2017 Insurance Type Payer Benefit Subscriber ID Effective Phone Address Plan / Dates Group Exchange HUMANA EXCHANGE HUMANA PPO xxxxxxxxx 2015-P EXCHANGE resent HMO HUMANA HUMANA xxxxxxxxx 2015-P HMO/POS/EP resent O/OPEN ACCESS Advance Directives For more information, please contact: [phone] Patient Industrial Safety And Health Manager Explanation Type Date Recorded Advance Directives, Living Will and Medical Power of Truck Mechanic
--- OUTSIDE RECORDS SUMMARY | 2018-12-09 10:07 | XMS REPORT | Summary of Care ---
Author Author [facility] Organization [facility] Address Unknown Phone Unavailable Care Team Providers Care Emergency Crew Supervisor Name Role Phone Robi Card PCP Reason for Visit * Reason Comments Lung Cancer Chemotherapy Encounter Details Care Team Description Date Type Department Rimma Irving MD [address] [place] [address] Lung Cancer; Chemotherapy 12/07/2018 Office Visit [facility] [address] 7th [address], [address] [place] [address] Allergies Comments Active Allergy Reactions Severity Noted Date Makes nausea worse Makes nausea worse Promethazine Nausea And 06/05/2015 Vomiting tingling lips Ceftriaxone Sodium In 03/16/2018 Dextrose documented as of this encounter (statuses as of 12/07/2018) Medications End Date Status Medication Sig Dispensed Refills Start Date Active pravastatin (PRAVACHOL) Take 40 mg by 0 40 MG tabletIndications: mouth daily. Malignant neoplasm of right lung, unspecified part of lung (HCCode) Active loratadine (CLARITIN) 10 Take 10 mg by 0 MG tabletIndications: mouth daily Malignant neoplasm of as needed. right lung, unspecified part of lung (HCCode) Active Tamsulosin HCl 0.4 MG Take 0.4 mg 0 CAPSIndications: by mouth Malignant neoplasm of daily. Take 2 lower lobe, right tabs by mouth bronchus or lung daily (HCCode), Gastroesophageal reflux disease without esophagitis Active B Zczkeix-W-M-Zn (MYBEC Take by 0 OR)Indications: Malignant mouth daily. neoplasm of lower lobe, right bronchus or lung (HCCode) Active liothyronine (CYTOMEL) 25 Take 25 mcg 0 MCG tabletIndications: by mouth Adenocarcinoma of lung, daily. Take 2 right (HCCode) tabs once daily Active aspirin 81 MG Take 81 mg by 0 tabletIndications: mouth daily. Adenocarcinoma of lung, right (HCCode), Cancer related pain Active senna (RA SENNA) 8.6 MG Take 2 tabs 60 Tab 4 tabletIndications: by mouth 8 Adenocarcinoma of lung, daily right (HCCode), Other constipation Active finasteride (PROSCAR) 5 Take 5 mg by 0 MG tabletIndications: mouth daily. Adenocarcinoma of lung, right (HCCode) Active levothyroxine (SYNTHROID) Take 75 mcg 0 75 MCG tabletIndications: by mouth Adenocarcinoma of lung, daily. right (HCCode) Active VALACYCLOVIR HCL OR Take by 0 [...] area 9 twice a day as needed Active triamcinolone (KENALOG) Apply to 454 g 3 0.1 % ointment affected area 9 2 times daily. Avoid face/groin/ax illae Active ondansetron (ZOFRAN) 4 MG Take 1 Tab by 15 Tab 3 tablet mouth every 8 9 hours as needed for Nausea. 12/07/2018 Active Pegfilgrastim (NEULASTA) Inject 6 mg 6 mg 5 6 MG/0.6ML injection into the skin 9 once for 1 dose. 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 (HCCode) 12/02/2018 Renal insufficiency 10/06/2017 History of immunotherapy 06/23/2017 Cancer related pain 02/10/2017 Nephrolithiasis 08/28/2016 Enlarged lymph node in neck 07/16/2016 Liver mass 07/01/2016 Overview: 3.4 cm on pet/ct 06/26/16 AK (actinic keratosis) 06/15/2016 Keratosis seborrheica 06/15/2016 Lentigines 06/15/2016 Multiple nevi 06/15/2016 Binocular vision disorder with diplopia 03/13/2016 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 Convergent squint 02/12/2016 Adenocarcinoma of lung, right (HCCode) 04/03/2015 Cancer Staging: Clinical stage from 05/23/2013: Stage IIIA (T1b, N2, M0) - Signed by Andreina Tang MD on 09/25/2017 Metastatic non-small cell lung cancer (HCCode) documented as of this encounter (statuses as of 12/07/2018) Resolved Problems Problem Noted Date Resolved Date 6th nerve palsy 09/17/2015 09/25/2017 documented as of this encounter (statuses as of 12/07/2018) Social History Date Tobacco Use Types Packs/Day [...] Signs [place] Time Taken Comments Vital Sign 129/78 12/07/2018 8:22 AM CDT Blood Pressure 110 12/07/2018 8:22 AM CDT Pulse 36.4 C (97.6 F) 12/07/2018 8:22 AM CDT Temperature - - Respiratory Rate - - Oxygen Saturation - - Inhaled Oxygen Concentration 117.9 kg (260 lb) 12/07/2018 8:22 AM CDT Weight 175.3 cm (5' 9") 12/07/2018 8:22 AM CDT Height 38.4 12/07/2018 8:22 AM CDT Body Mass Index documented in this encounter Patient Instructions * Patient Instructions* Karly Watkins RN - 12/07/2018 8:30 AM CDT [facility] SECTION OF ONCOLOGY/HEMATOLOGY [phone] FAX [phone] Please note that all labs and or imaging results will be discussed at the next o ffice visit unless told otherwise. if a problem occurs after hours please contact our office and have physician furnace combustion analyst paged [phone] Patient Instructions: (to be completed before next visit) Chemo today neulasta tomorrow Prescription for neulasta to be processed by Molly heck prescription sent to pharmacy Labs in 1 week: cbc, cmp, mag Please don't hesitate to call if you have any questions or concerns before your appt. TELL US ABOUT YOUR EXPERIENCE You may receive an email or letter from [facility] via our partn er, Lilliam Miller. This is a survey about your experience today. Your feedback is important to us so we can improve. If any question does not apply to your visit, please leave it blank. Our goal is to ensure you have an exceptional experience at [facility]. If for any reason you cannot rate your experience as very good, pl ease let a member of our staff know so we can make immediate improvements. Best Regards, Karly Watkins RN documented in this encounter Progress Notes * Rimma Irving MD - 12/07/2018 8:30 AM CDT Chief complaint: patient with metastatic NSCLC is here for biopsy results and po ssible chemotherapy History of present illness/ Oncological history Stage [...] uptake. - 07/17/2013 bilateral ureteral stent Initial [facility] Visit: Previously untreated daniel bailon - 07/20/2013 - Cancer Staged: CT CHEST: [...] and=>achieved metabolic CR Lost insurance coverage at [facility] and sought assistance at [facility]-> continued treatment w/ dabrafenib/trametinib. Went in to [facility] on 09/25/16 and discharged around 09/30/16. Amoxicillin [...] new metastasis - CT AP 09/13/16 @ [facility] [place]: Distal L ureteral calculus with resulting minimal L hydroureter and hydronephrosis - 09/15/16: discharged from [facility] after admitted with L flank pain, dehydra tion, acute renal disease. L ureteral stent placed. Started on Fentanyl patch 25 mcg - Keytruda 200 mg C1 09/17/16, C2 10/07, C3 10/29/16 - PET 11/16/16: Positive response to treatment with smaller liver lesion with low er uptake and resolution of level IV and retroclavicular nodes - Keytruda 200 mg C4 11/18/16, C5 12/09, C6 12/30/16 - PET/CT 01/18/17: Positive response [...] ureteral stents - 10/13/17 Ureteral stent exchange [facility] - Keytruda 200 mg #19 11/10, #20 [...] is progressively c oncerning for being metastatic. - CT guided biopsy right pelvic lymph node (12/05/18): metastatic poorly differe ntiated adenocarcinoma compatible with lung primary, TTF1 and napsin A stain pos itive Interval history Patient is here with his . Had right pelvic lymph node biopsy on Wednesday Had a little rebound of the rash managed by ointment steroid, not as bad as init ially No other major complaints PMH: Past Medical History: Diagnosis Date Adenocarcinoma of lung (HCCode) Borderline diabetes DVT (deep venous thrombosis) (HCCode) Kidney stone PSH: Past Surgical History: Procedure [...] file Gets together: Not on file Attends church service: Not on file Active member of [...] Take 81 mg by mouth daily. B Rafxckl-T-K-Zn (MYBEC OR) Take by mouth daily. clobetasol Apply topically twice a day as needed 50 mL 11 finasteride Take 5 mg [...] days then 1/2 tab for 7 days (Patient not taking: Reported on 12/08/19 19) 80 Tab 2 senna Take 2 tabs by mouth daily 60 Tab 4 Tamsulosin HCl Take 0.4 mg by mouth daily. Take 2 tabs by mouth daily triamcinolone Apply to affected area twice a day as needed 454 g 3 triamcinolone Apply to affected area 2 times daily. Avoid face/groin/axillae 454 g 3 VALACYCLOVIR HCL OR Take by mouth. 1/2 tab daily No facility-administered medications prior to visit. Review of system: Review of Systems Constitutional: Positive for malaise/fatigue (mild unchanged). HENT: Negative. Eyes: Negative. Respiratory: Positive for cough (dry ). Negative for hemoptysis, sputum producti on, shortness of breath and wheezing. Cardiovascular: Negative. Gastrointestinal: Negative. Genitourinary: Negative. Musculoskeletal: Negative. Skin: Positive for rash (a little worse than last visit, but not as bad as initi ally). Neurological: Negative. Endo/Heme/Allergies: Negative. Psychiatric/Behavioral: Negative. Physical [...] pitting edema on LEs). Lymphadenopathy: He has cervical adenopathy (left supraclavicular indurated lymph nodes). Neurological: He is alert and oriented to person, place, and time. No cranial ne rve deficit. Skin: Skin is warm. Rash (little worse than last visit) noted. No pallor. Psychiatric: He has a normal mood and affect. Vital signs: Vitals: 12/07/18 0822 BP: 129/78 BP Location: right arm Patient Position: Sitting Pulse: 110 Temp: 97.6 F (36.4 C) TempSrc: Oral Weight: 260 lb (117.9 kg) Height: 5' 9" (1.753 m) Labs: Reviewed Assessment and plan: Stage 4 BRAF-mutant NSCLC [...] 11/11/18 was reviewed with the patient, morena ws disease progression in abdominal and pelvic lymph nodes keytruda was thus discontinued (disease progression, >2 years, and poor tolerance). IR biopsy of right pelvic lymph node done on 12/05/18, consistent with metastatic adenocarcinoma of lung origin. Patient updated about the result Plan for palliative carboplatin and taxol with neulasta. No avastin given freque nt instrumentation, no pemetrexed given CKD Risks, benefits, palliative intent of chemotherapy, prognosis, no guarantee of r esponse, treatment calendar, alternative explained in details to the patient. Treadwell ndout on carbo/taxol provided to patient.benefits of chemo outweigh risks Patient provided written informed consent for the carboplatin and taxol If good response options include evaluation for consolidative xrt vs. surveillan ce vs. single agent gemcitabine maintenance Proceed with chemo today neulasta tomorrow. He will come here to get it. Prescription for neulasta also written so he can take it from cycle 2 at home. ( he is at risk for neutropenic fever: CKD, previous xrt and chemo) zofran prescription prn for nausea rtc in 1 week for toxicity check-up and labs Order [facility] for molecular which may guide future systemic therapy Neutropenic precaution explained. Explained he needs to go to ED in case of feve r (temperature above 100) or intractable nausea/vomiting Patient voiced his understanding and he is agreeable to proceed with the chemoth erapy today pembrolizumab-related rash Grade 3 initially Improved initially on prednisone and holding keytruda Got worse when re-challenged with keytruda completed prednisone taper, had slight rebound with the lower dose Followed by dermatology Now it is grade 2, manageable with topical steroid Hydronephrosis w/ eval showing ureter stricture w/ renal insufficiency Followed by urology and nephrology Getting stent exchanged at short interval Creatinine today 4.32 Continue f/u with nephrology and urology To have stent exchanged in 2 days Anemia Chronic Asymptomatic Will monitor Cutaneous lesion S/p excision left upper back lesion (10/26/18): Scar with biopsy site changes. No residual atypical melanocytic proliferation S/p right shoulder lesion shave biopsy (10/26/18): positive invasive squamous ce ll carcinoma. Right shoulder re-excision on (11/08/18) showed residual SCC, negative margins Followed by dermatology All questions answered to patient and his up to their satisfaction Rimma Irving MD FACP Video Surveillance Technician Hematology-Oncology [facility] 12/07/18 documented in this encounter Plan of Treatment Care Team Description Date Type Specialty Rimma Irving MD [address] [address] 12/14/2018 Office Visit Hematology and Oncology Rimma Irving MD [address] [address] [phone] 12/28/2018 Office Visit Hematology and Oncology 11, [facility] [address], [address] [place] [address] 12/28/2018 Appointment Infusion Center Rimma Irving MD [address] [place] [address] [phone] 01/18/2019 Office Visit Hematology and Oncology 11, [facility] [address] 7[address], [address] [place] [address] 01/18/2019 Appointment Infusion Center Silvia Larose MD [address] 6th [address] [place] [address] [phone] 02/06/2019 Office Visit Dermatology Order Schedule Name Type Priority Associated Diagnoses Ordered: 12/07/2018 CBC W/AUTO DIFF WITH Lab Routine Metastatic non-small cell PLATELETS lung cancer (HCCode) Ordered: 12/07/2018 COMPREHENSIVE METABOLIC Lab Routine Metastatic non-small cell PANEL lung cancer (HCCode) Ordered: 12/07/2018 MAGNESIUM Lab Routine Metastatic non-small cell lung cancer (HCCode) Health Maintenance Due Date Last Done Comments TETANUS SHOT (ADULT) 1973 BMI FOLLOW UP PLAN 1976 HIV SCREENING 1976 FLU VACCINE > 6 MONTHS 10/27/2018 COLON CANCER SCREENIN07/30/2021 07/30/2016 COLONOSCOPY HEPATITIS C SCREENING Completed 08/19/2016 documented as of this encounter Results Not on filedocumented in this encounter Visit Diagnoses Diagnosis Metastatic non-small cell lung cancer (HCCode) - Primary documented in this encounter Insurance Type Payer Benefit Subscriber ID Effective Phone Address Plan / Dates Group [facility] BLUE SHIELD BLUE xxxxxxxxxxxx 2017-P [address] resent [id number] [facility] [id number] BCBS documented as of this encounter
--- OUTSIDE RECORDS SUMMARY | 2018-12-09 10:07 | XMS REPORT | Summary of Care ---
Author Author [facility] Organization [facility] Address Unknown Phone Unavailable Care Team Providers Care Mechanical Test Engineer Name Role Phone Robi Card PCP Reason for Visit * Reason Comments Follow Up * Treatment (Routine) Referred By Contact Referred To Contact Status Reason Specialty Diagnoses / Procedures Robi Card [address] [facility] [address] [place] [address] Adelia Rubi MD [address] [place] [address] 6th Floor, [address] [place] [address] Authorized Dermatology Diagnoses Dysplastic nevus P rocedures SR1 AND REPAIR Encounter Details Care Team Description Date Type Department Silvia Larose MD [address] [place] [address] 6th Floor,[address] [place] [address] [phone] Follow Up 11/29/2018 Office Visit [facility] Dermatology [address] [place], [place] [address]ler yisel, [facility] [address] [place] [address] Allergies Comments Active Allergy Reactions Severity Noted Date Makes nausea worse Makes nausea worse Promethazine Nausea And 06/05/2015 Vomiting tingling lips Ceftriaxone Sodium In 03/16/2018 Dextrose documented as of this encounter (statuses as of 11/29/2018) Medications End Date Status Medication Sig Dispensed [...] Gastroesophageal reflux disease without esophagitis Active B Mgsamew-I-T-Zn (MYBEC Take by 0 OR)Indications: Malignant mouth [...] 9 2 times daily. Avoid face/groin/ax illae documented as of this encounter (statuses as of 11/29/2018) Active Problems Problem Noted Date Renal insufficiency [...] as of this encounter (statuses as of 11/29/2018) Resolved Problems Problem Noted Date Resolved Date 6th nerve palsy 09/17/2015 09/25/2017 documented as of this encounter (statuses as of 11/29/2018) Social History Date Tobacco Use Types Packs/Day [...] filedocumented in this encounter Progress Notes * Silvia Larose MD - 11/29/2018 4:45 PM CDT This is a 58 y.o. wm who presents for f/u of rash felt to be 2/2 keytruda. He h as been off the keytruda for about 9 weeks. He took his last prednisone dose tod ay. He notes the rash is getting a little worse, he is somewhat itchy but not as bad or extensive as before. He is scheduled for likely LN left pelvis next week and then subsequent chemo and possible XRT At this point it does not seem like he will go back on the keytruda He feels mostly well overall Is using dermend but this has not worked as well as estephania Using triamcinolone cream as well which helps H/o severely dysplastic nevus and nmsc, h/o lung cancer PE; Well developed, well nourished Anicteric wm, alert and oriented, non anxiou s, in no acute distress Total body exam declined Focused exam upper back, chest, abdomen, arms, proximal thighs and buttocks 1. erythematous scaling thin plaques chest, back, abdomen, arms, buttocks, proxi mal thighs Eyes and mouth clear AP: 1. keytruda eruption with slight rebound after lowering prednisone dose Reassurance, counseling No signs of dangerous drug reaction, severity of current eruption does not warra nt repeating prednisone at this time, especially in light of upcoming surgery/th erapy Will optimize topical therapy gentle skin care, emollients triamcinolone cream am, ointment pm risks and benefits explained follow Patient to call if unimproved or worsened rv regular checks documented in this encounter Plan of Treatment Care Team Description Date Type Specialty Rimma Irving MD [address] [facility] [address] [place] [address] 12/07/2018 Office Visit Hematology and Oncology Silvia Larose MD [address] [facility] 6th [address] [place] [address] 02/06/2019 Office Visit Dermatology Health Maintenance Due Date Last Done Comments TETANUS SHOT (ADULT) 1973 BMI FOLLOW UP PLAN 1976 HIV SCREENING 1976 FLU VACCINE > 6 MONTHS 10/27/2018 COLON CANCER SCREENIN07/30/2021 07/30/2016 COLONOSCOPY HEPATITIS C SCREENING Completed 08/19/2016 documented as of this encounter Results Not on filedocumented in this encounter Visit Diagnoses Diagnosis Rash - Primary Rash and other nonspecific skin eruption Adverse effect of drug, initial encounter documented in this encounter Insurance Type Payer Benefit Subscriber ID Effective Phone Address Plan / Dates Group [facility] [employer] BLUE SHIELD BLUE xxxxxxxxxxxx 2017-P [address] resent [id number] [employer] [id number] BCBS documented as of this encounter
[2018-12-09 14:20] VITALS: BP 141/80
--- NOTE | 2019-01-24 05:49 | Operative Report ---
DATE OF PROCEDURE: 12/09/2018 SURGEON: Jorge Zendejas MD PREOPERATIVE DIAGNOSES: 1. Bilateral ureteral strictures and obstruction. 2. Bilateral indwelling ureteral stents. 3. Bilateral hydronephrosis. POSTOPERATIVE DIAGNOSES: 1. Bilateral ureteral strictures and obstruction. 2. Bilateral indwelling ureteral stents. 3. Bilateral hydronephrosis. OPERATIONS PERFORMED: 1. Cystourethroscopy with removal of a total of four stents, two from each side (separate procedure performed for the diagnosis of stents). 2. Cystourethroscopy with bilateral ureteral stricture dilation (separate procedure performed for the diagnosis of dilation). 3. Urological services with supervision and interpretation of stricture dilation. 4. Cystourethroscopy with insertion of four separate indwelling ureteral stents, two on each side (separate procedure performed to relieve. The patient was difficult to treat bilateral hydronephrosis and obstruction). 5. Interpretation of retrograde ureteropyelography, no radiologist present. 6. Supervision of fluoroscopy, no radiologist present. ANESTHESIA: General. COMPLICATIONS: None. CLINICAL SUMMARY: Paulo Wolf is an extremely complicated and unfortunate patient, who has metastatic lung cancer. The patient has the above preoperative diagnoses and is brought for the above procedures. The patient has acute on chronic renal failure and has required more frequent changing of his stents. The patient also has chronic candiduria in part because of his chronically immunocompromised state due to chemotherapy. It is believed that the recurrent candiduria seems to be plugging his stents up causing him exacerbation of renal failure episodes, thus necessitating more frequent interventions. The patient is aware of the risks of bleeding, infection, injury to adjacent structures, need for additional procedures and elected to proceed. OPERATIVE PROCEDURE IN DETAIL: Informed consent was verified. Paulo Wolf was properly identified and taken to the operating room, placed in the cystoscopy table in supine position. Anesthesia was uneventfully begun. The patient was then carefully and gently repositioned in dorsal lithotomy position. All pressure points well padded. His genitalia were prepared and draped in usual sterile fashion. The cystoscope sheath with a visual obturator in place, it was atraumatically inserted into the patient's urethra, this guided down the unremarkable urethra, through the normal sphincteric region through the prostate bed, which exhibited visually obstructing bilobar prostatic hypertrophy. We entered the patient's bladder and drained it. Panendoscopy revealed no suspicious mucosal lesions. No tumors. No stones. Both ureteral orifices had two separate stents emerging from, and these stents were covered in whitish type of debris consistent with candiduria. A guidewire was then placed alongside of the stents on the right-hand side guided to the level of the patient's kidney. The stents were then grasped, completely removed and discarded. Double-lumen ureteral catheter was then placed over the guidewire and guided to the level of the patient's kidney. Hydronephrotic drip was obtained. It was relatively clear, thus we dilated the ureter. Contrast was injected. Secondary guidewire was placed. With cystoscopic fluoroscopic guidance, two separate indwelling ureteral stents were then placed in the right hand side. They were coiled into the patient's kidney as well as the patient's bladder. The retaining suture was cut short. An identical course maneuvers were then performed on the left hand side, thus replacing those two stents and dilating the stricture as well. Interpretation of retrograde ureteropyelography contrast was instilled in retrograde fashion bilaterally. There was bilateral chronic hydronephrosis with calyceal blunting. The stents at the end of the case were coiled to the patient's kidneys as well as the patient's bladder. The patient's bladder was drained, cystoscope withdrawn belladonna and opium suppository were placed revealing a large prostate that was smooth, nonfluctuant without any nodules. The patient was then uneventfully reversed from anesthesia and taken to recovery room in stable condition. Explicit postoperative instructions were given and we will plan on returning the patient to the operating room in the next couple months to change his stents again. Hopefully, he will not have any more renal failure episodes prior to that schedule stent change. Jorge Zendejas MD [place]/KAITY /[id number]
== END | disposition home or self-care (01) ==
LOC: OR 09:56
PROVIDERS: ATTEND Urology
DX: N13.5 Crossing vessel and stricture of ureter without hydronephrosis (principal); N17.9 Acute kidney failure, unspecified; I12.9 Hypertensive chronic kidney disease with stage 1 through stage 4 chronic kidney disease, or unspecified chronic kidney disease; N18.9 Chronic kidney disease, unspecified; N13.30 Unspecified hydronephrosis; B37.49 Other urogenital candidiasis; N40.1 Benign prostatic hyperplasia with lower urinary tract symptoms; N13.8 Other obstructive and reflux uropathy; Z96.0 Presence of urogenital implants; Z46.6 Encounter for fitting and adjustment of urinary device; C34.90 Malignant neoplasm of unspecified part of unspecified bronchus or lung; C79.9 Secondary malignant neoplasm of unspecified site; E78.5 Hyperlipidemia, unspecified; E03.9 Hypothyroidism, unspecified; M54.9 Dorsalgia, unspecified; Z88.8 Allergy status to other drugs, medicaments and biological substances; Z88.1 Allergy status to other antibiotic agents; Z01.810 Encounter for preprocedural cardiovascular examination; Z79.82 Long term (current) use of aspirin; Z92.21 Personal history of antineoplastic chemotherapy; Z92.3 Personal history of irradiation
CPT/HCPCS: 52332; 52341; 74420; 93005; C1766; C2617; J1100; J1450; J1956; J2001; J2250; J2405; J2704; J3010; Q9967

== ENCOUNTER 2019-04-13 12:37 | Inpatient (IN) | payer BC ==
[~2019-04-13] VITALS: Ht 170.2 cm; Wt 109.8 kg
[~2019-04-13 12:37] MED LIST changes: -B&O 60MG R/S 60 MG SUPP PR ONE; -DEXAMETHASONE SOD PHOS INJ 4 MG/ML VIAL ONE; -FENTANYL CITRATE/PF 100MCG/2 ML INJ ONE; -FLUCONAZOLE 200 MG/100 ML 100 ML IV ONE; +GABAPENTIN100 MG PO; -IOPAMIDOL 610MG/1ML 300 MG/ML VIAL IV ONE; -LEVOFLOXACIN 500MG/D5W 100ML 100 ML IV ONE; -LIDOCAINE HCL 2% LOCAL INJ 5 ML SDV VIAL INJ ONE; -MIDAZOLAM HCL 2 MG/2 ML VIAL ONE; +NORCO 10-325 T1 EACH PO; -ONDANSETRON HCL INJ 2MG/ML 2ML 2 MG/ML VIAL ONE; -PROPOFOL IV EMULSION 10 MG/ML 20 ML VIAL ONE; -SEVOFLURANE INHAL SOLN 250 ML PEN BTL ONE
[2019-04-13] MEDS ORDERED: SODIUM CHLORIDE 0.9% 1000ML 1,000 ML IV STA (13:22)
[2019-04-13 13:47] LABS: BASOPHILS % 0.3 % (0.0-1.0); EOSINOPHILS % 1.4 % (0.0-6.0); HEMATOCRIT 23.1 % (38.2-49.6); HEMOGLOBIN 7.5 g/dL (14.0-18.0); LYMPHOCYTES # (AUTO) 0.2 (1.0-3.2); LYMPHOCYTES % 6.9 % (18.0-39.1); MEAN CORPUSCULAR HEMOGLOBIN 30.9 pg (28-32); MEAN CORPUSCULAR HGB CONC 32.5 g/dL (31-35); MEAN CORPUSCULAR VOLUME 95.1 fL (81-99); MONOCYTES # (AUTO) 0.4 (0.2-0.8); MONOCYTES % 12.2 % (4.4-11.3); NEUTROPHILS # (AUTO) 2.3 (2.1-6.9); NEUTROPHILS % 78.9 % (38.7-80.0); RED BLOOD COUNT 2.43 x10e6/uL (4.3-5.7); RED CELL DISTRIBUTION WIDTH 14.6 % (11.7-14.4)
[2019-04-13 13:51] LABS: PLATELET COUNT 27 x10e3/uL (140-360)
[2019-04-13 14:07] LABS: ALBUMIN 2.8 g/dL (3.5-5.0); ALBUMIN/GLOBULIN RATIO 0.9 (0.8-2.0); ANION GAP 17.1 mmol/L (8-16); CALCIUM 8.6 mg/dL (8.4-10.2); CREATININE, SERUM 8.61 mg/dL (0.72-1.25); POTASSIUM 4.1 mmol/L (3.5-5.1)
--- NOTE | 2019-04-13 14:49 | Diagnostic Imaging Report ---
CT of the abdomen and pelvis, without contrast, 04/13/2019. History: Elevated creatinine, history of ureteral stents. Comparison: 02/23/2018. Technique: Multidetector CT scanning of the abdomen and pelvis was performed from the level of the lung bases to the inferior pubic rami without intravenous or oral contrast. Coronal and sagittal multiplanar reformations were obtained. RADIATION DOSE: Total DLP: 1002 mGy*cm Dose modulation, iterative reconstruction, and/or weight based adjustment of the mA/kV was utilized to reduce the radiation dose to as low as reasonably achievable. Discussion: Examination is limited without contrast. Lung bases: There is bilateral linear atelectasis. Small right pleural effusion is present. Chronic elevation of the right hemidiaphragm is noted. Abdomen: There is severe right hydronephrosis, slightly worsened compared to prior exam. The left kidney is atrophic with moderate hydronephrosis, slightly decreased compared to prior exam. 2 internal ureteral stents are present bilaterally extending from the renal pelves to the bladder. No stones are seen within the kidneys. Large simple right renal upper pole cyst is again noted. The liver, gallbladder, biliary tree, spleen, pancreas, and adrenal glands unremarkable. The abdominal aorta is within normal limits. There is no bowel dilatation. There is no evidence of adenopathy or free fluid. Pelvis: The bladder is unremarkable. The prostate is prominent measuring 5.6 cm in transverse diameter. Enlarged right inguinal lymph nodes are present measuring up to 1.9 cm in short axis diameter. There is no evidence of free fluid. Bilateral fat-containing inguinal hernias are present. Bones and soft tissues: Degenerative changes are present throughout the lumbar spine without evidence of lytic or sclerotic lesion. L1 vertebral body compression deformity with cement augmentation is again noted. IMPRESSION: 1. Severe right hydronephrosis, increased compared to prior exam. 2 right internal ureteral stents are present. 2. Left renal atrophy with moderate left hydronephrosis, slightly decreased compared to prior exam. 2 internal ureteral stents are also present. 3. Prostatomegaly. 4. Right inguinal adenopathy. 5. Bilateral fat-containing inguinal hernias. Signed by: Tal Harper on 04/13/2019 2:47 PM
[2019-04-13] MEDS: SODIUM CHLORIDE 0.9% 1000ML 1,000 ML IV SCH (14:53)
[2019-04-13 14:58] LABS: BILIRUBIN,URINE NEGATIVE (NEGATIVE); CLARITY,URINE HAZY (CLEAR); COLOR,URINE YELLOW (YELLOW); KETONES,URINE NEGATIVE (NEGATIVE); LEUKOCYTE ESTERASE ,URINE 2+ (NEGATIVE); NITRITE,URINE NEGATIVE (NEGATIVE); PROTEIN,URINE DIPSTICK 1+ (NEGATIVE); URINE UROBILINOGEN 0.2 mg/dL (0.2 - 1)
[2019-04-13 15:12] LABS: BACTERIA,URINE PRESENT /HPF; WBC,URINE (MAN) >50 /HPF (0-5)
[2019-04-13] MEDS: SODIUM BICARBONATE 8.4% SYRING 150 ML in DEXTROSE 5% 1,000 ML IV SCH (15:26)
--- NOTE | 2019-04-13 18:30 | NUR ---
The pt. arrived to the room and was placed in bed with access to the call system.
[2019-04-13 19:00] VITALS: BP 119/73
[2019-04-13] MEDS ORDERED: FILGRASTIM 480 MCG/0.8 ML SQ NR (19:00)
--- NOTE | 2019-04-13 19:10 | NUR ---
RECEIVED PATIENT IN REPORT.REYNA IN THE BED. IS IN THE UNIT.AFTER DISCUSSING WITH THE PATIENT AND FAMILY MEMBER ORDERED 3 UNITS OF BLOOD TRANSFUSION.RECEIVED NEW ORDERS.KEEP MONITOR THE PT.
[2019-04-13] MEDS ORDERED: SODIUM CHLORIDE 0.9% 250ML 250 ML IV ONE (19:30)
[2019-04-13] MEDS ORDERED: DIPHENHYDRAMINE HCL INJ 50 MG/ML VIAL IV NR (20:00)
[2019-04-13 20:20] VITALS: BP 119/73
[2019-04-13] MEDS ORDERED: FUROSEMIDE INJ 10 MG/ML 2 ML VIAL IV NR ×2 (20:30→22:45)
[2019-04-13 21:00] VITALS: BP 119/73
--- NOTE | 2019-04-13 21:42 | Consultation ---
DATE OF CONSULTATION: 04/13/2019 LOCATION: Emergency room. HISTORY OF PRESENT ILLNESS: A 58-year-old gentleman known to our Nephrology Service underlying history of CKD 4. History of recurrent bilateral hydronephrosis. He has had multiple stents exchange just about every 5-7 weeks, just received his last round of IV immunotherapy for his lung cancer at [facility] with plans for radiation therapy and oral chemotherapy in future. This chemotherapy was given on the 13 of March. Had outpatient labs at Dr. Card's office showed a creatinine of 8. He was re-routed here to the emergency room, just underwent CT scan of the abdomen. Official results are pending. I glance of the CT and sure enough has bilateral hydro right more than left with stents in place. Laboratory test shows sodium 133, potassium 4.1, bicarbonate 16, BUN 81, creatinine 8.6 with an albumin 2.8. The patient currently awake, alert, cheerful mood, no apparent distress. Denies fever, chills, or abdominal pain. Just voided urine without any issues. His CBC shows a white count of 2.88, hemoglobin 7.5, platelets 27. ALLERGIES: TO CEFTRIAXONE, PROMETHAZINE. HOME MEDICATION: Not reconciled yet. SOCIAL HISTORY: Does not smoke or drink. FAMILY HISTORY: Significant for hypertension. PAST HISTORY: Has history of underlying lung carcinoma, hyperlipidemia, prostate enlargement, and hypothyroidism. SOCIAL HISTORY: He is . Does not smoke or drink. PHYSICAL EXAMINATION: GENERAL: Awake, alert, oriented x3, no apparent distress. VITAL SIGNS: With a blood pressure of 143/71, pulse rate 86, afebrile, oxygen saturation 100%. HEAD AND NECK: Cornea clear. Oral mucosa moist. LUNGS: Relatively clear. No rales or rhonchi. HEART: S1, S2 audible. ABDOMEN: Otherwise soft, nontender. No apparent visceromegaly. EXTREMITIES: Lower extremity, no edema. IMPRESSION: Acute on chronic kidney failure, obstructive uropathy due to blocked stent with bilateral hydro right more than left, pancytopenic, recent chemotherapy, stage IV lung carcinoma, prior lobectomy, hypertension, mildly acidotic on chemistry with an anion gap of 17. PLAN: I am giving 1 L IV normal saline bolus, starting IV bicarbonate drip. The patient voiding urine. No indications for dialysis. Discussed with Dr. Ortiz. We will invite Dr. Pickering because of his pancytopenia to prepare him with platelets or Neupogen, which whatever is necessary, so that Dr. Zendejas can proceed with a stent exchange at some point in time. Discussed with the patient. Discussed with ER physician. MD MAYANK Wallace/MODHoracio /[id number]
[2019-04-13] MEDS ORDERED: SODIUM CHLORIDE 0.9% 250ML 250 ML ONE (22:28)
--- NOTE | 2019-04-13 23:00 | NUR ---
CONSENT SIGNED.FIRST UNIT OF BLOOD STATRED AFTER VERIFY WITH ANOTHER RN.ADMISSION ASSESSMENT DONE.BED LOCKED AND IN LOWEST POSITION.PHONE AND CALL LIGHT WITHIN REACH.INSTRUCTED TO CALL FOR ASSISTANCE NEEDED.CONSULTS WITH OBTAINED.ORDERED TO KEEP NPO AFTER MIDNIGHT.EXPLAINED TO THE PATIENT.STABLE CONDITION.
[2019-04-14] VITALS (8 sets, daily range): BP systolic 107–147; BP diastolic 63–81
[2019-04-14] MEDS: SODIUM CHLORIDE 0.9% 1000ML 1,000 ML IV SCH (00:45)
--- NOTE | 2019-04-14 02:00 | NUR ---
FIRST UNIT OF BLOOD COMPLETED.NO REACTION NOTED.STABLE CONDITION.
[2019-04-14] MEDS: SODIUM BICARBONATE 8.4% SYRING 150 ML in DEXTROSE 5% 1,000 ML IV SCH (02:15)
--- NOTE | 2019-04-14 02:45 | NUR ---
SINAO PLATELETS STATRED.PT TOLERATED WELL.
--- NOTE | 2019-04-14 04:00 | NUR ---
PLATELETS COMPLETED.V/S STABLE.
[2019-04-14] MEDS: HYDROCODONE/APAP 10MG-325MG TAB PO PRN ×3 (06:11→21:06)
--- NOTE | 2019-04-14 06:11 | NUR ---
ORDERED TO GIVE T.NORCO 10 MG PO WITH SIPS OF WATER.
[2019-04-14 06:17] LABS: BASOPHILS % 0.2 % (0.0-1.0); EOSINOPHILS # (AUTO) 0.1 (0.0-0.4); EOSINOPHILS % 1.3 % (0.0-6.0); HEMATOCRIT 23.4 % (38.2-49.6); LYMPHOCYTES # (AUTO) 0.2 (1.0-3.2); LYMPHOCYTES % 3.6 % (18.0-39.1); MEAN CORPUSCULAR HEMOGLOBIN 31.7 pg (28-32); MEAN CORPUSCULAR HGB CONC 34.2 g/dL (31-35); MEAN CORPUSCULAR VOLUME 92.9 fL (81-99); MONOCYTES # (AUTO) 0.5 (0.2-0.8); MONOCYTES % 8.9 % (4.4-11.3); NEUTROPHILS # (AUTO) 4.5 (2.1-6.9); NEUTROPHILS % 85.2 % (38.7-80.0); RED BLOOD COUNT 2.52 x10e6/uL (4.3-5.7); RED CELL DISTRIBUTION WIDTH 14.4 % (11.7-14.4)
--- NOTE | 2019-04-14 06:30 | NUR ---
SECOND UNIT OF BLOOD STARTED .V/S STABLE.KEEP MONITOR THE PT.
[2019-04-14 06:44] LABS: ALKALINE PHOSPHATASE 54 IU/L (40-150); ANION GAP 18.1 mmol/L (8-16); BLOOD UREA NITROGEN 83 mg/dL (7-26); BUN/CREATININE RATIO 9 (6-25); CALCIUM 8.6 mg/dL (8.4-10.2); CARBON DIOXIDE 14 mmol/L (22-29); CHLORIDE 108 mmol/L (98-107); CREATININE, SERUM 8.85 mg/dL (0.72-1.25); EST GLOMERULAR FILTRATION RATE 6 ML/MIN (60-); GLUCOSE 84 mg/dL (74-118); POTASSIUM 4.1 mmol/L (3.5-5.1); SODIUM 136 mmol/L (136-145)
[2019-04-14 06:45] LABS: PLATELET COUNT 42 x10e3/uL (140-360)
[2019-04-14 06:50] LABS: ALANINE AMINOTRANSFERASE < 6 IU/L (0-55)
[2019-04-14 06:58] LABS: ALBUMIN 2.5 g/dL (3.5-5.0); ALBUMIN/GLOBULIN RATIO 0.8 (0.8-2.0)
--- NOTE | 2019-04-14 07:26 | NUR ---
BEDSIDE SHIFT REPORT GIVEN TO ONCOMING RN.STABLE CONDITION.
--- NOTE | 2019-04-14 07:28 | NUR ---
BSSR COMPLETED WITH DWAIN KINCAID. BLOOD TRANSFUSING, NO RASH, NO SOB, OR ANY OTHER SIGNS OF REACTION OR DISTRESS. PT AWAKE, ALERT, ORIENTED, SPEAKING IN FULL SENTENCES. WILL CONTINUE TO MONITOR.
--- NOTE | 2019-04-14 07:52 | NUR ---
SPOKE WITH DR MARTINS WHO WANTS PT TO HAVE SURGERY THIS MORNING. INFORMED DR MARTINS PT RECEIVING 2ND BAG OF BLOOD AND CURRENT HGB IS 8.0. HE STATES HGB IS FINE AND EXPEDITE BLOOD TRANSFUSION AND GIVE 1 BAG OF PLATELETS SOON POSSIBLE SO PT CAN GO FOR SURGERY HIS CREATININE IS 8.85.
[2019-04-14 08:17] LABS: EOSINOPHILS % (MANUAL) 1 % (0-7); LYMPHOCYTES % (MANUAL) 6 % (19-48); MONOCYTES % (MANUAL) 7 % (3.4-9.0); NEUTROPHILS % (MANUAL) 86 % (40-74); PLATELET ESTIMATE MARKEDLY DECREASED; PLATELET MORPHOLOGY COMMENT NORMAL; RBC MORPHOLOGY COMMENT NORMAL
--- NOTE | 2019-04-14 08:40 | NUR ---
INFORMED BY LAB THE ORDER FOR PLATELETS WILL NOT BE READY UNTIL 1130; NOTIFIED OR ABOUT DELAY IN GIVING OF PLATELETS.
[2019-04-14 10:06] LABS: BASOPHILS % 0.3 % (0.0-1.0); EOSINOPHILS # (AUTO) 0.1 (0.0-0.4); EOSINOPHILS % 0.9 % (0.0-6.0); HEMATOCRIT 26.3 % (38.2-49.6); HEMOGLOBIN 8.8 g/dL (14.0-18.0); LYMPHOCYTES # (AUTO) 0.3 (1.0-3.2); LYMPHOCYTES % 4.9 % (18.0-39.1); MEAN CORPUSCULAR HEMOGLOBIN 31.1 pg (28-32); MEAN CORPUSCULAR HGB CONC 33.5 g/dL (31-35); MEAN CORPUSCULAR VOLUME 92.9 fL (81-99); MONOCYTES # (AUTO) 0.5 (0.2-0.8); MONOCYTES % 8.5 % (4.4-11.3); NEUTROPHILS # (AUTO) 5.4 (2.1-6.9); RED BLOOD COUNT 2.83 x10e6/uL (4.3-5.7); RED CELL DISTRIBUTION WIDTH 14.8 % (11.7-14.4)
[2019-04-14] MEDS ORDERED: IOPAMIDOL 300MG/ML 100 ML INFUS..BTL IV ONE (10:15)
[2019-04-14 10:18] LABS: PLATELET COUNT 44 x10e3/uL (140-360)
[2019-04-14] MEDS ORDERED: B&O 60MG R/S 60 MG SUPP PR ONE (10:20)
--- NOTE | 2019-04-14 10:49 | NUR ---
PT LEFT THE FLOOR GOING TO OR FOR SURGERY. INFORMED BY RN IN OR THEY WILL HANG THE THIRD AND FINAL BAG OF PRBC'S. PT LEFT IN STABLE CONDITION.
[2019-04-14] MEDS ORDERED: B&O 60MG R/S 60 MG SUPP PR PRN (12:00)
[2019-04-14] MEDS ORDERED: FAMOTIDINE 20 MG/2 ML VIAL IV ONE (12:08)
[2019-04-14] MEDS ORDERED: ONDANSETRON HCL INJ 2MG/ML 2ML 2 MG/ML VIAL ONE ×2 (12:30→18:07)
[2019-04-14] MEDS ORDERED: FLUCONAZOLE 200 MG/100 ML 100 ML IV ONE ×2 (12:45→18:00)
--- NOTE | 2019-04-14 13:04 | NUR ---
REPORT FROM PACU; PT GOT C&R AND BILATERAL STENTS; PT HAS 4 STENTS TOTAL. NOTED RASH TO LEGS,ARMS, AND UPPER BODY; PT GOT BENADRYL AND PEPCID. GOT 1 UNIT OF JUMBO PLATELETS. DID NOT RECEIVE 3RD UNIT OF PRBC'S. BP WAS LOW 60'S TO 80'S SYSTOLIC, BUT NOW 102 SYSTOLIC. PT AWAKE, ALERT, ANSWERING QUESTIONS, NO PAIN. GOT 4MG ZOFRAN. HAS 20 SETSWANA RUSH, 5CC BALLOOON. AWAITING ARRIVAL BACK TO ROOM.
[2019-04-14] MEDS ORDERED: FUROSEMIDE INJ 10 MG/ML 2 ML VIAL IV ONE (14:40)
--- NOTE | 2019-04-14 15:00 | NUR ---
PT RECEIVING 3RD UNIT OF BLOOD. AT BEDSIDE. PT AWAKE, ALERT, NO SIGNS OF DISTRESS. DWAIN KIRAN WITNESSED BLOOD AT BEDSIDE.
[2019-04-14] MEDS ORDERED: FENTANYL CITRATE/PF 100MCG/2 ML INJ ONE (15:26)
[2019-04-14] MEDS: SODIUM BICARBONATE 650 MG TAB PO SCH ×2 (17:04→21:03)
[2019-04-14] MEDS ORDERED: LIDOCAINE HCL 2% LOCAL INJ 5 ML SDV VIAL INJ ONE (18:07)
[2019-04-14] MEDS ORDERED: PROPOFOL IV EMULSION 10 MG/ML 20 ML VIAL ONE (18:07)
[2019-04-14] MEDS ORDERED: SEVOFLURANE INHAL SOLN 250 ML PEN BTL ONE (18:07)
--- NOTE | 2019-04-14 19:43 | NUR ---
Received bedside report from day nurse. Patient resting in bed, no s/s of distress or c/o pain at this time. All safety measures in place. Family at bedside. Will continue to monitor.
[2019-04-15] VITALS (9 sets, daily range): BP systolic 119–157; BP diastolic 61–77
[2019-04-15 05:50] LABS: BASOPHILS % 0.3 % (0.0-1.0); EOSINOPHILS # (AUTO) 0.1 (0.0-0.4); EOSINOPHILS % 1.3 % (0.0-6.0); HEMOGLOBIN 9.9 g/dL (14.0-18.0); LYMPHOCYTES # (AUTO) 0.3 (1.0-3.2); LYMPHOCYTES % 8.8 % (18.0-39.1); MEAN CORPUSCULAR HEMOGLOBIN 30.9 pg (28-32); MEAN CORPUSCULAR VOLUME 93.8 fL (81-99); MONOCYTES # (AUTO) 0.3 (0.2-0.8); MONOCYTES % 7.5 % (4.4-11.3); NEUTROPHILS # (AUTO) 3.2 (2.1-6.9); NEUTROPHILS % 81.3 % (38.7-80.0); PLATELET COUNT 60 x10e3/uL (140-360); RED CELL DISTRIBUTION WIDTH 15.7 % (11.7-14.4)
[2019-04-15 06:08] LABS: ALBUMIN 2.5 g/dL (3.5-5.0); ALBUMIN/GLOBULIN RATIO 0.9 (0.8-2.0); ANION GAP 18.3 mmol/L (8-16); CALCIUM 8.4 mg/dL (8.4-10.2); CREATININE, SERUM 8.38 mg/dL (0.72-1.25); POTASSIUM 4.3 mmol/L (3.5-5.1)
--- NOTE | 2019-04-15 07:15 | NUR ---
bedside shift report completed with PM RN. pt in stable condition.
--- NOTE | 2019-04-15 07:17 | NUR ---
Bedside report given to oncoming nurse. Patient resting in bed, no s/s of distress or c/o pain at this time. All safety measures in place.
[2019-04-15] MEDS: SODIUM BICARBONATE 650 MG TAB PO SCH ×3 (08:29→20:32)
--- NOTE | 2019-04-15 11:59 | NUR ---
PT REFUSED TO PARTICIPATE IN DPA
[2019-04-15] MEDS: SODIUM BICARBONATE 8.4% SYRING 150 ML in DEXTROSE 5% 1,000 ML IV SCH ×2 (13:04→21:12)
--- NOTE | 2019-04-15 14:34 | Consultation ---
DATE OF CONSULTATION: 04/13/[address] Card. HISTORY OF PRESENT ILLNESS: Paulo Wolf is a 58-year-old white male, referred to me for evaluation of pancytopenia. The patient is a very belligerent patient, when I gave my card to introduce myself, he did not even look at the card, just put it to the side. After introduction, I had explained to him as to why I was consulted at which time his response was, "you don't even know me." The interrupted at this time and he was not happy about the interruption of the and the was trying to tell him to listen to the physician as to what he has to offer. After a few minutes of struggle, I asked him if he wanted me to walk out and have someone else take care of him, since there are multiple medical oncologists in [place], who could take over at which time the reintroduced and said, no I have experience with you, you have taken care of my father, I want you to stay. He was very difficult to introduce myself and also the problems he has as he has his own ideas. 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 However, he never allowed me to speak a word. After settling down, he claimed that he has been treated for lung cancer to begin with at [facility] and later at [facility] that he has been getting therapy for quite some time. The last therapy was approximately two weeks back. The details of the therapy he could not provide me the name of the therapy whether immunotherapy or chemotherapy. However, is of academic interest to me since I will not be involved in the care of his lung cancer. He also claims that he is going to get radiation to the neck and the groin. He did not know if he has any organ metastases, however, that again is of academic interest to me because the patient will go back to his physician after introduction and after a prolonged period of convincing him that I am here to help him. I did tell him the problem of a low white count of 2.88, not knowing the jorge that it may drop more and platelets of 27,000 and hemoglobin of 7.5. REVIEW OF SYSTEMS: HEENT: Normal. CARDIAC: Normal. RESPIRATORY: Evidently being treated for lung cancer. Clinical stage I do not know since he has not being forthcoming, the type I do not know, the type of treatment I do not know. GI: Normal. : Chronic renal failure. MUSCULOSKELETAL: Normal. SKIN: Normal. BREASTS: Normal. NEUROENDOCRINE: Essentially normal. MEDICATIONS: At this time: 1. Saline. 2. Sodium bicarbonate. PHYSICAL EXAMINATION: GENERAL: Morbidly obese male, anemic, right inguinal adenopathy. HEART: Within normal limits. LUNGS: Clear. ABDOMEN: Could not be examined as fairly large gentleman. RECTAL: Deferred. CENTRAL NERVOUS SYSTEM: Essentially normal. EXTREMITIES: 1+ edema. LABORATORY DATA: Sodium 133, potassium 4.1, chloride 104, CO2 of 26, BUN 81, creatinine 8.6, glucose 88. Hemoglobin of 7.5, hematocrit 23.1 with normal indices, white count of 2880, platelets of 27,000. Bilirubin 0.3, SGOT 9 mg, SGPT 7, alkaline phosphatase 64. CT scan has shown prostatomegaly, right hydronephrosis and a ureteral stent in the right inguinal node 1.9 cm. IMPRESSION: 1. Anemia of chronic disease. 2. Neutropenia. 3. Thrombocytopenia. 4. Chronic renal failure. 5. Hyponatremia. 6. Hypoproteinemia. 7. Hypoalbuminemia. 8. Urinary tract infection by urinalysis criteria, multiple bacteria in the urine. 9. Right hydronephrosis. 10. Ureteral stent. 11. Prostatomegaly. 12. Right inguinal node 1.9 cm. 13. History of lung cancer. 14. History of chemotherapy or immunotherapy, which is not clear from the history. PLAN, COMMENTS, AND SUGGESTIONS: Suggest blood transfusion to bring the hemoglobin up close to 10 as he is going to undergo general anesthesia. Neupogen to bring the white count up to at least 3500, platelet transfusion to bring the platelets up to 50,000, to avoid any bleeding. Bone marrow can be considered if the patient does not recover as I do not know how long the patient had chemotherapy or immunotherapy. However, this again will not be done by me. Right inguinal node biopsy. However, this decision will be made by the physician in charge of Hematology-Oncology. After I laid out the plan, he objected to the blood transfusion, I had to quote the Medicaid criteria. He does qualify for blood transfusion and the anesthesiologist will not put him through any kind of anesthesia unless the hemoglobin is between 9 and 10 g. He also objected to the platelets. I again explained for any kind of surgery he will need the platelets to be above 50,000 or else during intubation he could bleed at which point, he asked me to call the urologist for obtaining an okay for my plan. 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 The patient was given blood transfusion 3 units of packed RBCs, which brought the hemoglobin up the following day to 8.8, platelets were still 44,000. The urologist in charge had given him one more unit of platelets prior to surgery to bring it up to 50,000. The patient's white count went up to 6370 with one Neupogen of 480 mcg subcutaneously. This again was a debate. He had asked me to give him Neulasta, however, I did explain Neulasta is speculated, the duration of action is long. Neulasta is not kept at this institution since it is extremely expensive and that I will give him Neupogen for a very short-term to tide him over surgery. As I had put in my notes, he is a very difficult patient. I have tried my best to be as polite as possible to him. The patient underwent the surgery. The patient's platelets today of 60,000, hemoglobin of 9.9, white count of 3870. I will sign off. Please recall me if needed. Thank you very much for allowing me to participate in the management of this patient during this hospitalization. Juan C Clark MD MAQ/MODL /[id number] cc: MD Masoud Steiner MD
--- NOTE | 2019-04-15 15:31 | Diagnostic Imaging Report ---
EXAM: Renal Ultrasound INDICATION: ^hydro sp stents exchange ^[id number] ^[id number] COMPARISON: None . Correlation with CT abdomen dated 04/13/2019. TECHNIQUE: Transverse and longitudinal images of the kidneys and bladder were obtained. FINDINGS: Right Kidney: Length: 11.9 cm Appearance: Normal echogenicity. Collecting system: Mild to moderate hydronephrosis Stones: None Cyst/Mass: Lower pole cyst measures 5.0 x 5.4 5.5 cm Partially visualized ureteral stent. Left Kidney: Length: 9.5 cm Appearance: Normal echogenicity. Collecting system: Minimal residual caliectasis. Stones: None Cyst/Mass: None Bladder: Normal Small volume of free fluid in the right upper quadrant. IMPRESSION: Mild to moderate right and minimal left residual hydronephrosis status post ureteral stent placement. Signed by: Dr. Isabelle Martinez M.D. on 04/15/2019 3:28 PM
--- NOTE | 2019-04-15 15:57 | NUR ---
PAGED DR BOOKER REGARDING RENAL US RESULTS. AWAITING CALLBACK.
--- NOTE | 2019-04-15 19:38 | NUR ---
Received bedside report from day nurse. Patient resting in bed, no s/s of distress or c/o pain at this time. All safety measures in place. Will continue to monitor.
[2019-04-16] VITALS (7 sets, daily range): BP systolic 106–144; BP diastolic 55–81
[2019-04-16 06:25] LABS: ALBUMIN 2.6 g/dL (3.5-5.0); ALBUMIN/GLOBULIN RATIO 0.8 (0.8-2.0); ALKALINE PHOSPHATASE 62 IU/L (40-150); ANION GAP 17.6 mmol/L (8-16); BLOOD UREA NITROGEN 73 mg/dL (7-26); BUN/CREATININE RATIO 9 (6-25); CALCIUM 8.6 mg/dL (8.4-10.2); CARBON DIOXIDE 24 mmol/L (22-29); CHLORIDE 105 mmol/L (98-107); CREATININE, SERUM 8.11 mg/dL (0.72-1.25); EST GLOMERULAR FILTRATION RATE 7 ML/MIN (60-); GLUCOSE 95 mg/dL (74-118); POTASSIUM 3.6 mmol/L (3.5-5.1); SODIUM 143 mmol/L (136-145)
[2019-04-16 06:26] LABS: ALANINE AMINOTRANSFERASE < 6 IU/L (0-55)
[2019-04-16] MEDS: SODIUM BICARBONATE 8.4% SYRING 150 ML in DEXTROSE 5% 1,000 ML IV SCH (07:09)
--- NOTE | 2019-04-16 07:09 | NUR ---
Report given to oncoming nurse. Patient resting in bed, no s/s of distress or c/o pain at this time. All safety measures in place.
--- NOTE | 2019-04-16 07:12 | NUR ---
BEDSIDE SHIFT REPORT COMPLETED WITH PM RN, PT SLEEPING, EASILY AROUSED, NO DISTRESS, NO COMPLAINTS. WILL CONTINUE TO MONITOR.
[2019-04-16 07:57] LABS: BASOPHILS % 0.3 % (0.0-1.0); EOSINOPHILS # (AUTO) 0.1 (0.0-0.4); HEMATOCRIT 27.8 % (38.2-49.6); HEMOGLOBIN 9.2 g/dL (14.0-18.0); LYMPHOCYTES # (AUTO) 0.3 (1.0-3.2); LYMPHOCYTES % 7.8 % (18.0-39.1); MEAN CORPUSCULAR HEMOGLOBIN 31.1 pg (28-32); MEAN CORPUSCULAR HGB CONC 33.1 g/dL (31-35); MEAN CORPUSCULAR VOLUME 93.9 fL (81-99); MONOCYTES # (AUTO) 0.4 (0.2-0.8); MONOCYTES % 11.3 % (4.4-11.3); NEUTROPHILS # (AUTO) 2.7 (2.1-6.9); PLATELET COUNT 65 x10e3/uL (140-360); RED BLOOD COUNT 2.96 x10e6/uL (4.3-5.7); RED CELL DISTRIBUTION WIDTH 15.7 % (11.7-14.4)
[2019-04-16] MEDS: SODIUM BICARBONATE 650 MG TAB PO SCH ×3 (08:15→20:12)
[2019-04-16 11:00] LABS: BAND NEUTROPHILS % (MANUAL) 8 %; EOSINOPHILS % (MANUAL) 2 % (0-7)
[2019-04-16 11:02] LABS: LYMPHOCYTES % (MANUAL) 8 % (19-48); MONOCYTES % (MANUAL) 7 % (3.4-9.0); NEUTROPHILS % (MANUAL) 75 % (40-74)
[2019-04-16 11:03] LABS: PLATELET ESTIMATE MODERATELY DECREASED
[2019-04-16 11:04] LABS: PLATELET MORPHOLOGY COMMENT NORMAL; RBC MORPHOLOGY COMMENT NORMAL
--- NOTE | 2019-04-16 15:20 | NUR ---
DR. BOOKER AT BEDSIDE, SPOKE WITH PT REGARDING LAB RESULTS. DR BOOKER STATES AT THIS TIME RUSH NO LONGER NECESSARY FROM HIS STANDPOINT. DR BOOKER ORDERED FOR PT TO FINISH CURRENT BAG OF IV FLUIDS THEN SALINE LOCK PT. HE ALSO ORDERED LABS FOR THE AM. PAGED DR MARTINS FOR ORDER TO REMOVE RUSH. AWAITING CALLBACK.
--- NOTE | 2019-04-16 15:40 | NUR ---
DR MARTINS CALLED BACK, STATES OKAY TO DISCONTINUE RUSH.
--- NOTE | 2019-04-16 15:56 | NUR ---
RUSH REMOVED PER DR MARTINS'S ORDER. TIP INTACT, 900ML OUTPUT NOTED. PT TOLERATED WELL.
--- NOTE | 2019-04-16 18:09 | NUR ---
pt voided twice since jacobs removal, once 400ml and just now 325 ml. post-void residual showed 86ml on bladder scan. pt ambulating well to , voiding without difficulty, no complaints at this time.
[2019-04-17] VITALS: BP_SYST 126; BP_SYST 130; BP_DIAS 62; BP_DIAS 64
[2019-04-17 05:42] LABS: BASOPHILS % 0.4 % (0.0-1.0); EOSINOPHILS # (AUTO) 0.1 (0.0-0.4); EOSINOPHILS % 2.3 % (0.0-6.0); HEMATOCRIT 30.9 % (38.2-49.6); HEMOGLOBIN 9.8 g/dL (14.0-18.0); LYMPHOCYTES # (AUTO) 0.3 (1.0-3.2); MEAN CORPUSCULAR HEMOGLOBIN 29.9 pg (28-32); MEAN CORPUSCULAR HGB CONC 31.7 g/dL (31-35); MEAN CORPUSCULAR VOLUME 94.2 fL (81-99); MONOCYTES # (AUTO) 0.5 (0.2-0.8); NEUTROPHILS # (AUTO) 1.7 (2.1-6.9); NEUTROPHILS % 65.9 % (38.7-80.0); PLATELET COUNT 56 x10e3/uL (140-360); RED BLOOD COUNT 3.28 x10e6/uL (4.3-5.7); RED CELL DISTRIBUTION WIDTH 15.2 % (11.7-14.4)
[2019-04-17 06:03] LABS: ALANINE AMINOTRANSFERASE < 6 IU/L (0-55); ALBUMIN 2.7 g/dL (3.5-5.0); ALBUMIN/GLOBULIN RATIO 0.9 (0.8-2.0); ALKALINE PHOSPHATASE 62 IU/L (40-150); ANION GAP 17.3 mmol/L (8-16); BLOOD UREA NITROGEN 64 mg/dL (7-26); BUN/CREATININE RATIO 9 (6-25); CALCIUM 8.7 mg/dL (8.4-10.2); CARBON DIOXIDE 26 mmol/L (22-29); CHLORIDE 103 mmol/L (98-107); CREATININE, SERUM 7.07 mg/dL (0.72-1.25); EST GLOMERULAR FILTRATION RATE 8 ML/MIN (60-); GLUCOSE 91 mg/dL (74-118); POTASSIUM 3.3 mmol/L (3.5-5.1); SODIUM 143 mmol/L (136-145)
[2019-04-17 07:47] VITALS: BP 137/74
[2019-04-17] MEDS: SODIUM BICARBONATE 650 MG TAB PO SCH ×3 (08:40→20:44)
[2019-04-17] MEDS: FLUCONAZOLE 100 MG TAB PO SCH (08:40)
--- NOTE | 2019-04-17 10:21 | NUR ---
NOTIFIED DR. LAU OF PATIENT'S CREATININE LEVEL OF 7.07 THE PATIENT REQUESTED- DR. LAU AWARE AND NO NEW ORDERS GIVEN.
[2019-04-17 11:31] VITALS: BP 124/58
[2019-04-17 11:40] VITALS: BP 124/58
--- NOTE | 2019-04-17 13:38 | Consultation ---
DATE OF CONSULTATION: This is a patient of Dr. Card, admitted to [facility] in [place], [place]. HISTORY OF PRESENT ILLNESS: Mr. Wolf is a pleasant 58-year-old gentleman with a history of lung cancer, receiving chemotherapy per my discussion with him. The last dose of chemotherapy was about 17 days ago with a history of chronic hydronephrosis bilateral with chronic renal insufficiency. The patient follows up with Dr. Card as outpatient in regard to his kidney function and other labs that he needs. On routine labs, his creatinine was found to be around 8 and therefore patient was transferred to the hospital for evaluation and treatment. The patient was seen by multiple specialties including Renal and Urology. The patient is well-known to Urology with bilateral stent, kidneys and apparently he follows up with Dr. Zendejas as an outpatient for exchange of the stents. The patient was admitted to the hospital and further workup showed blood culture with Gram positive rods x1 and one blood culture was negative. Urine culture done x3 and all three showing yeast with identification and sensitivities pending. His white count was 5.31 and going down to 2.61. His platelet was 42, improved to 56. His creatinine on admission was 8.85 and improving to 7.07. CT of abdomen and pelvis showed severe right hydronephrosis with increased compared to prior exam due to right internal urethral stent. Also showed left renal atrophy with moderate left hydronephrosis, which slightly decreased compared with prior exam. Also showed two internal ureteral stents. In addition, CT showed prostatomegaly with right inguinal adenopathy and bilateral fat containing inguinal hernias. The patient also had renal ultrasound, which showed mild to moderate right and minimal left residual hydronephrosis status post ureteral stent placement. Infectious Disease consulted for the management of the fungemia. note noted and also renal note noted. PAST MEDICAL HISTORY: Includes lung cancer, chronic kidney disease stage 4, hyperlipidemia, enlarged prostate, hypothyroidism. SOCIAL HISTORY: Reviewed. No recent history of tobacco or ethanol use. No history of illicit drugs. The patient is and seems to have a good family support. PAST SURGICAL HISTORY: As mentioned above, the patient has lobectomy on the right side due to lung cancer, also stent placement by urologist. IV access line placement. ALLERGIES: ROCEPHIN AND PROMETHAZINE. MEDICATIONS: Medication list reviewed. As far as Infectious Disease point of view, the patient is on Diflucan. LABORATORY DATA: Labs reviewed as mentioned above. REVIEW OF SYSTEMS: No nausea, vomiting, fever, chills, chest pain, shortness of breath, headache, dysuria, polyuria. As a matter of fact, the patient was asymptomatic on admission. PHYSICAL EXAMINATION: GENERAL: Alert and oriented x4, very pleasant, good historian. VITAL SIGNS: Temperature 97.2. Vital signs reviewed the entire admission. The patient has no fever documented, pulse 87, respirations 18, and blood pressure 144/81 with O2 saturation of 100%. CV: S1, S2. CHEST: Equal expansion. Decreased breath sounds mostly on the right. ABDOMEN: Soft, obese, and nontender. HEENT: Moist. No pallor. No JVD. EXTREMITIES: Weak. No acute distress. ASSESSMENT AND PLAN: A very pleasant 58-year-old gentleman with a history of lung cancer, chronic kidney disease stage 4, and pancytopenia. The patient was found to be in acute renal failure with creatinine level of 8 on routine lab work at the office, therefore, admitted for evaluation and treatment. The patient with bilateral hydronephrosis may have contributed to elevation of creatinine and renal failure. Urine culture showed yeast. Blood culture one gram-positive rods and one is clean. We will continue with Diflucan at this point, the patient is on 100 mg daily. We will try to speak with urologist. The patient may end up getting nephrostomy with possibility of irrigation with amphotericin B and this was discussed also with Dr. Britt. Continue with Diflucan. Monitor patient clinically. Further management of this patient is based on daily finding on laboratory and physical examination. This case was discussed with Dr. Britt in detail. Thank you for consult. Dictated by Anibal Issa PA-C (Al) Won Britt MD /MODL /[id number]
[2019-04-17] MEDS ORDERED: POTASSIUM CHLORIDE 20 MEQ TAB CR PO ONE (14:40)
[2019-04-17 15:29] VITALS: BP 125/58
--- NOTE | 2019-04-17 19:17 | NUR ---
PATIENT SITTING IN A CHAIR- IN STABLE CONDITION WITH NO S/S OF RESPIRATORY DISTRESS. NO PAIN VOICED. CALL LIGHT IS WITHIN REACH, PATIENT INSTRUCTED TO CALL FOR ASSISTANCE NEEDED. BEDSIDE SHIFT REPORT GIVEN TO ONCOMING NURSE.
[2019-04-17 20:00] VITALS: BP 135/59
[2019-04-18] VITALS: BP_SYST 133; BP_DIAS 22; BP_DIAS 72
[2019-04-18 04:00] VITALS: BP 130/79
--- NOTE | 2019-04-18 07:10 | NUR ---
PATIENT IS ALERT, AWAKE, AND IN STABLE CONDITION WITH NO S/S OF RESPIRATORY DISTRESS. PATIENT DENIES PAIN. CALL LIGHT IS WITHIN REACH, PATIENT INSTRUCTED TO CALL FOR ASSISTANCE NEEDED.
[2019-04-18 07:23] LABS: BASOPHILS % 0.4 % (0.0-1.0); EOSINOPHILS # (AUTO) 0.1 (0.0-0.4); EOSINOPHILS % 2.8 % (0.0-6.0); HEMATOCRIT 32.7 % (38.2-49.6); HEMOGLOBIN 10.5 g/dL (14.0-18.0); LYMPHOCYTES # (AUTO) 0.4 (1.0-3.2); LYMPHOCYTES % 14.1 % (18.0-39.1); MEAN CORPUSCULAR HEMOGLOBIN 30.3 pg (28-32); MEAN CORPUSCULAR HGB CONC 32.1 g/dL (31-35); MEAN CORPUSCULAR VOLUME 94.5 fL (81-99); MONOCYTES # (AUTO) 0.5 (0.2-0.8); MONOCYTES % 18.1 % (4.4-11.3); NEUTROPHILS # (AUTO) 1.6 (2.1-6.9); NEUTROPHILS % 63.8 % (38.7-80.0); PLATELET COUNT 71 x10e3/uL (140-360); RED BLOOD COUNT 3.46 x10e6/uL (4.3-5.7); RED CELL DISTRIBUTION WIDTH 15.2 % (11.7-14.4)
[2019-04-18 07:54] VITALS: BP 136/60
[2019-04-18 08:14] LABS: ANION GAP 16.7 mmol/L (8-16); CALCIUM 9.1 mg/dL (8.4-10.2); CREATININE, SERUM 6.55 mg/dL (0.72-1.25); POTASSIUM 3.7 mmol/L (3.5-5.1)
[2019-04-18] MEDS: FLUCONAZOLE 100 MG TAB PO SCH (08:34)
[2019-04-18] MEDS: SODIUM BICARBONATE 650 MG TAB PO SCH (08:34)
[2019-04-18 08:50] VITALS: BP 136/60
[2019-04-18 11:40] VITALS: BP 119/66
--- NOTE | 2019-04-18 14:46 | NUR ---
PATIENT DISCHARGE HOME -PATIENT OFF THE UNIT AT 1358 ACCOMPANIED BY PCT PER AMBULATION TO THE FRONT LOBBY. PATIENT IS IN STABLE CONDITION WITH NO S/S OF RESPIRATORY DISTRESS. NO PAIN VOICED. IV REMOVED WITH TIP INTACT. DISCHARGE TEACHING AND INSTRUCTIONS GIVEN TO THE PATIENT.
--- NOTE | 2019-04-29 18:35 | Discharge Summary ---
DISCHARGE DIAGNOSES: 1. Acute on chronic renal failure. 2. Stage IV lung cancer. 3. Pancytopenia. HISTORY OF PRESENT ILLNESS AND HOSPITAL COURSE: See hospital chart for full details. The patient is a gentleman, well known to me with a history of stage IV lung cancer, ongoing chemotherapy treatment, who presented with worsening of his acute on chronic renal failure secondary to his bilateral hydronephrosis so he was brought in and seen by Dr. Zendejas, Dr. Waldron, where he had his stents replaced without any complication, which definitely helped, improved his creatinine function. Of note, the patient was pancytopenic when he had presented to the hospital due to his recent chemotherapy, so he was seen by Dr. Clark. Once his platelets were transfused, he was able to safely undergo his procedure without any complications. His counts were recovering at the time of discharge. He will follow up with me in 1 week to do repeat labs as an outpatient. Please see hospital chart for full details. MD RANDY Steiner/KAITY /[id number]
--- NOTE | 2019-06-12 03:53 | Operative Report ---
DATE OF PROCEDURE: 04/14/2019 SURGEON: Jorge Zendejas MD PREOPERATIVE DIAGNOSES: 1. Cystourethroscopy with complicated removal of bilateral indwelling ureteral stents (separate procedure performed for the diagnosis of stents). 2. Bilateral cystoscopy with bilateral dilation of ureteral stricture (separate procedure performed for the ureteral strictures). 3. Radiological services for supervision and interpretation of stricture dilation. 4. Cystourethroscopy and insertion of a total of four stents, two on each side (separate procedure performed to relieve the hydronephrosis). 5. Interpretation of retrograde ureteropyelography. 6. Supervision of fluoroscopy, no radiologist present. ANESTHESIA: General. COMPLICATIONS: None. CLINICAL SUMMARY: Paulo Wolf is a complicated 58-year-old man. Please refer to prior operative dictation and consultation notes as well as the office chart for his complex history. The patient is brought for the above procedure. He is aware of the risks of bleeding, infection, injury to adjacent structures, need for additional procedures and elected to proceed. OPERATIVE PROCEDURE IN DETAIL: Informed consent was verified. Paulo Wolf was properly identified, taken to the operating room, placed on the cystoscopy table in supine position. Anesthesia was uneventfully begun. The patient was then carefully and gently repositioned in dorsal lithotomy position with all pressure points well padded. His genitalia were prepared and draped in usual sterile fashion. The cystoscope sheath with the visual obturator in place was atraumatically inserted into the patient's urethra. It was guided unremarkable to distal urethra through the prostatic urethra, which exhibited BPH into the patient's bladder, which identified stents as well as some encrustation consistent with Emily. There were no suspicious lesions. There were no tumors. There were no stones. A guidewire was then placed into the right ureter and guided to the level of the patient's kidney. Both stents were then removed and discarded. Double-lumen ureteral catheter was then placed over the guidewire and guided to the level of the patient's kidney. Contrast was injected. Following this dilation of the ureter, the dilator was removed following leaving two wires behind. With cystoscopic fluoroscopic guidance, two separate right-sided indwelling ureteral stents were then placed. They were coiled in the patient's kidneys as well as the patient's bladder. The retaining sutures were removed. An identical set of maneuver was performed on the left hand side. Interpretation of retrograde ureteropyelography contrast was instilled in retrograde fashion bilaterally. There was chronic hydronephrosis that was noted. There was no extravasation. Stents were in good position, coiled in the patient's kidney as well as the patient's bladder at the end of the case. The patient's bladder was drained. Digital rectal examination with placement of a belladonna opium suppository revealed a large prostate that is smooth, non-fluctuant without any nodules. The patient was then uneventfully reversed from anesthesia and taken to recovery in stable condition. There were no complications to the procedure. He tolerated the procedure well. We will proceed with routine postoperative care and of course ongoing urological followup. This patient's ureteral obstruction is proving more and more complex and at some point, I believe the patient may be going into renal failure that we will not be able to solve with ureteral stent changing. We will plan on changing the patient's ureteral stents on a frequent basis as necessary and defer management of the patient's challenging candiduria to his primary care physician and potential Infectious Disease's showroom consultant. Jorge Zendejas MD OH/MODL /[id number]
== END 2019-04-18 13:58 | disposition home or self-care (01) | DRG 659 ==
LOC: ER 12:37 → ERHOLD 13:53 → MED/SURG3 18:23
PROVIDERS: ADMIT Internal Medicine; ATTEND Internal Medicine
PROC: 0TP98DZ Removal of Intraluminal Device from Ureter, Via Natural or Artificial Opening Endoscopic (ICD-10-PCS; principal; 2019-04-13)
PROC: 0T788DZ Dilation of Bilateral Ureters with Intraluminal Device, Via Natural or Artificial Opening Endoscopic (ICD-10-PCS; 2019-04-13)
PROC: BT141ZZ Fluoroscopy of Kidneys, Ureters and Bladder using Low Osmolar Contrast (ICD-10-PCS; 2019-04-13)
PROC: 0T7D8ZZ Dilation of Urethra, Via Natural or Artificial Opening Endoscopic (ICD-10-PCS; 2019-04-13)
PROC: 30233N1 Transfusion of Nonautologous Red Blood Cells into Peripheral Vein, Percutaneous Approach (ICD-10-PCS; 2019-04-13)
DX: T83.593A Infection and inflammatory reaction due to other urinary stents, initial encounter (principal); D61.810 Antineoplastic chemotherapy induced pancytopenia; N17.9 Acute kidney failure, unspecified; E87.2 Acidosis; E87.1 Hypo-osmolality and hyponatremia; B37.49 Other urogenital candidiasis; C34.90 Malignant neoplasm of unspecified part of unspecified bronchus or lung; N18.4 Chronic kidney disease, stage 4 (severe); N13.30 Unspecified hydronephrosis; D69.6 Thrombocytopenia, unspecified; I12.9 Hypertensive chronic kidney disease with stage 1 through stage 4 chronic kidney disease, or unspecified chronic kidney disease; Z96.0 Presence of urogenital implants; D63.8 Anemia in other chronic diseases classified elsewhere; E88.09 Other disorders of plasma-protein metabolism, not elsewhere classified; T45.1X5A Adverse effect of antineoplastic and immunosuppressive drugs, initial encounter; N40.0 Benign prostatic hyperplasia without lower urinary tract symptoms; N35.919 Unspecified urethral stricture, male, unspecified site
CPT/HCPCS: 36415; 74176; 74420; 76770; 80048; 80053; 81001; 83605; 83735; 85025; 86850; 86900; 86920; 87040; 87071; 87086; 87205; 99285; C1758; C1769; C2617; J1200; J1442; J1450; J1940; J2001; J2405; J3010; J7030; J7050; J7070; P9016; P9034; Q9967

== ENCOUNTER → 2019-05-19 | Day surgery (SDC) | payer BC ==
[~2019-05-19] MED LIST changes: +B&O 60MG R/S 60 MG SUPP PR ONE; +FENTANYL CITRATE/PF 100MCG/2 ML INJ ONE; +FLUCONAZOLE 200 MG/100 ML 100 ML IV ONE; +IOPAMIDOL 300MG/ML 50ML INFUS..BTL IV ONE; +LEVOFLOXACIN 250MG/D5W 50ML 50 ML ONE; +LIDOCAINE HCL 2% JELLY 5 ML TUBE ONE; +LIDOCAINE HCL 2% LOCAL INJ 5 ML SDV VIAL INJ ONE; +MIDAZOLAM HCL 2 MG/2 ML VIAL ONE; +ONDANSETRON HCL INJ 2MG/ML 2ML 2 MG/ML VIAL ONE; +PROPOFOL IV EMULSION 10 MG/ML 20 ML VIAL ONE; +SEVOFLURANE INHAL SOLN 250 ML PEN BTL ONE
--- OUTSIDE RECORDS SUMMARY | 2019-05-19 11:20 | XMS REPORT | Summary of Care ---
Author Author [facility] Organization [facility] Address Unknown Phone Unavailable Care Team Providers Care Asset Protection Specialist Name Role Phone Robi Card PCP Reason for Visit * Reason Comments Skin Check total body * Consult, Test & Treat (Routine) Referred By Contact Referred To Contact Status Reason Specialty Diagnoses / Procedures Silvia Larose MD [address] [place] [address] [address] [place] [address] Silvia Larose MD [address] [place] [address] [address]th [address] [place] [address] Authorized Dermatology Diagnoses Encounter for screening for malignant neoplasm of skin ok per dr. josh simons [place] UNLISTED E/M SERVICE ESTABLISHED OFFICE VISIT Encounter Details Care Team Description Date Type Department Silvia Larose MD [address] [place] [address] [address]th [address] [place] [address] [phone] Skin Check (total body) 04/25/2019 Office Visit [facility] Dermatology [address] [place] [address] [id number] [place] [address] Allergies Comments Active Allergy Reactions Severity Noted Date Makes nausea worse Makes nausea worse Promethazine Nausea And 06/05/2015 Vomiting tingling lips Ceftriaxone Sodium In 03/16/2018 Dextrose documented as of this encounter (statuses as of 04/25/2019) Medications End Date Status Medication Sig Dispensed [...] Gastroesophageal reflux disease without esophagitis Active B Ihdewuf-W-W-Zn (MYBEC Take by 0 OR)Indications: Malignant mouth daily. neoplasm of lower lobe, right bronchus or lung (HCCode) Active liothyronine (CYTOMEL) 25 Take 25 mcg 0 MCG tabletIndications: by mouth Adenocarcinoma of lung, daily. Take 2 right (HCCode) tabs once daily Active senna (RA SENNA) 8.6 MG Take [...] Active VALACYCLOVIR HCL OR Take by 0 mouth as needed. 1/2 tab daily Active NIFEdipine (ADALAT CC) 30 Take 30 mg by 0 MG CR tablet mouth daily. Active clobetasol (TEMOVATE) Apply 50 mL 11 0.05 % external solution topically 9 twice a day as needed Active triamcinolone (KENALOG) Apply to 454 g 3 0.1 % cream affected area 9 twice a day as needed Additional Information Patient taking differently: PRN, Apply to affected area twice a day as needed, Reason: Other / Enter Comment, Reported on 03/08/2019 9:50 AM Active triamcinolone (KENALOG) Apply to 454 g 3 0.1 % ointment affected area 9 2 times daily. Avoid face/groin/ax illae Active ondansetron (ZOFRAN) 4 MG Take 1 Tab by 15 Tab 3 tablet mouth every 8 9 hours as needed for Nausea. Active acetaminophen (TYLENOL) As Needed 0 500 mg tablet Active hydrocodone-acetaminophen TAKE ONE (1) 0 (NORCO) 10-325 MG per TABLET(S) BY 9 tablet MOUTH EVERY SIX TO EIGHT HOURS NEEDED. Active cephALEXin (KEFLEX) 500 Take 500 mg 0 MG capsule by mouth two times daily. 04/27/2019 Active Dabrafenib Mesylate 75 MG Take 150 mg 120 Cap 6 CAPS by mouth two 9 times daily for 30 days. Additional Information Patient not taking. Reported on 04/19/2019 9:43 AM 04/27/2019 Active Trametinib Dimethyl Take 2 mg by 30 Tab 6 Sulfoxide 2 MG TABS mouth daily 9 for 30 days. 04/25/2019 Discontinued (*Therapy completed) predniSONE (DELTASONE) 10 4 tabs by 80 Tab 2 MG tablet mouth for 7 9 days then 3 for 7 days then 2 for 7 days then 1 for 7 days then 1/2 tab for 7 days 04/25/2019 Discontinued (*Therapy completed) gabapentin (NEURONTIN) as needed. 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 We recommend a full body check annually (or at the frequency determined at your visit). If your hairdresser, eye doctor, or dentist ever note anything concerning please let us know. Please let us know if you notice anything suspicious between visits and be sure to use sun protection! For the biopsy site(s) Leave the bandage on until tomorrow After removing the bandage, wash the areas with soap and water and then apply an ointment like Vaseline, Aquaphor or Cerave healing ointment We generally recommend against using neosporin, polysporin or triple antibiotic as these have high rates of allergy. If there is evidence of infection (redness , pus drainage) and you feel you may need an antibiotic ointment please discuss with your doctor. Apply a new bandage Repeat daily until healed Please let your doctor know if you develop severe pain, pus, bleeding (that does not stop after 20 minutes of direct pressure), or a fever If you have pain you may take tylenol as needed. Please do not take ibuprofen, aspirin, or any similar product as this may increase the risk of bleeding (unles s you already take these medications or are directed to do so by your doctor). I f you routinely take aspirin or one of the aforementioned medications you do not need to stop them but you may experience some additional light bleeding after t he procedure. Please let me know if you have any questions or concerns regarding this issue. Please call if you have any questions or concerns. [employer] documented in this encounter Progress Notes * Silvia Larose MD - 04/25/2019 11:30 AM [employer] This is a 58 y.o. wm who presents for full body skin check The patient is concerned about skin cancer and points to multiple areas of marco rn Patient is presently complaining of spots on body Patient's history is notable for dn and nmsc severely dysplastic nevus left low back, has not yet had excision H/o lung cancer, off keytruda, s/p chemotherapy will start XRT soon and then he will be starting a BRAF/MEK inhibitor combination He requires a baseline skin check then every 2 months and for 6 months after com pletion Physical exam: well developed, well nourished, anicteric wm, alert and oriented , non anxious, in no acute distress. Total body exam. The following areas were examined as part of the total body exam: scalp, ears, face, eyelids, lips, neck, chest, abdomen, back, genital area, buttocks, bilateral upper extremities, bila teral lower extremities, bilateral hands, bilateral feet and nails. All were fo und to be normal aside from the following findings: 1. Regular brown/rodriguez/pink macules/papules face, torso, extremities 2. Well healed scars 3. [place] scar left low back 4. Irregular brown macule right chest Assessment and Plan: 1. Nevi, lentigines, Seborrheic keratoses: -self skin checks -Sun protection discussed -yearly exams or as directed -discussed signs of worrisome change Also recommended yearly dental exams, notification if hairdresser notices anyth ing abnormal 2. H/o nmsc: No evidence of recurrence, follow History of dn: No evidence of recurrence, follow 3. bx proven severely dysplastic nevus: pt still needs re-excision, will message regarding timing and will contact patient to discuss 4. Atypical nevus R/O dysplastic nevus: After risks and benefits explained, cons ent obtained, tangential biopsy x 1 was performed on right chest to remove epide rmal and partial dermal tissue for the purpose of diagnostic pathologic examinat ion, patient tolerated well, Wound care reviewed rv will be done every 2 months but will discuss with Dr. Irving re: whether juan r t will start immediately or only once his new regimen is initiated as he has not yet completed XRT [employer] documented in this encounter Plan of Treatment Care Team Description Date Type Specialty Mesfin Ro MD [address] [facility] [address] [place] [address] [place] [address] [phone] 05/04/2019 Office Visit Urology Rimma Irving MD [address] [facility] [address] [place] [address] [phone] 05/17/2019 Office Visit Hematology and Oncology Order Schedule Name Type Priority Associated Diagnoses Ordered: 04/25/2019 [place] TANGENTIAL BIOPSY SKIN [place] Charge Routine Neoplasm of uncertain SINGLE LESION behavior of skin Health Maintenance Due Date Last Done Comments TETANUS SHOT (ADULT) 1973 BMI FOLLOW UP PLAN 1976 HIV SCREENING 1976 COLON CANCER SCREENIN07/30/2021 07/30/2016 COLONOSCOPY HEPATITIS C SCREENING Completed 08/19/2016 FLU VACCINE > 6 MONTHS Completed 01/14/2019 documented as of this encounter Results Not on filedocumented in this encounter Visit Diagnoses Diagnosis Neoplasm of uncertain behavior of skin - Primary Multiple nevi Benign neoplasm of skin, site unspecified Keratosis seborrheica Other seborrheic keratosis Lentigines Other dyschromia Personal history of skin cancer Personal history of other malignant neoplasm of skin H/O dysplastic nevus Personal history of diseases of skin and subcutaneous tissue documented in this encounter Insurance Type Payer Benefit Subscriber ID Effective Phone Address Plan / Dates Group [employer] BLUE [employer] BLUE xxxxxxxxxxxx 2017-P [address] [place] [place] [id number] [employer] [facility] [id number] BCBS documented as of this encounter
--- OUTSIDE RECORDS SUMMARY | 2019-05-19 11:21 | XMS REPORT | Summary of Care ---
Author Author [facility] Organization [facility] Address Unknown Phone Unavailable Care Team Providers Care Cloth Checker Name Role Phone Robi Card PCP Reason for Visit * Reason Comments Hydronephrosis * Consult, Test & Treat (Routine) Referred By Contact Referred To Contact Status Reason Specialty Diagnoses / Procedures Robi Card [address] [facility] [address] [place] [address] Corey Vizcarra MD [address] [address] Authorized Diagnoses Unspecified renal colic restricted ureter Encounter Details Care Team Description Date Type Department Corey Vizcarra MD [address] [address] Hydronephrosis 05/04/2019 Office Visit [facility] Urology [address] [facility]. [address], [place] [address] Allergies Comments Active Allergy Reactions Severity Noted Date Makes nausea worse Makes nausea worse Promethazine Nausea And 06/05/2015 Vomiting tingling lips Ceftriaxone Sodium In 03/16/2018 Dextrose documented as of this encounter (statuses as of 05/04/2019) Medications End Date Status Medication Sig Dispensed [...] Gastroesophageal reflux disease without esophagitis Active B Wjhhuix-J-I-Zn (MYBEC Take by 0 OR)Indications: Malignant mouth [...] MOUTH EVERY SIX TO EIGHT HOURS NEEDED. 05/04/2019 Discontinued (*Therapy completed) cephALEXin (KEFLEX) 500 Take 500 mg 0 MG capsule by mouth two times daily. 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 09/25/2017 documented as of this encounter (statuses as of 05/04/2019) Social History Date Tobacco Use Types Packs/Day [...] Signs Reading Time Taken Comments Vital Sign 100/71 05/04/2019 10:02 AM [facility] [employer] Blood Pressure 91 05/04/2019 10:02 AM [facility] [employer] Pulse 36.6 C (97.8 F) 05/04/2019 10:02 AM [facility] [employer] Temperature - - Respiratory Rate - - Oxygen Saturation - - Inhaled Oxygen Concentration 113.4 kg (250 lb) 05/04/2019 10:02 AM [facility] [employer] Weight 175.3 cm (5' 9") 05/04/2019 10:02 AM [facility] [employer] Height 36.92 05/04/2019 10:02 AM [facility] [employer] Body Mass Index documented in this encounter Progress Notes * Corey Vizcarra MD - 05/04/2019 9:30 AM [facility] [employer] HPI Mr. Wolf is a medically complex 58-year-old gentleman with a history of metastat ic lung cancer, CK D, and bilateral obstructive uropathy with chronic indwellin g stents who is self referred to me for 2nd opinion. A review of imaging studie s in [facility] in 2018 showed indwelling stents. Although not clearly kiet cribed why, there are 2 stents in both systems for a total of 4 stents, each 7 F rench. Review of his lab work in the [facility] system in 04/17 and 03/16 shows a c reatinine anywhere between 3.3 and 5.9. He has a history of metastatic lung can cer that was discovered during a kidney stone passage event. He's had several e vents over many years but generally passes them on his own and is never required surgery. When his lung cancer was discovered, he underwent chemotherapy, radia tion therapy, and finally right lung surgery. Over the years he has continued t o have various metastases that have come and gone with treatment and he's been o n and off several different medical regimens. Somewhere around 2015 he was diag nosed with ureteral obstruction and worsening kidney failure while being worked up for back pain. Dr. Jorge Zendejas has been managing him from the very beginning with bilateral 77 [place] stents. However he's been plagued with stent malfuncti on due to what sounds like a yeast overgrowth. He will does have intermittent w malik cloudy urine. It sounds as though he's been treated repeatedly but is uncl ear the exact type of yeast or the sensitivity patterns. At this point he is re quiring stent changes as much as every 5 weeks, heralded by acute on chronic cortez al failure. His baseline creatinine is around 3.3-3.8. His stents were exchang ed at the end of March 2019 and his creatinine is 3.8. He is needing to start radiation treatment yet again on another metastasis. Importantly I don't have any images to review today Past Medical History: Diagnosis Date Adenocarcinoma of lung (HCCode) Borderline diabetes DVT (deep venous thrombosis) (HCCode) Kidney stone Past Surgical History: Procedure Laterality Date HX KYPHOSIS SURGERY HX LOBECTOMY HX TONSILLECTOMY HX URETER STENT PLACEMENT Current Outpatient Medications: acetaminophen (TYLENOL) 500 mg tablet, As Needed, Disp: , Rfl: B Dsmhfrx-X-E-Zn (MYBEC OR), Take by mouth daily., Disp: , Rfl: clobetasol (TEMOVATE) 0.05 % external solution, Apply topically twice a day as needed, Disp: 50 mL, Rfl: 11 finasteride (PROSCAR) 5 MG tablet, Take 5 mg by mouth daily., Disp: , Rfl: hydrocodone-acetaminophen (NORCO) 10-325 MG per tablet, TAKE ONE (1) TABLET (S) BY MOUTH EVERY SIX TO EIGHT HOURS NEEDED., Disp: , Rfl: 0 levothyroxine (SYNTHROID) 75 MCG tablet, Take 75 mcg by mouth daily., Disp: , Rfl: liothyronine (CYTOMEL) 25 MCG tablet, Take 25 mcg by mouth daily. Take 2 ta bs once daily, Disp: , Rfl: loratadine (CLARITIN) 10 MG tablet, Take 10 mg by mouth daily as needed., D isp: , Rfl: NIFEdipine (ADALAT CC) 30 MG CR tablet, Take 30 mg by mouth daily., Disp: , Rfl: ondansetron (ZOFRAN) 4 MG tablet, Take 1 Tab by mouth every 8 hours as need ed for Nausea., Disp: 15 Tab, Rfl: 3 pravastatin (PRAVACHOL) 40 MG tablet, Take 40 mg by mouth daily., Disp: , R fl: senna (RA SENNA) 8.6 MG tablet, Take 2 tabs by mouth daily, Disp: 60 Tab, R fl: 4 Tamsulosin HCl 0.4 MG CAPS, Take 0.4 mg by mouth daily. Take 2 tabs by mout h daily, Disp: , Rfl: triamcinolone (KENALOG) 0.1 % cream, Apply to affected area twice a day as needed (Patient taking differently: as needed. Apply to affected area twice a da y as needed), Disp: 454 g, Rfl: 3 triamcinolone (KENALOG) 0.1 % ointment, Apply to affected area 2 times marissa y. Avoid face/groin/axillae, Disp: 454 g, Rfl: 3 VALACYCLOVIR HCL OR, Take by mouth as needed. 1/2 tab daily, Disp: , Rfl: Allergies Allergies Allergen Reactions Phenergan [Promethazine] Nausea And Vomiting Makes nausea worse Makes nausea worse Rocephin [Ceftriaxone Sodium In Dextrose] tingling lips Social History Tobacco Use Smoking status: Never Smoker Smokeless tobacco: Never Used Substance Use Topics Alcohol use: No Frequency: Never Drug use: Not Currently Family history Family History Problem Relation Name Age of Onset Prostate Cancer Father Review of Systems Not captured Physical Exam Vitals reviewed. Constitutional: PALOR; He is oriented to person, place, and time. He appears wel l-developed and well-nourished. No distress. HENT: Head: Normocephalic and atraumatic. Pulmonary/Chest: Effort normal. No respiratory distress. Abdominal: Soft. He exhibits no distension and no mass. There is no tenderness. There is no rebound and no guarding. Musculoskeletal: Normal range of motion. He exhibits no tenderness. Neurological: He is alert and oriented to person, place, and time. Skin: Skin is warm and dry. No rash noted. He is not diaphoretic. No erythema. N o pallor. Psychiatric: He has a normal mood and affect. His behavior is normal. Judgment a nd thought content normal. Assessment: Mr. Wolf is a 58-year-old gentleman with metastatic lung cancer and bilateral obstructive uropathy managed by indwelling stents. We had a very long discussion today. It sounds as though his urologist is entertaining nephrostomy tube placement and anterograde instillation of amphotericin. While this is a reasonable strategy, it can also be dangerous. One needs to make sure the neph rostomy tube tract is healed prior to starting to prevent absorption. One also needs to make sure there is no downstream stent dysfunction or obstruction becau se otherwise there will be high pressure irrigation of amphotericin which will c ause systemic absorption. We also discussed the fact that double stenting can b e a good strategy for extrinsic compression but may not be a great strategy for draining thick fungal infected urine. It would perhaps be better to use a singl e larger diameter stent or perhaps even using a 10.2 [place] nephroureteral tube but transecting the kidney portion off the tube and only using the ureteral port ion as an indwelling stent. One could also admit the patient to the hospital wi ureteral catheters externalized and run amphotericin irrigation over the cour se of the week and a retrograde fashion. I explained how important it was to kn ow the exact yeast type and sensitivity patterns. I gave him many options to ink about and he will discuss with his urologist and follow-up with me as needed . I spent > 45 min with the patient with over 50% of the time counseling and coordinating care. Plan 1. UA/Ucx 2. RTC PRN. [employer] documented in this encounter Plan of Treatment Care Team Description Date Type Specialty Rimma Irving MD [address] [id number] 05/17/2019 Office Visit Hematology and Oncology Order Schedule Name Type Priority Associated Diagnoses Ordered: 05/04/2019 CULTURE, Microbiology Routine Obstructive uropathy URINE/SENSITIVITY ON ALL Ordered: 05/04/2019 URINALYSIS W REFLEX MICRO Lab Routine Obstructive uropathy Health Maintenance Due Date Last Done Comments TETANUS SHOT (ADULT) 1973 BMI FOLLOW UP PLAN 1976 HIV SCREENING 1976 COLON CANCER SCREENIN07/30/2021 07/30/2016 COLONOSCOPY HEPATITIS C SCREENING Completed 08/19/2016 FLU VACCINE > 6 MONTHS Completed 01/14/2019 documented as of this encounter Procedures Comments Procedure Name Priority Date/Time Associated Diagnosis POCT URINALYSIS DIPSTICK Routine 05/04/2019 Obstructive uropathy documented in this encounter Results * POCT URINALYSIS DIPSTICK (05/04/2019) COLOR UA Light Yellow YELLOW/STRAW CLARITY UA Cloudy CLEAR GLUCOSE UA Negative NEGATIVE BILIRUBIN UA Negative NEGATIVE KETONES UA Negative NEGATIVE SPECIFIC 1.010 1.005 - 1.035 GRAVITY UA BLOOD UA Negative NEGATIVE PH UA 5.0 5 - 9 PROTEIN UA Trace NEGATIVE UROBILINOGEN UA 0.02 E.U/DL NORMAL MG/DL LEUKOCYTE SMALL NEGATIVE ESTERASE UA NITRITE UA Negative NEGATIVE REDUCING SUBSTANCES URINE Specimen documented in this encounter Visit Diagnoses Diagnosis Obstructive uropathy - Primary Urinary obstruction, unspecified Retained ureteral stent Other complications due to genitourinary device, implant, and graft Candiduria Candidiasis of other urogenital sites Stage 4 chronic kidney disease (HCCode) documented in this encounter Insurance Type Payer Benefit Subscriber ID Effective Phone Address Plan / Dates Group [facility] Enduring [employer] BLUE xxxxxxxxxxxx 2017-P [address] resent [id number] [id number] [phone] [facility] documented as of this encounter
--- OUTSIDE RECORDS SUMMARY | 2019-05-19 11:21 | XMS REPORT | Summary of Care ---
Author Author [facility] Organization [facility] Address Unknown Phone Unavailable Care Team Providers Care Calender Inspector Name Role Phone Robi Card PCP Reason for Visit * Reason Comments Follow Up * Consult, Test & Treat (Routine) Referred By Contact Referred To Contact Status Reason Specialty Diagnoses / Procedures Rimma Irving MD [address] [place] [id number] Rimma Irivng MD [address] [place] [id number] Authorized Medical Oncology Procedures / Hematology and ESTABLISHED OFFICE Oncology VISIT Encounter Details Care Team Description Date Type Department Rimma Irving MD [facility] [address] [address] Follow Up 05/17/2019 Office Visit [facility] Nghia Leonard [facility] [place] [id number] [facility] 7th Floor, [address] [place] [address] Allergies Comments Active Allergy Reactions Severity Noted Date Makes nausea worse Makes nausea worse Promethazine Nausea And 06/05/2015 Vomiting tingling lips Ceftriaxone Sodium In 03/16/2018 Dextrose documented as of this encounter (statuses as of 05/18/2019) Medications End Date Status Medication Sig Dispensed [...] Gastroesophageal reflux disease without esophagitis Active B Qlnxoyo-U-H-Zn (MYBEC Take by 0 OR)Indications: Malignant mouth [...] MOUTH EVERY SIX TO EIGHT HOURS NEEDED. documented as of this encounter (statuses as of 05/18/2019) Active Problems Problem Noted Date Malignant neoplasm [...] as of this encounter (statuses as of 05/18/2019) Resolved Problems Problem Noted Date Resolved Date 6th nerve palsy 09/17/2015 09/25/2017 documented as of this encounter (statuses as of 05/18/2019) Social History Date Tobacco Use Types Packs/Day [...] Signs Reading Time Taken Comments Vital Sign 114/74 05/17/2019 9:02 AM INDUSTRIAL TRUCK OPERATOR Blood Pressure 89 05/17/2019 9:02 AM INDUSTRIAL TRUCK OPERATOR Pulse 36.5 C (97.7 F) 05/17/2019 9:02 AM INDUSTRIAL TRUCK OPERATOR Temperature - - Respiratory Rate - - Oxygen Saturation - - Inhaled Oxygen Concentration 110.8 kg (244 lb 3.2 oz) 05/17/2019 9:02 AM INDUSTRIAL TRUCK OPERATOR Weight 175.3 cm (5' 9") 05/17/2019 9:02 AM INDUSTRIAL TRUCK OPERATOR Height 36.06 05/17/2019 9:02 AM INDUSTRIAL TRUCK OPERATOR Body Mass Index documented in this encounter Patient Instructions * Patient Instructions* Abel Love MA - 05/17/2019 9:00 AM INDUSTRIAL TRUCK OPERATOR [facility] SECTION OF ONCOLOGY/HEMATOLOGY [phone] FAX [phone] Please note that all labs and or imaging results will be discussed at the next o ffice visit unless told otherwise. if a problem occurs after hours please contact our office and have physician educational director paged [phone] Patient Instructions: (to be completed before next visit) Please don't hesitate to call if you have any questions or concerns before your appt. TELL US ABOUT YOUR EXPERIENCE You may receive an email or letter from [facility] via our partn er, [employer]. This is a survey about your experience today. Your feedback is important to us so we can improve. If any question does not apply to your visit, please leave it blank. Our goal is to ensure you have an exceptional experience at [facility]. If for any reason you cannot rate your experience as very good, pl ease let a member of our staff know so we can make immediate improvements. Thanks Abel Love MA STRIAL TRUCK OPERATOR documented in this encounter Progress Notes * Rimma Irving MD - 05/17/2019 9:00 AM INDUSTRIAL TRUCK OPERATOR Chief complaint: patient with metastatic NSCLC is here for follow-up History of present illness/ Oncological history Stage [...] uptake. - 07/17/2013 bilateral ureteral stent Initial [facility] Visit: Previously untreated daniel bailon - 07/20/2013 [...] L 9th rib: 09/18-09/2410/08/2015 Progression ? PET/CT Focal consolidation laterally in the right lower lung has resolved and presumably was infectious or inflammatory. Metabolic activity that projects at t he right hilum may actually be in the new liver metastasis. There is a 2nd small liver lesion also concerning for metastasis. Renal metastases appear new from A pril and underappreciated on the PET/CT. Bone metastases are better evaluated at PET/CT. ? 10/24/2015 - dabrafenib-trametinib initiated 10/2015 and=>achieved metabolic CR Lost insurance coverage at [facility] and sought assistance at [facility]-> continued treatment w/ dabrafenib/trametinib. USG: renal showed L hydro, and small [...] new metastasis - CT AP 09/13/16 @ [facility]: Distal L ureteral calculus with resulting minimal L hydroureter and hydronephrosis - 09/15/16: discharged from [facility] after admitted with L flank pain, dehydra tion, acute renal disease. L ureteral stent placed. Started on Fentanyl patch 25 mcg - Keytruda 200 mg C1 09/17/16, C2 10/07, C3 10/29/16 - PET 11/16/16: Positive response to treatment with smaller liver lesion with low er uptake and resolution of level IV and retroclavicular nodes - Keytruda 200 mg C4 11/18/16, C5 9/13, C6 12/30/16 - PET/CT 01/18/17: Positive response [...] ureteral stents - 10/13/17 Ureteral stent exchange [facility] - Keytruda 200 mg #19 8/, #20 9/5, #21 9/26 - 01/07/18 PET/CT: New development of R [...] keytruda received - 10/26/18: rash worsened, grade 2. keytruda stopped - PET/CT scan 11/11/18: disease progression with respect to the presumed metasta tic lymph nodes in the abdomen and pelvis. Stable post-treatment fibrosis in the right lung. Stable mild uptake in a left posterior neck lymph node that is prob ably on a reactive basis but continued monitoring is recommended. Decreased smal l right pleural effusion that remains unassociated with abnormal uptake. Interva l increased metabolic activity in the right adrenal gland that is progressively concerning for being metastatic. - CT guided biopsy right pelvic lymph node (12/05/18): metastatic poorly differe ntiated adenocarcinoma compatible with lung primary, TTF1 and napsin A stain pos itive - carboplatin/taxol C1 12/07/18, C2 12/28/18; C3 01/18/19; C4 02/15/19; C5 ; C6 03/28/19 - PET/CT scan (03/03/19): interval decrease size and metabolic activity of multi ple lymph nodes in the abdomen and pelvis representing a positive response to th erapy. There is however new hypermetabolic right inguinal lymph node that is wor risome for being metastatic. A left posterior neck lymph node has also increase in size and metabolic activity suggesting disease progression there. Stable post -surgical changes in the right lung. Interval decreased metabolic activity in th e right adrenal gland suggesting a positive response to therapy there. Increased right pleural effusion that remains unassociated with abnormal uptake. Persiste nt and more conspicuous bilateral hydroureter and hydronephrosis despite the unc hanged positive of bilateral nephroureteral stents. - XRT to lymph nodes started on 05/09/19 Interval history Patient is here with his . Saw dr Zavala from urology Started XRT Had excision of nevus lower lateral left back on 04/28/19 He reported intermittent abdominal pain on the left and right side, for 7-10 day s taking norco, not affected by food, Reported constipation well controlled Denies other major complaints. Denies fever, bleeding PMH: Past Medical History: Diagnosis Date Adenocarcinoma of lung (HCCode) Borderline diabetes DVT (deep venous thrombosis) (HCCode) Kidney stone PSH: Past Surgical History: Procedure Laterality Date HX KYPHOSIS SURGERY HX LOBECTOMY HX TONSILLECTOMY HX URETER STENT PLACEMENT Social history: Social History Socioeconomic History Marital [...] No Frequency: Never Drug use: Not Currently Sexual activity: Not on file Lifestyle Physical activity: Days per week: Not on file Minutes per session: Not on file Stress: Not on file Relationships Social connections: Talks on phone: Not on file Gets together: Not on file Attends protestant service: Not on file Active member of [...] Prior to Visit Medication Sig Dispense Refill acetaminophen As Needed B Sirfcit-U-G-Zn (MYBEC OR) Take by mouth daily. clobetasol Apply topically twice a day as needed 50 mL 11 finasteride Take 5 mg by mouth daily. hydrocodone-acetaminophen TAKE ONE (1) TABLET(S) BY MOUTH EVERY SIX TO EIGHT HOURS NEEDED. 0 levothyroxine Take 75 mcg by mouth daily. liothyronine Take 25 mcg by mouth daily. Take 2 tabs once daily loratadine Take 10 mg by mouth daily as needed. NIFEdipine Take 30 mg by mouth daily. ondansetron Take 1 Tab by mouth every 8 hours as needed for Nausea. 15 Tab 3 pravastatin Take 40 mg by mouth daily. senna Take 2 tabs by mouth daily 60 Tab 4 Tamsulosin HCl Take 0.4 mg by mouth daily. Take 2 tabs by mouth daily triamcinolone Apply to affected area twice a day as needed (Patient taking d ifferently: as needed. Apply to affected area twice a day as needed) 454 g 3 triamcinolone Apply to affected area 2 times daily. Avoid face/groin/axillae 454 g 3 VALACYCLOVIR HCL OR Take by mouth as needed. 1/2 tab daily No facility-administered medications prior to visit. Review of system: Review of Systems Constitutional: Positive for malaise/fatigue (back to baseline). Negative for ch ills, fever and weight loss. HENT: Negative. Eyes: Negative. Respiratory: Positive for cough (dry ). Negative for hemoptysis, sputum producti on, shortness of breath and wheezing. Cardiovascular: Negative. Gastrointestinal: Positive for abdominal pain (intermittent). Negative for diarr hea, nausea and vomiting. Genitourinary: Negative. Musculoskeletal: Negative. Skin: Negative. Negative for rash (left flank resolved). Neurological: Negative. Negative for tingling. Endo/Heme/Allergies: Negative. Psychiatric/Behavioral: Negative. Physical exam: Physical [...] distension and no mass. There is no abdominal tenderness. There is no rebound and no guarding. Musculoskeletal: Normal range of motion. General: No edema. Lymphadenopathy: He has cervical adenopathy (increased in size, abour 4 cm in size). Neurological: He is alert and oriented to person, place, and time. No cranial ne rve deficit. Skin: Skin is warm. No rash noted. No erythema. No pallor. Mild induration over right forearm (?superficial thrombophlebitis) Psychiatric: He has a normal mood and affect. Vital signs: Vitals: 05/17/19 0902 BP: 114/74 BP Location: left arm Patient Position: Sitting Pulse: 89 Temp: 97.7 F (36.5 C) TempSrc: Oral Weight: 244 lb 3.2 oz (110.8 kg) Height: 5' 9" (1.753 m) Labs: From 05/15/19 Reviewed Assessment and plan: Stage 4 BRAF-mutant NSCLC (adenocarcinoma) Diagnosed in 2013 w/ locally advanced disease s/p neoadjuvant cisplatin/pemetrex ed, chest XRT, local recurrence s/p RLL lobectomy/LN dissection, recurrence with bony mets s/p palliative bone XRT, s/p dabrafenib/trametinib with initial good response then failure in lymph nodes Was switched to keytruda on August 2016 with initially good disease control keytruda was discontinued on October 2018 due to disease progression on PET/CT an d Grade 3 immunotherapy related rash and also > 2 years on treatment IR biopsy of right pelvic lymph node done on 12/05/18, consistent with metastatic adenocarcinoma of lung origin. Started on palliative chemotherapy with carboplatin and taxol on 12/07/18 with ne ulasta. No avastin given frequent instrumentation, no pemetrexed given CKD Restaging PET/CT scan from 03/03/19 consistent with mixed response in favor of an overall good response to therapy: positive response in the abdomino-pelvis lymph nodes and right adrenal gland, new right inguinal lymph node (1.6 cm) and incr ease in left posterior neck lymph node. I suspect the left neck lymph node grew between the time he discontinued keytruda till he started the carbo/taxol since it was clinically noticeable when we started carbo/taxol and shrunk clinically o n palpation on carbo/taxol. Decision was thus to continue with total of 6 carbo/ taxol S/p 6 round of carbo.taxol with neulasta completed on 03/28/19, complicated with thrombocytopenia Getting XRT started on 05/09/19 anticipated to be completed on 05/30/19 Plan for re-challenge with BRAF/MEK inhibitor (dabrafenib/trametinib) to start a fter excision of skin lesion and after completion of XRT. Patient already consen jam. Skin nevus complete excision left lower back 2D echo (05/04/19): EF above 60% EKG 05/17/19 QTc 386 ms, Q wave lead aVF, asymptomatic, not medically significant Baseline eye exam was done, showed small aneurysm Instructed not to start these 2 medications until we clear him to do so and shou ld not be taken with radiation, he voiced his understanding. Will likely start 1 week after xrt ends Needs derm exam prior to initiation of braf/mek inhibitor, every 2 months while on it for up to 6 months after discontinuation Assess LVEF (by echocardiogram or MUGA scan) prior to combination therapy initia tion, at 1 month, and then every 2 to 3 months while on therapy. [facility] on biopsy from 12/05/18: BRAF mutation (V600E), SANDI, TMB inter mediate, mutations on APC, SETD2, TP53, amplification of NKX2-1, NFKB1A non acti onable rtc in 2 weeks Abdominal pain Different than previous pain on left flank from shingles Takes small dose norco Likely cancer related from pelvis lymph node abd exam is benign If doesn't get better, may need w/u such as egd, colonoscopy, ct abdomen Ok to try norco, may alternate with tylenol not to exceed 3000 mg of tylenol per day (including the tylenol in the norco) Hydronephrosis w/ eval showing ureter stricture w/ renal insufficiency Followed by urology and nephrology Getting stent exchanged at short interval Continue f/u with nephrology and urology Getting second opinion with urologist at [facility] Creatinine 3.82 on 05/15/19 Cutaneous lesions S/p excision left upper back lesion (10/26/18): Scar with biopsy site changes. No residual atypical melanocytic proliferation S/p right shoulder lesion shave biopsy (10/26/18): positive invasive squamous ce ll carcinoma. Right shoulder re-excision on (11/08/18) showed residual SCC, negative margins Had lesion excised from left flank on 02/06/19: Compound melanocytic nevus with architectural disorder and severe cytologic atypia. Complete excision of left la teral lower back 04/28/19 with margins are free of dysplastic nevus S/p excision of nevus right chest (04/25/19): Macular seborrheic keratosis Followed by dermatology Discussed risk for cutaneous cancer with BRAF/MEK inhibitor and I emailed Dr. Monica pratt regarding our recommendations to do skin exam while on these medications Shingles Resolved Completed valtrex on gabapentin for nerve type pain OK for vaccine, needs to talk to PCP Thrombocytopenia Chemo related Recovered plt 129 k on 05/15/19 All questions answered to patient and his up to their satisfaction Rimma Irving MD FACP Real Estate Utilization Officer Hematology-Oncology [facility] 05/17/19 STRIAL TRUCK OPERATOR documented in this encounter Plan of Treatment Care Team Description Date Type Specialty Rimma Irving MD [address] [address] [phone] 05/31/2019 Office Visit Hematology and Oncology Order Schedule Name Type Priority Associated Diagnoses Expected: 05/31/2019, Expires: 11/15/2019 CBC W/AUTO DIFF WITH Lab STAT Metastatic non-small cell PLATELETS lung cancer (HCCode) Expected: 05/31/2019, Expires: 11/15/2019 COMPREHENSIVE METABOLIC Lab STAT Metastatic non-small cell PANEL lung cancer (HCCode) Expected: 05/31/2019, Expires: 11/15/2019 MAGNESIUM Lab STAT Metastatic non-small cell lung cancer (HCCode) Health Maintenance Due Date Last Done Comments TETANUS SHOT (ADULT) 1973 BMI FOLLOW UP PLAN 1976 HIV SCREENING 1976 COLON CANCER SCREENIN07/30/2021 07/30/2016 COLONOSCOPY HEPATITIS C SCREENING Completed 08/19/2016 FLU VACCINE > 6 MONTHS Completed 01/14/2019 documented as of this encounter Results * ELECTROCARDIOGRAM COMPLETE (05/18/2019 8:10 AM INDUSTRIAL TRUCK OPERATOR) Narrative Performed At Result approved by You Rodriguez MD on 05/18/19 documented in this encounter Visit Diagnoses Diagnosis Metastatic non-small cell lung cancer (HCCode) - Primary documented in this encounter Insurance Type Payer Benefit Subscriber ID Effective Phone Address Plan / Dates Group [employer] BLUE [facility] BLUE xxxxxxxxxxxx 2017-P [address] [id number] [employer] [facility] - [phone] BCBS documented as of this encounter
--- OUTSIDE RECORDS SUMMARY | 2019-05-19 11:21 | XMS REPORT | Summary of Care ---
Author Author [facility] Organization [facility] Address Unknown Phone Unavailable Care Team Providers Care Corporate Pilot Name Role Phone Robi Card PCP Reason for Referral * Consult, Test & Treat (Routine) Referred By Contact Referred To Contact Status Reason Specialty Diagnoses / Procedures Rimma Irving MD [facility] [address] [place] [address] Mesifn Ro MD [address] [facility] [address] [facility] [place] [place] [address] Pending Consult, Test, and Urology Diagnoses Treat Metastatic non-small cell lung cancer (HCCode) P rocedures RI OFFICE OUTPATIENT NEW 30 MINUTES Reason for Visit * Reason Comments Follow Up * Consult, Test & Treat (Routine) Referred By Contact Referred To Contact Status Reason Specialty Diagnoses / Procedures Robi Card [address] [facility] [address] [place] [address] [facility] [address] [place] [address] Authorized Medical Oncology Diagnoses / Hematology and f/u in 22 days Oncology P rocedures ESTABLISHED OFFICE VISIT Encounter Details Care Team Description Date Type Department Rimma Irving MD [facility] [address] [place] [address] [phone] Follow Up 04/19/2019 Office Visit [facility] [address] 7[address], [address] [place] [address] Allergies Comments Active Allergy Reactions Severity Noted Date Makes nausea worse Makes nausea worse Promethazine Nausea And 06/05/2015 Vomiting tingling lips Ceftriaxone Sodium In 03/16/2018 Dextrose documented as of this encounter (statuses as of 04/20/2019) Medications End Date Status Medication Sig Dispensed [...] Gastroesophageal reflux disease without esophagitis Active B Fzjpnga-U-T-Zn (MYBEC Take by 0 OR)Indications: Malignant mouth [...] days then 1/2 tab for 7 days Additional information Patient not taking. Informant: Self, Reported on 04/19/2019 9:43 AM Active triamcinolone (KENALOG) Apply to 454 g 3 0.1 % cream affected area 9 twice a day as needed Additional information Patient taking differently: PRN, Apply to affected [...] EVERY SIX TO EIGHT HOURS NEEDED. Active gabapentin (NEURONTIN) as needed. 0 100 MG capsule 9 Active cephALEXin (KEFLEX) 500 Take 500 mg 0 MG capsule by mouth two times daily. 04/27/2019 Active Dabrafenib Mesylate 75 MG Take 150 mg 120 Cap 6 CAPS by mouth two 9 times daily for 30 days. Additional information Patient not taking. Reported on 04/19/2019 9:43 AM 04/27/2019 Active Trametinib Dimethyl Take 2 mg by 30 Tab 6 Sulfoxide 2 MG TABS mouth daily 9 for 30 days. 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 09/25/2017 documented as of this encounter (statuses as of 04/20/2019) Social History Date Tobacco Use Types Packs/Day [...] Signs Reading Time Taken Comments Vital Sign 125/84 04/19/2019 9:42 AM OFFICE CLERK Blood Pressure 104 04/19/2019 9:42 AM OFFICE CLERK Pulse 36.7 C (98 F) 04/19/2019 9:42 AM OFFICE CLERK Temperature - - Respiratory Rate - - Oxygen Saturation - - Inhaled Oxygen Concentration 111.4 kg (245 lb 9.6 oz) 04/19/2019 9:42 AM OFFICE CLERK Weight 175.3 cm (5' 9") 04/19/2019 9:42 AM OFFICE CLERK Height 36.27 04/19/2019 9:42 AM OFFICE CLERK Body Mass Index documented in this encounter Patient Instructions * Patient Instructions* Evelin Shearer RN - 04/19/2019 9:[address] [facility] SECTION OF ONCOLOGY/HEMATOLOGY [phone] FAX [phone] Please note that all labs and or imaging results will be discussed at the next o ffice visit unless told otherwise. if a problem occurs after hours please contact our office and have physician credit front office developer paged [phone] Patient Instructions: (to be completed before next visit) Please don't hesitate to call if you have any questions or concerns before your appt. TELL US ABOUT YOUR EXPERIENCE You may receive an email or letter from [facility] via our partn er, Lilliam Miller. This is a survey about your experience today. Your feedback is important to us so we can improve. If any question does not apply to your visit, please leave it blank. Our goal is to ensure you have an exceptional experience at [facility]. If for any reason you cannot rate your experience as very good, pl ease let a member of our staff know so we can make immediate improvements. Thanks Evelin Shearer RN, BSN CE CLERK documented in this encounter Progress Notes * Rimma Irving MD - 04/19/2019 9:30 AM OFFICE CLERK Chief complaint: patient with metastatic NSCLC is [...] uptake. - 07/17/2013 bilateral ureteral stent Initial [facility] Visit: Previously untreated d uvaldo - 07/20/2013 - Cancer Staged: CT CHEST: [...] and=>achieved metabolic CR Lost insurance coverage at [facility] and sought assistance at [facility]-> continued treatment w/ dabrafenib/trametinib. USG: renal [...] new metastasis - CT AP 09/13/16 @ [facility]: Distal L ureteral calculus with resulting minimal L hydroureter and hydronephrosis - 09/15/16: discharged from [facility] after admitted with L flank pain, dehydra [...] C10 03/24, C11 04/20/17, C12 - 05/04/17- ([facility])NM renal scan: L kidney shows thin rim [...] ureteral stents - 10/13/17 Ureteral stent exchange [facility] - Keytruda 200 mg #19 11/10, #20 [...] unc hanged positive of bilateral nephroureteral stents. Interval history Patient is here with his . Patient stated he was in the hospital earlier this week due to worsening renal f ailure, creatinine went up to 9, had stents exchanged. Had 3 PRBC and 2 units of platelets too. Recovering now. Denies other major complaints. Denies fever, bleeding [...] file Gets together: Not on file Attends rastafari service: Not on file Active member of [...] Sig Dispense Refill acetaminophen As Needed B Rpmtboi-H-G-Zn (MYBEC OR) Take by mouth daily. cephALEXin Take 500 mg by mouth two times daily. clobetasol Apply topically twice a day as needed 50 mL 11 Dabrafenib Mesylate Take 150 mg by mouth two times daily for 30 days. 120 Ca p 6 finasteride Take 5 mg by mouth daily. gabapentin as needed. 0 hydrocodone-acetaminophen TAKE ONE (1) TABLET(S) BY MOUTH [...] 7 days (Patient not taking: Reported on 019) 80 Tab 2 senna Take 2 tabs by mouth daily 60 Tab 4 Tamsulosin HCl Take 0.4 mg by mouth daily. Take 2 tabs by mouth daily Trametinib Dimethyl Sulfoxide Take 2 mg by mouth daily for 30 days. 30 Tab 6 triamcinolone Apply to affected area twice a [...] of breath and wheezing. Cardiovascular: Negative. Gastrointestinal: Negative for abdominal pain, diarrhea, nausea and vomiting. Genitourinary: Negative. Musculoskeletal: Negative. Skin: Positive for rash (shingles left flank dry associated with deep soreness). Neurological: Negative. Negative for tingling. Endo/Heme/Allergies: Negative. [...] No edema. Lymphadenopathy: He has cervical adenopathy (left supraclavicular indurated lymph nodes slightl y bigger around 1 inch in size, smaller satellite LN less than 1 cm in size). Neurological: He is alert and oriented to person, place, and time. No cranial ne rve deficit. Skin: Skin is warm. Rash (shingles left flank, dry, no more vesicles, fading, im proving since last time) noted. No pallor. Mild induration over right forearm (?superficial thrombophlebitis) Psychiatric: He has a normal mood and affect. Vital signs: Vitals: 04/19/19 0942 BP: 125/84 BP Location: right arm Patient Position: Sitting Pulse: 104 Temp: 98 F (36.7 C) TempSrc: Oral Weight: 245 lb 9.6 oz (111.4 kg) Height: 5' 9" (1.753 m) Labs: [...] neulasta completed on 03/28/19, complicated with thrombocytopenia Plan for consolidative XRT followed by re-challenge with BRAF/MEK inhibitor Saw Dr. Lomax, awaiting insurance approval baseline dermatology exam pending 2d echo and EKG not done yet Baseline eye exam pending Instructed not to start these 2 medications until we clear him to do so and shou ld not be taken with radiation, he voiced his understanding [facility] on biopsy from 12/05/18: BRAF mutation (V600E), SANDI, TMB inter mediate, mutations on APC, SETD2, TP53, amplification of NKX2-1, NFKB1A non acti onable Peripheral neuropathy Taxol related Grade 1 Resolved monitor Hydronephrosis w/ eval showing ureter stricture w/ renal insufficiency Followed by urology and nephrology Getting stent exchanged at short interval Continue f/u with nephrology and urology He wants to get second opinion urologist at [facility], referral sent. Creatinine 5.9 today, was more than 9 during his recent hospitalization so trend ing down Cutaneous lesion S/p excision left upper back lesion (10/26/18): Scar with biopsy site changes. No residual atypical melanocytic proliferation S/p right shoulder lesion shave biopsy (10/26/18): positive invasive squamous ce ll carcinoma. Right shoulder re-excision on (11/08/18) showed residual SCC, negative margins Had lesion excised from left flank on 02/06/19: Compound melanocytic nevus with architectural disorder and severe cytologic atypia Followed by dermatology Discussed risk for cutaneous cancer with BRAF/MEK inhibitor and I emailed Dr. Monica pratt regarding our recommendations to do skin exam while on these medications Abdominal pain /diarrhea Grade 1-2, happens for 10 days after chemo resolved Can take dicyclomine Shingles Resolved Completed valtrex on gabapentin for nerve type pain May need vaccine at some point after completing cytotoxic chemo, discussed with the patient and he will needs to talk to his PCP Instructed to talk to his pcp about duration and maintenance. Thrombocytopenia Chemo related Went down to 32k Recovering 88k today Monitor Patient is done with [email or web address] All questions answered to patient and his up to their satisfaction Rimma Irving MD FACP Manager Medical Device Hematology-Oncology [facility] [employer] 04/19/19 CE CLERK documented in this encounter Plan of Treatment Care Team Description Date Type Specialty Rimma Irving MD [address] [facility] [address] [place], [place] [id number] 05/17/2019 Office Visit Hematology and Oncology Order Schedule Name Type Priority Associated Diagnoses Expected: 05/17/2019 (Approximate), Expires: 10/18/2019 CBC W/AUTO DIFF WITH Lab STAT Metastatic non-small cell PLATELETS lung cancer (HCCode) Expected: 05/17/2019 (Approximate), Expires: 10/18/2019 COMPREHENSIVE METABOLIC Lab STAT Metastatic non-small cell PANEL lung cancer (HCCode) Expected: 05/17/2019 (Approximate), Expires: 10/18/2019 MAGNESIUM Lab STAT Metastatic non-small cell lung cancer (HCCode) Order Schedule Name Type Priority Associated Diagnoses Ordered: 04/19/2019 AMB REF TO UROLOGY [facility] Outpatient Routine Metastatic non-small cell Referral lung cancer (HCCode) Health Maintenance Due Date [...] Phone Address Plan / Dates Group O [employer] BLUE xxxxxxxxxxxx 2017-P [address] [id number] [facility] [address] BCBS documented as of this encounter
[2019-05-19 14:31] VITALS: BP 113/68
--- NOTE | 2019-06-21 00:52 | Operative Report ---
DATE OF PROCEDURE: 05/19/2019 SURGEON: Jorge Zendejas MD PREOPERATIVE DIAGNOSES: 1. Urethral stricture disease. 2. Bilateral ureteral strictures. 3. Bilateral hydronephrosis due to ureteral strictures. 4. Bilateral double ureteral stents for total of four indwelling ureteral stents. POSTOPERATIVE DIAGNOSES: 1. Urethral stricture disease. 2. Bilateral ureteral strictures. 3. Bilateral hydronephrosis due to ureteral strictures. 4. Bilateral double ureteral stents for total of four indwelling ureteral stents. OPERATION PERFORMED: 1. Cystourethroscopy with calibration and dilation of urethral stricture disease (separate procedure performed for the stricture disease). 2. Cystourethroscopy with removal of four indwelling ureteral stents (separate procedure performed for the diagnosis of stents). 3. Cystourethroscopy with bilateral ureteral stricture dilation (separate procedure performed for the diagnosis of stricture). 4. Cystourethroscopy with placement of a total of four indwelling ureteral stents, two on each side (separate procedure performed to relieve the hydronephrosis). 5. Radiological services with supervision and interpretation of stricture dilation. 6. Interpretation of retrograde ureteropyelography. 7. Supervision of fluoroscopy, no radiologist present. ANESTHESIA: General. COMPLICATIONS: None. CLINICAL SUMMARY: Please refer to prior dictations and prior data. OPERATIVE PROCEDURE IN DETAIL: Informed consent was verified. Paulo Wolf was properly identified, taken to the operating room, placed on the cystoscopy table in supine position. Anesthesia was uneventfully begun. The patient was then carefully and gently repositioned in dorsal lithotomy position. All pressure points well padded. His genitalia were prepared and draped in usual sterile fashion. The cystoscope sheath with a visual obturator in place was atraumatically inserted into the patient's urethra. The patient had wide caliber stricture disease over the distal half of the urethra. This was dilated with the visual obturator in place thus calibrated to 22.5-Maori in size. We passed through the normal sphincteric region through the prostate bed, which was significant for BPH and entered the patient's bladder where there was no suspicious lesions, but there were proteinaceous debris consistent with yeast that was coating the patient's stents. A guidewire was then placed into the right ureter and guided to the level of the patient's kidney. The two stents were removed and discarded. A double-lumen ureteral catheter was then placed over the guidewire and guided to the level of the patient's kidney. Hydronephrotic drip was obtained. This way we dilated the ureteral strictures. Contrast was injected. Secondary guidewire was placed. With cystoscopic and fluoroscopic guidance, two separate indwelling ureteral stents were placed, coiled the patient's kidney as well as the patient's bladder. The retaining sutures were cut short. An identical site of maneuvers was performed on the left hand side with similar findings. Interpretation of retrograde ureteropyelography contrast was instilled in retrograde fashion bilaterally via the double-lumen ureteral catheters. The patient had bilateral hydronephrosis. There was no extravasation. The stents were in good position, coiled the patient's kidneys as well as the patient's bladder at the end of the case. The patient's bladder was drained. Cystoscope was withdrawn. Belladonna and opium suppository were placed revealing a large prostate, smooth and non-fluctuant without any nodules. The patient was then uneventfully reversed from anesthesia and taken to recovery room in stable condition. Specimens from the surgery include a hydronephrotic drip from the right kidney for culture even though this drip was clear. 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 Jorge Zendejas MD [place]/MODL /[id number]
== END | disposition home or self-care (01) ==
LOC: OR 10:55
PROVIDERS: ATTEND Urology
DX: N13.1 Hydronephrosis with ureteral stricture, not elsewhere classified (principal); N35.919 Unspecified urethral stricture, male, unspecified site; Z46.6 Encounter for fitting and adjustment of urinary device; N40.0 Benign prostatic hyperplasia without lower urinary tract symptoms; N18.9 Chronic kidney disease, unspecified; N40.1 Benign prostatic hyperplasia with lower urinary tract symptoms; B37.49 Other urogenital candidiasis; R35.1 Nocturia; R97.20 Elevated prostate specific antigen [PSA]; E29.1 Testicular hypofunction; R80.9 Proteinuria, unspecified; E66.9 Obesity, unspecified; I10 Essential (primary) hypertension; E03.9 Hypothyroidism, unspecified; Z88.1 Allergy status to other antibiotic agents; Z88.8 Allergy status to other drugs, medicaments and biological substances; Z68.38 Body mass index [BMI] 38.0-38.9, adult; Z85.118 Personal history of other malignant neoplasm of bronchus and lung
CPT/HCPCS: 74420; 87086; C1758; C2617; J1450; J1956; J2001; J2250; J2405; J3010